=== PATIENT | male | born 1945 | race Caucasian/White ===

== ENCOUNTER 2020-03-26 19:06 | Emergency (ER) | payer OTHER, MEDICARE ==
[2020-03-26 19:58] LABS: Absolute Lymphocytes (CBC) 1.4 K/uL (0.7-4.9); Basophils % 0.4 % (0-1.3); Hematocrit 40.6 % (39.6-49.0); Lymphocytes % 24.2 % (15.3-44.8); RBC Red Blood Cell Count 4.45 M/uL (4.33-5.43)
[2020-03-26 20:14] LABS: ALT/SGPT 13 U/L (12-78); AST/SGOT 20 U/L (15-37); Alkaline Phosphatase 100 U/L (45-117); BUN Blood Urea Nitrogen 18 mg/dL (7-18); Bicarbonate 31 mmol/L (21-32); Bilirubin Direct 0.1 mg/dL (0-0.2); Bilirubin Total 0.4 mg/dL (0.2-1.0); Glucose Level 111 mg/dL (74-106); Magnesium 2.4 mg/dL (1.8-2.4); NT PRO-BNP 117 pg/mL (<450); Potassium 3.8 mmol/L (3.5-5.1); Protein, Total 8.5 g/dL (6.4-8.2); Sodium Level 140 mmol/L (136-145); Troponin (Emerg Dept Use Only) < 0.02 ng/mL (0.0-0.045)
[2020-03-26] MEDS ORDERED: HYDRALAZINE HCL 20 MG/ML VIAL ONE (20:45)
--- NOTE | 2020-03-26 21:02 | RAD REPORT ---
EXAM DESCRIPTION: RAD - Chest Single View - 03/26/2020 8:23 pm CLINICAL HISTORY: SOB Chest pain. COMPARISON: No comparisons FINDINGS: Portable technique limits examination quality. The lungs are emphysematous but grossly clear. The heart is normal in size. No displaced fractures. IMPRESSION: No acute intrathoracic process suspected.
--- NOTE | 2020-03-26 21:04 | RAD REPORT ---
EXAM DESCRIPTION: RAD - Foot Left 3 View - 03/26/2020 8:23 pm CLINICAL HISTORY: SMASH INJURY COMPARISON: No comparisons FINDINGS: Soft tissue injury seen involving the great toe. No underlying fracture is seen.
--- NOTE | 2020-03-26 21:04 | RAD REPORT ---
EXAM DESCRIPTION: RAD - Foot Right 3 View - 03/26/2020 8:23 pm CLINICAL HISTORY: SMASH INJURY COMPARISON: No comparisons FINDINGS: Soft tissue swelling is seen affecting the second toe. Oblique fracture involves phalanx o f the second toe is suspected.
--- NOTE | 2020-03-26 22:35 | EDPHYS ---
Physician Documentation [facility] Name: Gaurav Hector Age: 74 yrs Sex: Male : 1945 Arrival Date: 03/26/2020 Time: 19:07 Bed 8 Private MD: Sophy Lopez H ED Physician Allan Cuevas HPI: 03/26 19:36 This 74 yrs old Male presents to ER via Wheelchair with complaints of High pm1 Blood Pressure, Feet Swelling. 19:36 The patient has elevated blood pressure and discovered this at home, with a home pm1 device. Onset: The symptoms/episode began/occurred today. Associated signs and symptoms: Pertinent positives: shortness of breath, Pertinent negatives: chest pain, dizziness, headache, nausea, vomiting. Severity of symptoms: in the emergency department the blood pressure is unchanged. The patient has not experienced similar symptoms in the past, denies history of hypertension. The patient has been recently seen by a physician: the patient's primary care provider, wellness lab work. Patient dropped some weights on both of his feet 1 week ago and had some swelling. He is concerned that he might have a blood clot from the swelling to his feet. No swelling present to bilateral calves, shins, thighs or hamstrings. Historical: - Allergies: 19:31 Sulfa (Sulfonamide Antibiotics); mg2 - Home Meds: 19:31 levothyroxine oral [Active]; Carbidopa-Levodopa Oral [Active]; Sinemet Oral [Active]; mg2 - PMHx: 19:31 Parkinsons; Hypothyroidism; mg2 - PSHx: 19:31 None; mg2 - Immunization history:: Flu vaccine status is unknown. - Social history:: Smoking status: Patient denies any tobacco usage or history of. Patient uses alcohol, occasionally. Patient/guardian denies using street drugs, IV drugs. ROS: 19:36 Constitutional: Negative for fever, chills, and weight loss, Neck: Negative for injury, pm1 pain, and swelling, Cardiovascular: Negative for chest pain, palpitations, and edema. 19:36 Abdomen/GI: Negative for abdominal pain, nausea, vomiting, diarrhea, and constipation, Back: Negative for injury and pain, MS/Extremity: Negative for injury and deformity, Skin: Negative for injury, rash, and discoloration. 19:36 Neuro: Negative for headache, weakness, numbness, tingling, and seizure. 19:36 Respiratory: Positive for shortness of breath, Negative for cough, wheezing. Exam: 19:36 Constitutional: This is a well developed, well nourished patient who is awake, alert, pm1 and in no acute distress. Head/Face: Normocephalic, atraumatic. Neck: Trachea midline, no thyromegaly or masses palpated, and no cervical lymphadenopathy. Supple, full range of motion without nuchal rigidity, or vertebral point tenderness. No Meningismus. 19:36 Abdomen/GI: Soft, non-tender. No guarding or rebound. No evidence of tenderness throughout. Back: No spinal tenderness. No costovertebral tenderness. Full range of motion. Skin: Warm, dry with normal turgor. Normal color with no rashes, no lesions, and no evidence of cellulitis. 19:36 Cardiovascular: Exam negative for acute changes, Rate: normal, Rhythm: regular, Pulses: no pulse deficits are appreciated, Edema: is not appreciated. 19:36 Respiratory: Exam negative for acute changes, respiratory distress. 19:36 Musculoskeletal/extremity: Extremities: grossly normal except: noted in the dorsum of right foot and right second toe: swelling, tenderness. 19:36 Neuro: Exam negative for acute changes, Orientation: is normal, Motor: is normal. Vital Signs: 19:22 BP 203 / 106; Pulse 85; Resp 18; Temp 98; Pulse Ox 100% on R/A; Weight 54.43 kg; Height mg2 5 ft. 0 in. (152.40 cm); Pain 3/10; 20:19 BP 197 / 105; Pulse 94; Resp 18; Pulse Ox 100% on R/A; mg2 20:54 BP 150 / 90; Pulse 93; Resp 18; Pulse Ox 100% ; mg2 21:10 BP 153 / 89; Pulse 95; Resp 18; Pulse Ox 98% ; ea 21:59 BP 162 / 88; Pulse 95; Resp 20; Pulse Ox 100% on R/A; mg2 22:17 BP 139 / 80; Pulse 94; Resp 20; Pulse Ox 99% on R/A; mg2 19:22 Body Mass Index 23.44 (54.43 kg, 152.40 cm) mg2 MDM: 19:19 Patient medically screened. [facility] 20:06 Data reviewed: vital signs. Data interpreted: Pulse oximetry: on room air is 100 %. pm1 Interpretation: normal. 22:32 Counseling: I had a detailed discussion with the patient and/or guardian regarding: the pm1 historical points, exam findings, and any diagnostic results supporting the discharge/admit diagnosis, lab results, radiology results, the need for outpatient follow up, a family practitioner, to return to the emergency department if symptoms worsen or persist or if there are any questions or concerns that arise at home. 22:36 ED course: Patient does not want a prescription for blood pressure medications. Wants pm[facility]. then offered a low starting dose of lisinopril and patient and refused. 03/26 19:26 Order name: Basic Metabolic Panel; Complete Time: 20:14 pm03/26 19:26 Order name: CBC with Diff; Complete Time: 20:14 pm03/26 19:26 Order name: LFT's; Complete Time: 20:14 pm03/26 19:26 Order name: Magnesium; Complete Time: 20:14 pm03/26 19:26 Order name: NT PRO-BNP; Complete Time: 20:14 pm03/26 19:26 Order name: PT-INR; Complete Time: 20:14 pm03/26 19:26 Order name: Troponin (emerg Dept Use Only); Complete Time: 20:14 pm03/26 19:26 Order name: XRAY Chest (1 view); Complete Time: 21:09 pm03/26 19:27 Order name: Foot Right 3 View XRAY; Complete Time: 21: pm03/26 19:27 Order name: Foot Left 3 View XRAY; Complete Time: 21: pm03/26 20:31 Order name: CT Chest For PE Angio 03/26 19:26 Order name: EKG; Complete Time: 19:27 pm03/26 19:26 Order name: Cardiac monitoring; Complete Time: 19:30 pm03/26 19:26 Order name: EKG - Nurse/Tech; Complete Time: 19:30 pm03/26 19:26 Order name: IV Saline Lock; Complete Time: 19:30 pm03/26 19:26 Order name: Labs collected and sent; Complete Time: 19:30 pm1 03/26 19:26 Order name: O2 Per Protocol; Complete Time: 19:30 pm1 03/26 19:27 Order name: O2 Sat Monitoring; Complete Time: 19:31 pm1 03/26 22:15 Order name: Post-op Orthopedic Shoe; Complete Time: 22:32 pm1 Administered Medications: 20:36 Drug: hydrALAZINE 10 mg Route: IV; Rate: calculated rate; Site: right forearm; mg2 22:17 Follow up: Response: No adverse reaction; Blood pressure is lowered; IV Status: mg2 Completed infusion 22:35 Drug: Rocephin 1 grams Route: IV; Rate: calculated rate; Site: right antecubital; ea 22:50 Follow up: Response: No adverse reaction; IV Status: Completed infusion mg2 22:50 Drug: AZITHromycin 500 mg Route: PO; mg2 22:50 Follow up: Response: No adverse reaction; Medication administered at discharge. mg2 Disposition: 03/26/20 22:34 Discharged to Home. Impression: Pneumonia, unspecified organism, Essential (primary) hypertension, Nondisplaced fracture of proximal phalanx of left lesser toe(s) - second toe. - Condition is Stable. - Discharge Instructions: Hypertension, Community-Acquired Pneumonia, Adult, Toe Fracture, How to Take Your Blood Pressure, Snis-it-Rypt, DASH Eating Plan, Managing Your Hypertension. - Prescriptions for Zithromax Z- Flash 250 mg Oral Tablet - take 1 tablet by ORAL route as directed for 5 days Day 1 - take two (2) tablets one time. Day 2, 3, 4 , 5 take one (1) tablet once daily.; 6 tablet. - Medication Reconciliation Form, Thank You Letter, Antibiotic Education, Prescription Opioid Use form. - Follow up: Emergency Department; When: As needed; Reason: Worsening of condition. Follow up: Private Physician; When: 2 - 3 days; Reason: Recheck today's complaints, Continuance of care, Re-evaluation by your physician. - Problem is new. - Symptoms have improved. Addendum: 03/29/2020 10:18 Co-signature as Attending Physician, Allan Cuevas MD I agree with the assessment and c [place] plan of care. Signatures: Dispatcher [employer] EDAllan Flores MD MD cha Marinas, Patrick, ROUSTABOUT SUPERVISOR ROUSTABOUT SUPERVISOR pm1 Yeni Poe, RN RN summer Clem Davis, LENA RN mg2 Corrections: (The following items were deleted from the chart) 03/26 22:51 22:34 03/26/2020 22:34 Discharged to Home. Impression: Pneumonia, unspecified mg2 organismEssential (primary) hypertension; Nondisplaced fracture of proximal phalanx of left lesser toe(s) - second toe. Condition is Stable. Forms are Medication Reconciliation Form, Thank You Letter, Antibiotic Education, Prescription Opioid Use. Follow up: Emergency Department; When: As needed; Reason: Worsening of condition. Follow up: Private Physician; When: 2 - 3 days; Reason: Recheck today's complaints, Continuance of care, Re-evaluation by your physician. Problem is new. Symptoms have improved. pm1
--- NOTE | 2020-03-26 22:35 | ER ---
Nurse's Notes [facility] Name: Gaurav Hector Age: 74 yrs Sex: Male : 1945 Arrival Date: 03/26/2020 Time: 19:07 Bed 8 Private MD: Sophy Lopez H Diagnosis: Essential (primary) hypertension;Pneumonia, unspecified organism;Nondisplaced fracture of proximal phalanx of left lesser toe(s)-second toe Presentation: 03/26 19:22 Chief complaint: Spouse and/or significant other states: a week ago he tripped in the [facility] [place] and picked up a work out equipment and accidentally dropped on his feet. today his blood pressure was high 190/100. not diagnosed HTN. he also complained of shortness of breath but denies Chest pain. Coronavirus screen: Client denies travel out of the [place] in the last 14 days. At this time, the client does not indicate any symptoms associated with coronavirus-19. The client denies any previous COVID testing. Ebola Screen: No symptoms or risks identified at this time. Initial Sepsis Screen: Does the patient meet any 2 criteria? No. Patient's initial sepsis screen is negative. Does the patient have a suspected source of infection? No. Patient's initial sepsis screen is negative. Risk Assessment: Do you want to hurt yourself or someone else? Patient reports no desire to harm self or others. Onset of symptoms was March 2020. 19:22 Method Of Arrival: Wheelchair [facility] 19:22 Acuity: GO 2 [facility] Triage Assessment: 19:31 General: Appears in no apparent distress. comfortable, Behavior is calm, cooperative. mg2 Pain: Complains of pain in right foot and left foot. EENT: No signs and/or symptoms were reported regarding the EENT system. Neuro: Level of Consciousness is awake, alert, obeys commands, Oriented to person, place, time, situation. Cardiovascular: Capillary refill < 3 seconds Patient's skin is warm and dry. Respiratory: Reports shortness of breath Airway is patent Respiratory effort is even, unlabored, Respiratory pattern is regular, symmetrical. GI: No signs and/or symptoms were reported involving the gastrointestinal system. : No signs and/or symptoms were reported regarding the genitourinary system. Derm: Bruising that is dark purple, on left foot. Musculoskeletal: Circulation, motion, and sensation intact. Capillary refill < 3 seconds, Swelling present in right foot and left foot. Historical: - Allergies: 19:31 Sulfa (Sulfonamide Antibiotics); mg2 - Home Meds: 19:31 levothyroxine oral [Active]; Carbidopa-Levodopa Oral [Active]; Sinemet Oral [Active]; mg2 - PMHx: 19:31 Parkinsons; Hypothyroidism; mg2 - PSHx: 19:31 None; mg2 - Immunization history:: Flu vaccine status is unknown. - Social history:: Smoking status: Patient denies any tobacco usage or history of. Patient uses alcohol, occasionally. Patient/guardian denies using street drugs, IV drugs. Screenin:32 Abuse screen: Denies threats or abuse. Denies injuries from another. Nutritional mg2 screening: No deficits noted. Tuberculosis screening: No symptoms or risk factors identified. Fall Risk Secondary diagnosis (15 points) parkinsons. IV access (20 points). Assessment: 19:32 General: see triage note. mg2 20:54 Reassessment: Patient appears in no apparent distress at this time. Patient and/or mg2 family updated on plan of care and expected duration. Pain level reassessed. Patient is alert, oriented x 3, equal unlabored respirations, skin warm/dry/pink. 21:31 Reassessment: patient sent to CT scan ia stretcher. mg2 22:49 Reassessment: Patient appears in no apparent distress at this time. Patient is alert, mg2 oriented x 3, equal unlabored respirations, skin warm/dry/pink. Vital Signs: 19:22 BP 203 / 106; Pulse 85; Resp 18; Temp 98; Pulse Ox 100% on R/A; Weight 54.43 kg; Height mg2 5 ft. 0 in. (152.40 cm); Pain 3/10; 20:19 BP 197 / 105; Pulse 94; Resp 18; Pulse Ox 100% on R/A; mg2 20:54 BP 150 / 90; Pulse 93; Resp 18; Pulse Ox 100% ; mg2 21:10 BP 153 / 89; Pulse 95; Resp 18; Pulse Ox 98% ; ea 21:59 BP 162 / 88; Pulse 95; Resp 20; Pulse Ox 100% on R/A; mg2 22:17 BP 139 / 80; Pulse 94; Resp 20; Pulse Ox 99% on R/A; mg2 19:22 Body Mass Index 23.44 (54.43 kg, 152.40 cm) mg2 ED Course: 19:07 Patient arrived in ED. am2 19:07 Sophy Lopez DO is Private Physician. am2 19:08 Clem Davis, LENA is Primary Nurse. mg2 19:14 Kit Harrison NP is PHCP. pm1 19:19 Allan Cuevas MD is Attending Physician. [facility] 19:27 Triage completed. mg2 19:27 Arm band placed on. mg2 19:33 Patient has correct armband on for positive identification. mg2 19:33 No provider procedures requiring assistance completed. mg2 19:40 Inserted saline lock: 20 gauge in right forearm, using aseptic technique. Blood ds4 collected. 20:23 XRAY Chest (1 view) In Process Unspecified. EDMS 20:23 Foot Right 3 View XRAY In Process Unspecified. EDMS 20:23 Foot Left 3 View XRAY In Process Unspecified. EDMS 21:43 CT Chest For PE Angio In Process Unspecified. EDMS 22:32 Ortho shoe applied to right foot. mg2 22:49 IV discontinued, intact, bleeding controlled, No redness/swelling at site. Pressure mg2 dressing applied. Administered Medications: 20:36 Drug: hydrALAZINE 10 mg Route: IV; Rate: calculated rate; Site: right forearm; mg2 22:17 Follow up: Response: No adverse reaction; Blood pressure is lowered; IV Status: mg2 Completed infusion 22:35 Drug: Rocephin 1 grams Route: IV; Rate: calculated rate; Site: right antecubital; ea 22:50 Follow up: Response: No adverse reaction; IV Status: Completed infusion mg2 22:50 Drug: AZITHromycin 500 mg Route: PO; mg2 22:50 Follow up: Response: No adverse reaction; Medication administered at discharge. mg2 Outcome: 22:34 Discharge ordered by . pm1 22:51 Discharged to home via wheelchair, with family. mg2 22:51 Condition: stable 22:51 Discharge instructions given to patient, family, Instructed on discharge instructions, follow up and referral plans. medication usage, Demonstrated understanding of instructions, follow-up care, medications, Prescriptions given X 1. 22:51 Patient left the ED. mg2 Signatures: Dispatcher [employer] EDMA Allan Cuevas MD MD cha Swanson Amarjit ds4 Kit Harrison, OFFICE NURSE PRACTITIONER OFFICE NURSE PRACTITIONER pm1 Vidhi Burrell am2 Yeni Poe, RN RN ea Clem Davis RN RN mg2
[2020-03-26] MEDS ORDERED: CEFTRIAXONE/SWI 1gm 1 GM/10 ML SYR ONE (22:43)
[2020-03-26] MEDS ORDERED: AZITHROMYCIN 250 MG TAB ONE (22:49)
[2020-03-28 07:26] VITALS: BP 203/106; TEMP 98; O2SAT 100
--- NOTE | 2020-03-28 09:49 | RAD REPORT ---
EXAM DESCRIPTION: CT - Chest For Pe Angio - 03/27/2020 2:08 am CLINICAL HISTORY: 74 years Male SOB TECHNIQUE: Contiguous axial images obtained through the chest were obtained from the thoracic inlet to the level of the upper abdomen during the pulmonary arterial phase of intravenous contrast adminis tration. Coronal and sagittal reformatted and multiplanar MIP images provided. This CT exam was performed according to our departmental dose-optimization program, which includes on e or more of the following dose reduction techniques: automated exposure control, adjustment of the m A and/or kV according to patient size, and/or use of iterative reconstruction technique. COMPARISON: No prior exams provided for comparison. FINDINGS: There is no pulmonary embolus. Mild atherosclerosis without thoracic aortic aneurysm or dissection. The heart is normal in size with out pericardial effusion. There are subtle patchy groundglass airspace infiltrates in the right upper and left lower lobes. The re is mild bronchiectasis and scarring in the right middle lobe. Mild paraseptal emphysema in the api moi The lungs are otherwise clear. No pleural effusion or pneumothorax Parapelvic cyst vs. hydronephrosis in the upper pole of the left kidney, incompletely imaged. No acute osseous abnormality. IMPRESSION: No pulmonary embolus. Subtle patchy groundglass airspace infiltrates in the right upper and left lower lobes. Imaging featu res can be seen with Covid 19 pneumonia, though are nonspecific and can occur with a variety of infec tious and noninfectious processes. PneInd Parapelvic cyst vs. hydronephrosis in the upper pole of the left kidney. Follow ryann mcpherson. Electronically signed by: Salome Duran MD 03/26/2020 10:01 PM CDT Due to temporary technical issues with the PACS/Fluency reporting system, reports are being signed by the in house radiologist without review as a courtesy to ensure prompt reporting. The interpreting r adiologist is fully responsible for the content of the report.
--- NOTE | 2020-03-29 05:22 | EKG ---
Test Date: 2020-03-26 Test Time: 19:27:46 Surveillance Supervisor: SENDY MEASUREMENT RESULTS: Intervals: Rate: 84 OK: 144 QRSD: 96 QT: 354 QTc: 418 [place]: P: 93 OK: 144 QRS: 6 T: 52 INTERPRETIVE STATEMENTS: Normal sinus rhythm Normal ECG No previous ECG available for comparison Electronically Signed On 03-29-20 05:20:43 CDT by Rajat Warner
== END 2020-03-26 22:51 | disposition home or self-care (01) ==
LOC: ER 19:06
DX: J18.9 Pneumonia, unspecified organism (principal); I10 Essential (primary) hypertension; S92.515A Nondisplaced fracture of proximal phalanx of left lesser toe(s), initial encounter for closed fracture; W22.8XXA Striking against or struck by other objects, initial encounter; Y93.9 Activity, unspecified; Y92.009 Unspecified place in unspecified non-institutional (private) residence as the place of occurrence of the external cause; G20 Parkinson's disease; E03.9 Hypothyroidism, unspecified; Z88.2 Allergy status to sulfonamides
CPT/HCPCS: 96365; 93005; 85025; 80048; 36415; 83735; 85610; 80076; 84484; 83880; 71275; 71045; 73630 ×2; 96375; 99284; 96366; Q9967; J0360; J0696

== ENCOUNTER 2020-07-16 | Emergency (ER) | payer OTHER, MEDICARE ==
--- NOTE | 2020-07-16 14:51 | ER ---
Nurse's Notes [facility] Name: Gaurav Hector Age: 75 yrs Sex: Male : 1945 Arrival Date: 07/16/2020 Time: 14:01 Bed Waiting Private MD: Sophy Lopez H Diagnosis: Presentation: 07/16 14:30 Chief complaint: Pt's states "he's just been very weak since today around noon". aa5 Pt states "my mouth is very dry". Pt denies diarrhea, denies vomiting. Pt reports nausea and abdominal pain. Pt is A\\T\\O X 4. 14:30 Onset of symptoms was June 2020. aa5 14:30 Acuity: GO 2 aa5 14:30 Method Of Arrival: Wheelchair aa5 14:30 Coronavirus screen: nausea. Ebola Screen: Patient negative for fever greater than or aa5 equal to 101.5 degrees Fahrenheit, and additional compatible Ebola Virus Disease symptoms. Risk Assessment: Do you want to hurt yourself or someone else? Patient reports no desire to harm self or others. 14:30 Initial Sepsis Screen: Does the patient meet any 2 criteria? No. Patient's initial aa5 sepsis screen is negative. Does the patient have a suspected source of infection? No. Patient's initial sepsis screen is negative. Historical: - Allergies: 14:30 Sulfa (Sulfonamide Antibiotics); aa5 - Home Meds: 14:39 Carbidopa-Levodopa Oral [Active]; levothyroxine oral [Active]; aa5 - PMHx: 14:30 Hypothyroidism; Parkinsons; aa5 - PSHx: 14:30 None; aa5 - Immunization history:: Adult Immunizations unknown. - Social history:: Smoking status: Patient denies any tobacco usage or history of. Vital Signs: 14:30 BP 208 / 110; Pulse 80; Resp 20 S; Temp 98.4(TE); Pulse Ox 98% on R/A; aa5 ED Course: 14:01 Patient arrived in ED. ag5 14:01 Sophy Lopez DO is Private Physician. ag5 14:34 Arm band placed on. aa5 14:37 Triage completed. aa5 14:51 Allan Cuevas MD is Attending Physician. aa5 Administered Medications: No medications were administered Outcome: 14:51 Patient left the ED. aa5 Signatures: Nataly Danielle RN RN aa5 Josse Baker 5 Corrections: (The following items were deleted from the chart) 14:38 14:30 Chief complaint: Pt's states "he's just been very weak since today around aa5 noon". Pt states "my mouth is very dry". Pt denies diarrhea, denies vomiting. Pt reports nausea and abdominal pain. aa5
== END 2020-07-16 14:51 | disposition left against medical advice (07) ==
CPT/HCPCS: 99281

== ENCOUNTER 2021-04-04 11:52 | Emergency (ER) | payer OTHER, MEDICARE ==
[2021-04-04 13:02] LABS: Urine Blood Negative (Negative); Urine Glucose Trace (Negative); Urine Protein Negative (Negative); Urine pH 7.5 (5.0-7.0)
[2021-04-04 13:14] LABS: Absolute Lymphocytes (CBC) 0.8 K/uL (0.7-4.9); Basophils % 0.5 % (0-1.3); Hematocrit 38.7 % (39.6-49.0); MPV 8.5 fL (7.6-11.3); RBC Red Blood Cell Count 4.27 M/uL (4.33-5.43)
--- NOTE | 2021-04-04 13:30 | RAD REPORT ---
EXAM DESCRIPTION: CTStone Protocol - 04/04/2021 1:03 pm CLINICAL HISTORY: . PAIN COMPARISON: No comparisons TECHNIQUE: Biphasic CT imaging of the abdomen and pelvis was performed with 100 ml non-ionic IV cont rast. All CT scans are performed using dose optimization technique as appropriate and may include automated exposure control or mA/KV adjustment according to patient size. FINDINGS: Lower chest: Nonspecific ground-glass opacities are present in the left lower lobe. There is a masslike nodule in the right middle lobe measuring 2.2 cm. Coronary artery calcifications and/or stents. Trace pericardial effusion. Liver: No acute abnormality or suspicious lesions. Biliary: No biliary ductal dilatation. Stomach: No significant focal abnormality. Duodenum: No significant focal abnormality. Pancreas: No significant abnormality. Spleen: No significant abnormality. Adrenal: No suspicious lesions. Kidney/ureter: Moderate left-side hydronephrosis. Punctate stone in the right kidney. Retroperitoneum: No retroperitoneal adenopathy. Vascular: No aneurysm. Atherosclerosis. Bowel: No significant focal abnormality. Peritoneum: No ascites or free air. Bladder: Distended bladder. Reproductive: No adnexal masses. Bones: No acute fracture. Other: n/a IMPRESSION: Severely distended bladder with left-sided hydronephrosis. Findings are concerning for a cute urinary retention.
[2021-04-04 13:32] LABS: Albumin 4.3 g/dL (3.4-5.0); Bilirubin Direct 0.2 mg/dL (0-0.2); Bilirubin Total 0.7 mg/dL (0.2-1.0); Potassium 3.8 mmol/L (3.5-5.1); Protein, Total 8.4 g/dL (6.4-8.2)
[2021-04-04] MEDS ORDERED: TAMSULOSIN 0.4 MG SR CAP ONE (15:02)
[2021-04-04] MEDS ORDERED: CEFTRIAXONE/SWI 1gm 1 GM/10 ML SYR ONE (15:03)
--- NOTE | 2021-04-04 16:36 | EDPHYS ---
Physician Documentation [facility] Name: Gaurav Hector Age: 76 yrs Sex: Male : 1945 Arrival Date: 04/04/2021 Time: 11:53 Bed 27 Private MD: ANDRÉS Physician Allan Cuevas HPI: 04/04 16:31 This 76 yrs old Male presents to ER via Ambulatory with complaints of Pain windy With Urination. 16:31 The patient presents with urinary symptoms, retention. Onset: The symptoms/episode windy began/occurred 5 day(s) ago. Modifying factors: The symptoms are alleviated by remaining still, the symptoms are aggravated by nothing. Associated signs and symptoms: The patient has no apparent associated signs or symptoms. Severity of symptoms: At their worst the symptoms were moderate, in the emergency department the symptoms are unchanged. The patient has not experienced similar symptoms in the past. Historical: - Allergies: 12:35 Sulfa (Sulfonamide Antibiotics); kg - Home Meds: 12:35 levothyroxine oral [Active]; Carbidopa-Levodopa Oral [Active]; Sinemet Oral [Active]; kg rasagiline oral [Active]; amantadine HCl Oral [Active]; testosterone cypionate intramuscular [Active]; - PMHx: 12:35 Hypothyroidism; Parkinsons; kg - PSHx: 12:35 Tonsillectomy; Adenoid excision; kg - Immunization history:: Adult Immunizations not up to date, Client reports receiving the 2nd dose of the Covid vaccine, Date received: September 2020 [facility] Client reports receiving the 1st dose of the Covid vaccine, August 2020 [facility]. - Social history:: Smoking status: Patient/guardian denies using tobacco, but has a distant history of tobacco abuse, Patient uses alcohol, on a daily basis. ROS: 16:32 Constitutional: Negative for fever, chills, and weight loss, Eyes: Negative for injury, windy pain, redness, and discharge, ENT: Negative for injury, pain, and discharge, Neck: Negative for injury, pain, and swelling, Cardiovascular: Negative for chest pain, palpitations, and edema, Respiratory: Negative for shortness of breath, cough, wheezing, and pleuritic chest pain, Back: Negative for injury and pain, : Negative for injury, bleeding, discharge, and swelling, MS/Extremity: Negative for injury and deformity, Skin: Negative for injury, rash, and discoloration, Neuro: Negative for headache, weakness, numbness, tingling, and seizure, Psych: Negative for depression, anxiety, suicide ideation, homicidal ideation, and hallucinations, Allergy/Immunology: Negative for hives, rash, and allergies, Endocrine: Negative for neck swelling, polydipsia, polyuria, polyphagia, and marked weight changes, Hematologic/Lymphatic: Negative for swollen nodes, abnormal bleeding, and unusual bruising. 16:32 Abdomen/GI: Positive for abdominal pain, of the umbilical area, suprapubic area, right lower quadrant and left lower quadrant. 16:32 : Positive for small amounts. Exam: 16:32 Constitutional: This is a well developed, well nourished patient who is awake, alert, windy and in no acute distress. Head/Face: Normocephalic, atraumatic. Eyes: Pupils equal round and reactive to light, extra-ocular motions intact. Lids and lashes normal. Conjunctiva and sclera are non-icteric and not injected. Cornea within normal limits. Periorbital areas with no swelling, redness, or edema. ENT: Nares patent. No nasal discharge, no septal abnormalities noted. Tympanic membranes are normal and external auditory canals are clear. Oropharynx with no redness, swelling, or masses, exudates, or evidence of obstruction, uvula midline. Mucous membranes moist. Neck: Trachea midline, no thyromegaly or masses palpated, and no cervical lymphadenopathy. Supple, full range of motion without nuchal rigidity, or vertebral point tenderness. No Meningismus. Chest/axilla: Normal chest wall appearance and motion. Nontender with no deformity. No lesions are appreciated. Cardiovascular: Regular rate and rhythm with a normal S1 and S2. No gallops, murmurs, or rubs. Normal PMI, no JVD. No pulse deficits. Respiratory: Lungs have equal breath sounds bilaterally, clear to auscultation and percussion. No rales, rhonchi or wheezes noted. No increased work of breathing, no retractions or nasal flaring. Back: No spinal tenderness. No costovertebral tenderness. Full range of motion. Male : Normal genitalia with no discharge or lesions. Skin: Warm, dry with normal turgor. Normal color with no rashes, no lesions, and no evidence of cellulitis. MS/ Extremity: Pulses equal, no cyanosis. Neurovascular intact. Full, normal range of motion. Neuro: Awake and alert, GCS 15, oriented to person, place, time, and situation. Cranial nerves II-XII grossly intact. Motor strength 5/5 in all extremities. Sensory grossly intact. Cerebellar exam normal. Normal gait. Psych: Awake, alert, with orientation to person, place and time. Behavior, mood, and affect are within normal limits. 16:32 Abdomen/GI: Inspection: distension, Bowel sounds: normal, Palpation: moderate abdominal tenderness, in the umbilical area, right lower quadrant and left lower quadrant, Liver: no appreciated palpable abnormalities, Hernia: not appreciated. Vital Signs: 12:29 BP 156 / 93; Pulse 74; Resp 20; Temp 98.0; Pulse Ox 100% on R/A; Weight 54.43 kg (R); kg Height 5 ft. 9 in. (175.26 cm); Pain 4/10; 14:42 BP 174 / 89; Pulse 66; Resp 18; Pulse Ox 100% on R/A; ld1 15:59 BP 162 / 98; Pulse 81; Resp 18; Pulse Ox 100% on R/A; Pain 0/10; ld1 12:29 Body Mass Index 17.72 (54.43 kg, 175.26 cm) kg MDM: 13:42 Patient medically screened. windy 16:33 Differential diagnosis: nonspecific abdominal pain, UTI, urinary retention. Data windy reviewed: vital signs, nurses notes, lab test result(s), radiologic studies, CT scan. Data interpreted: child monitor: rate is 81 beats/min, rhythm is regular, Pulse oximetry: on room air is 100 %. Counseling: I had a detailed discussion with the patient and/or guardian regarding: the historical points, exam findings, and any diagnostic results supporting the discharge/admit diagnosis, lab results, radiology results, the need for outpatient follow up, for definitive care, a family practitioner, a urologist. 04/04 12:40 Order name: Basic Metabolic Panel; Complete Time: 13:43 kg 04/04 12:40 Order name: CBC with Diff; Complete Time: 13:43 kg 04/04 12:40 Order name: Hepatic Function; Complete Time: :43 kg 04/04 12:40 Order name: Lipase; Complete Time: 13:43 kg 04/04 12:40 Order name: CT Stone Protocol; Complete Time: 13:43 kg 04/04 13:01 Order name: Urine Dipstick-Ancillary; Complete Time: 13:43 EDMS 04/04 12:40 Order name: IV Saline Lock; Complete Time: 12:40 kg 04/04 12:40 Order name: Labs collected and sent; Complete Time: 12:40 kg 04/04 13:44 Order name: Carr Leg Bag; Complete Time: 14:37 windy Administered Medications: 14:41 Drug: Rocephin (cefTRIAXone) 1 grams Route: IV; Rate: per protocol; Site: right hand; ld1 14:41 Follow up: Response: No adverse reaction ld1 14:41 Drug: Flomax (tamsulosin) 0.4 mg Route: PO; ld1 14:41 Follow up: Response: No adverse reaction ld1 17:04 Not Given (Other Intervention Used): Cipro (ciprofloxacin) 500 mg PO once ld1 Disposition Summary: 04/04/21 16:35 Discharge Ordered Location: Home windy Problem: new windy Symptoms: have improved windy Condition: Stable windy Diagnosis - UTI/ Urinary tract infection, site not specified windy - Retention of urine, unspecified - PVR GREATER THAN 1 LITER windy Followup: windy - With: Private Physician - When: 2 - 3 days - Reason: Recheck today's complaints, Continuance of care, Re-evaluation by your physician Followup: windy - With: Atif Hyman MD - When: 2 - 3 days - Reason: Recheck today's complaints, Re-evaluation by your physician Discharge Instructions: - Discharge Summary Sheet windy - Dysuria windy - Acute Urinary Retention, Male windy - Urinary Tract Infection, Adult windy - Urinary Tract Infection, Adult, [id number] windy - Acute Urinary Retention, Male, Smsk-[id number] [facility] Forms: - Medication Reconciliation Form windy - Thank You Letter windy - Antibiotic Education [facility] - Prescription Opioid Use [facility] Prescriptions: - tamsulosin 0.4 mg Oral capsule - take 1 capsule by ORAL route once daily 1/2 hour following the same meal each windy day; 30 capsule; Refills: 0, Product Selection Permitted - Cipro 250 mg Oral Tablet - take 1 tablet by ORAL route every 12 hours; 20 tablet; Refills: 0, Product windy Selection Permitted Signatures: Dispatcher [employer] Allan Caal MD MD cha Dibbern, Lauren RN RN ld1 Mayra Siu RN RN kg
--- NOTE | 2021-04-04 16:36 | ER ---
Nurse's Notes [facility] Name: Gaurav Hector Age: 76 yrs Sex: Male : 1945 Arrival Date: 04/04/2021 Time: 11:53 Bed 27 Private MD: Diagnosis: UTI/ Urinary tract infection, site not specified;Retention of urine, unspecified-PVR GREATER THAN 1 LITER Presentation: 04/04 12:29 Chief complaint: Patient states: Was sent over by Dr. Urban for possible urinary kg obstruction. Pt had been being treated for UTI by Dr. Urban was prescribed Nitrofurantoin which he finished. Was sent over to have Xray yesterday and his nurse called and said that he need to come to ER. Coronavirus screen: Vaccine status: Patient reports receiving the 2nd dose of the covid vaccine. Step-In Patient reports receiving the 1st dose of the Covid vaccine. Step-In Client denies travel out of the [place] in the last 14 days. At this time, the client does not indicate any symptoms associated with coronavirus-19. Ebola Screen: Patient negative for fever greater than or equal to 101.5 degrees Fahrenheit, and additional compatible Ebola Virus Disease symptoms Patient denies exposure to infectious person. Patient denies travel to an Ebola-affected area in the 21 days before illness onset. No symptoms or risks identified at this time. Initial Sepsis Screen: Does the patient meet any 2 criteria? No. Patient's initial sepsis screen is negative. Does the patient have a suspected source of infection? No. Patient's initial sepsis screen is negative. Risk Assessment: Do you want to hurt yourself or someone else? Patient reports no desire to harm self or others. Onset of symptoms was April 03, 2021. 12:29 Method Of Arrival: Ambulatory kg 12:29 Acuity: GO 3 kg Triage Assessment: 12:35 General: Appears in no apparent distress. Behavior is calm, cooperative, appropriate kg for age, quiet. Pain: Complains of pain in right lower quadrant and left lower quadrant. Historical: - Allergies: 12:35 Sulfa (Sulfonamide Antibiotics); kg - Home Meds: 12:35 levothyroxine oral [Active]; Carbidopa-Levodopa Oral [Active]; Sinemet Oral [Active]; kg rasagiline oral [Active]; amantadine HCl Oral [Active]; testosterone cypionate intramuscular [Active]; - PMHx: 12:35 Hypothyroidism; Parkinsons; kg - PSHx: 12:35 Tonsillectomy; Adenoid excision; kg - Immunization history:: Adult Immunizations not up to date, Client reports receiving the 2nd dose of the Covid vaccine, Date received: September 2020 [facility] Client reports receiving the 1st dose of the Covid vaccine, August 2020 [facility]. - Social history:: Smoking status: Patient/guardian denies using tobacco, but has a distant history of tobacco abuse, Patient uses alcohol, on a daily basis. Screenin:42 Abuse screen: Denies threats or abuse. Denies injuries from another. Nutritional ld1 screening: No deficits noted. Tuberculosis screening: No symptoms or risk factors identified. Fall Risk None identified. Assessment: 14:42 General: Appears in no apparent distress. uncomfortable, Behavior is calm, cooperative, ld1 appropriate for age. Pain: Denies pain. Neuro: Level of Consciousness is awake, alert, obeys commands, Oriented to person, place, time, situation. Cardiovascular: Capillary refill < 3 seconds Patient's skin is warm and dry. Respiratory: Airway is patent Respiratory effort is even, unlabored, Respiratory pattern is regular, symmetrical. GI: Abdomen is round distended, Reports lower abdominal pain. : Urine is cloudy, Reports burning with urination, inability to void. EENT: No signs and/or symptoms were reported regarding the EENT system. Derm: No signs and/or symptoms reported regarding the dermatologic system. Musculoskeletal: No signs and/or symptoms reported regarding the musculoskeletal system. 15:59 Reassessment: Patient appears in no apparent distress at this time. No changes from ld1 previously documented assessment. Patient and/or family updated on plan of care and expected duration. Pain level reassessed. Patient is alert, oriented x 3, equal unlabored respirations, skin warm/dry/pink. Vital Signs: 12:29 BP 156 / 93; Pulse 74; Resp 20; Temp 98.0; Pulse Ox 100% on R/A; Weight 54.43 kg (R); kg Height 5 ft. 9 in. (175.26 cm); Pain 4/10; 14:42 BP 174 / 89; Pulse 66; Resp 18; Pulse Ox 100% on R/A; ld1 15:59 BP 162 / 98; Pulse 81; Resp 18; Pulse Ox 100% on R/A; Pain 0/10; ld1 12:29 Body Mass Index 17.72 (54.43 kg, 175.26 cm) kg ED Course: 11:53 Patient arrived in ED. am2 12:35 Triage completed. kg 12:40 Initial lab(s) drawn, by me, sent to lab. Inserted saline lock: 20 gauge in right aa5 forearm, using aseptic technique. Blood collected. 13:03 CT Stone Protocol In Process Unspecified. EDMS 13:42 Allan Cuevas MD is Attending Physician. [facility] 14:42 No provider procedures requiring assistance completed. ld1 14:42 Patient has correct armband on for positive identification. Placed in gown. Bed in low ld1 position. Call light in reach. Side rails up X2. panel monitor on. Pulse ox on. NIBP on. Door closed. Noise minimized. Warm blanket given. 16:34 Atif Hyman MD is Referral Physician. windy Administered Medications: 14:41 Drug: Rocephin (cefTRIAXone) 1 grams Route: IV; Rate: per protocol; Site: right hand; ld1 14:41 Follow up: Response: No adverse reaction ld1 14:41 Drug: Flomax (tamsulosin) 0.4 mg Route: PO; ld1 14:41 Follow up: Response: No adverse reaction ld1 17:04 Not Given (Other Intervention Used): Cipro (ciprofloxacin) 500 mg PO once ld1 Outcome: 16:35 Discharge ordered by . [facility] 17:04 Patient left the ED. ld1 Signatures: Dispatcher [employer] EDTX Allan Cuevas MD MD cha Calderon, Audri, RN RN aa5 Vidhi Burrell am2 Josephine Stern, RN RN ld1 Mayra Siu, LENA RN kg Corrections: (The following items were deleted from the chart) 12:49 12:30 Inserted saline lock: 20 gauge in right forearm, using aseptic technique. Blood aa5 collected. aa5 12:49 12:30 Initial lab(s) drawn, by me, sent to lab. aa5 aa5
[2021-04-04 17:52] VITALS: TEMP 98; O2SAT 100
[2021-04-04 17:55] VITALS: BP 162/98
== END 2021-04-04 17:04 | disposition home or self-care (01) ==
LOC: ER 11:52
DX: N39.0 Urinary tract infection, site not specified (principal); E03.9 Hypothyroidism, unspecified; G20 Parkinson's disease; Z88.2 Allergy status to sulfonamides
CPT/HCPCS: 85025; 80048; 36415; 80076; 81003; 83690; 76377; 74176; 96374; 99284; J0696

== ENCOUNTER 2021-04-07 21:49 | Emergency (ER) | payer OTHER, MEDICARE ==
--- NOTE | 2021-04-08 00:35 | ER ---
Nurse's Notes [facility] Name: Gaurav Hector Age: 76 yrs Sex: Male : 1945 Arrival Date: 04/07/2021 Time: 21:51 Bed 24 Private MD: Diagnosis: Encounter for curry replacement Presentation: 04/07 21:58 Chief complaint: Patient states: was here 2 days ago and they put a catheter in, now it em is not draining, reports suprapubic pain. Coronavirus screen: Vaccine status: Patient reports receiving the 2nd dose of the covid vaccine. Ebola Screen: Patient negative for fever greater than or equal to 101.5 degrees Fahrenheit, and additional compatible Ebola Virus Disease symptoms Patient denies exposure to infectious person. Patient denies travel to an Ebola-affected area in the 21 days before illness onset. No symptoms or risks identified at this time. Initial Sepsis Screen: Does the patient meet any 2 criteria? No. Patient's initial sepsis screen is negative. Does the patient have a suspected source of infection? No. Patient's initial sepsis screen is negative. Risk Assessment: Do you want to hurt yourself or someone else? Patient reports no desire to harm self or others. Onset of symptoms was April 07, 2021. 21:58 Method Of Arrival: Wheelchair em 21:58 Acuity: GO 3 em Triage Assessment: 22:10 General: Appears uncomfortable. Pain: Complains of pain in abdomen Pain currently is 10 kh1 out of 10 on a pain scale. Quality of pain is described as pressure, Pain began 2 hours ago. Is continuous, Alleviated by nothing. 22:10 General: Appears Behavior is calm, cooperative. kh1 Historical: - Allergies: 21:59 Sulfa (Sulfonamide Antibiotics); em - PMHx: 21:59 Hypothyroidism; Parkinsons; em - PSHx: 21:59 Tonsillectomy; Adenoid excision; em - Immunization history:: Adult Immunizations up to date. - Social history:: Smoking status: Patient denies any tobacco usage or history of. Screenin:10 Abuse screen: Denies threats or abuse. Nutritional screening: No deficits noted. kh1 Tuberculosis screening: No symptoms or risk factors identified. Fall Risk Ambulatory Aid- None/Bed Rest/Nurse Assist (0 pts). Assessment: 22:10 GI: Bowel sounds present X 4 quads. kh1 22:30 Reassessment: No changes from previously documented assessment. Indwelling curry kh1 catheter removed as ordered with 18 Fr curry catheter reinserted with no difficulty using sterile techniqe draining slightly cloudy yellow urine to dependent bag, rk. well; reports feeling better with flow of urine; remains \\T\\ bedside.. 23:15 Reassessment: To CT via stretcher.. kh1 23:30 Reassessment: Patient appears in no apparent distress at this time. Returned from CT kh1 via stretcher; reports feeling better; reports suprapubic pain discomfort has decreased from "10" to "3" on pain scale; 200ml yellow urine noted of dependent bag.. 04/08 00:55 Reassessment: Patient appears in no apparent distress at this time. Patient denies pain cc4 at this time. Patient states feeling better. Patient states symptoms have improved. 350ml light yellow urine emptied of curry catheter; curry catheter drain bag exchanged with leg bag using sterile technique, rk. well; discharge instructions given with v/u; denies any c/o pain.. Vital Signs: 04/07 21:58 BP 148 / 86; Pulse 88; Resp 18; Temp 98.6; Pulse Ox 100% on R/A; Weight 54.43 kg; em Height 5 ft. 9 in. (175.26 cm); Pain 9/10; 22:10 BP 153 / 95; Pulse 79; Resp 20; Temp 98.0; Pulse Ox 100% on R/A; kh1 23:30 BP 144 / 82; Pulse 74; Resp 20; Temp 97.7(O); kh1 04/08 00:55 BP 125 / 72; Pulse 73; Resp 20; Temp 98(O); cc4 04/07 21:58 Body Mass Index 17.72 (54.43 kg, 175.26 cm) em ED Course: 04/07 21:51 Patient arrived in ED. cf2 21:59 Triage completed. em 21:59 Arm band placed on. em 22:02 Patience Ruelas FNP-C [facility] kb 22:02 Riccardo Shaw MD is Attending Physician. kb 22:10 Patient has correct armband on for positive identification. Bed in low position. Call [facility] light in reach. Side rails up X2. Adult w/ patient. Head of bed elevated. 22:10 Indwelling catheter intact \\T\\ maintained to dependent leg bag with 200ml dark ilene [facility] urine noted of bag; reports same urine output x 2 hours with increasing suprapubic discomfort/pain "10" on pain scale at present time; distention with firmness palpated suprapubic area; present \\T\\ bedside. 22:17 Sheridan Donis is Primary Nurse. [facility] 23:24 CT Stone Protocol In Process Unspecified. EDPR 04/08 00:34 Atif Hyman MD is Referral Physician. kb Administered Medications: No medications were administered Outcome: 04/07 22:10 Condition: stable [facility] 04/08 00:34 Discharge ordered by . seferino 02:02 Patient left the ED. cc4 Signatures: Dispatcher [employer] EDPR Patience Ruelas, PHTHALIC ACID PURIFIER-C PHTHALIC ACID PURIFIER-Earl Hanson RN RN Irina Veliz 2 Sheridan Donis [facility] Shreya Burt cc4
--- NOTE | 2021-04-08 00:35 | EDPHYS ---
Physician Documentation [facility] Name: Gaurav Hector Age: 76 yrs Sex: Male : 1945 Arrival Date: 04/07/2021 Time: 21:51 Bed 24 Private MD: ED Physician Riccardo Shaw HPI: 04/07 22:30 This 76 yrs old Male presents to ER via Wheelchair with complaints of kb Abdominal Swelling, Problem With Urinary Catheter. 22:30 The patient presents with a Curry catheter problem, is not draining. Onset: The kb symptoms/episode began/occurred today. Modifying factors: The symptoms are alleviated by nothing, the symptoms are aggravated by nothing. Associated signs and symptoms: The patient has no apparent associated signs or symptoms. Severity of symptoms: At their worst the symptoms were mild, in the emergency department the symptoms are unchanged. The patient has not experienced similar symptoms in the past. The patient has not recently seen a physician. Pt reports his curry hasn't been draining since 1600 today. . Historical: - Allergies: 21:59 Sulfa (Sulfonamide Antibiotics); em - PMHx: 21:59 Hypothyroidism; Parkinsons; em - PSHx: 21:59 Tonsillectomy; Adenoid excision; em - Immunization history:: Adult Immunizations up to date. - Social history:: Smoking status: Patient denies any tobacco usage or history of. ROS: 22:29 Constitutional: Negative for fever, chills, and weight loss. kb 22:29 Abdomen/GI: Positive for of the suprapubic area, fullness. 22:29 All other systems are negative. Exam: 22:29 Constitutional: This is a well developed, well nourished patient who is awake, alert, kb and in no acute distress. Head/Face: Normocephalic, atraumatic. ENT: Moist Mucous membranes Respiratory: Respirations even and unlabored. No increased work of breathing, no retractions or nasal flaring. Abdomen/GI: Soft, non-tender. No distention Skin: Warm, dry with normal turgor. Normal color. MS/ Extremity: Pulses equal, no cyanosis. Neurovascular intact. Full, normal range of motion. Neuro: Awake and alert, GCS 15, oriented to person, place, time, and situation. Moves all extremities. Normal gait. Psych: Awake, alert, with orientation to person, place and time. Behavior, mood, and affect are within normal limits. Vital Signs: 21:58 BP 148 / 86; Pulse 88; Resp 18; Temp 98.6; Pulse Ox 100% on R/A; Weight 54.43 kg; em Height 5 ft. 9 in. (175.26 cm); Pain 9/10; 22:10 BP 153 / 95; Pulse 79; Resp 20; Temp 98.0; Pulse Ox 100% on R/A; kh1 23:30 BP 144 / 82; Pulse 74; Resp 20; Temp 97.7(O); kh1 04/08 00:55 BP 125 / 72; Pulse 73; Resp 20; Temp 98(O); cc4 04/07 21:58 Body Mass Index 17.72 (54.43 kg, 175.26 cm) em MDM: 04/07 22:02 Patient medically screened. 22:24 Data reviewed: vital signs, nurses notes. Data interpreted: Pulse oximetry: on room air kb is 100 %. Interpretation: normal. Counseling: I had a detailed discussion with the patient and/or guardian regarding: the historical points, exam findings, and any diagnostic results supporting the discharge/admit diagnosis, the need for outpatient follow up, a urologist, to return to the emergency department if symptoms worsen or persist or if there are any questions or concerns that arise at home. 04/07 22:57 Order name: CT Stone Protocol 04/07 22:10 Order name: Curry: replace curry; Complete Time: 22:34 kb Administered Medications: No medications were administered Disposition: 04/08 05:53 Co-signature as Attending Physician, Riccardo Shaw MD. [email or web address] Disposition Summary: 04/08/21 00:34 Discharge Ordered Location: Home Condition: Stable Diagnosis - Encounter for curry replacement Followup: kb - With: Emergency Department - When: As needed - Reason: Worsening of condition Followup: kb - With: Private Physician - When: 2 - 3 days - Reason: Recheck today's complaints, Continuance of care, Re-evaluation by your physician Followup: kb - With: Atif Hyman MD - When: 2 - 3 days - Reason: Recheck today's complaints Discharge Instructions: - Discharge Summary Sheet kb - Indwelling Urinary Catheter Care, Adult, [id number] kb Forms: - Medication Reconciliation Form kb - Thank You Letter kb - Antibiotic Education kb - Prescription Opioid Use kb Signatures: Dispatcher [employer] Patience Florence FNP-C FNP-Ckb Munoz, Edgar, RN RN Riccardo Garcia MD MD [address] [place] [facility]
[2021-04-08 02:07] VITALS: O2SAT 100
[2021-04-08 02:11] VITALS: BP 125/72; TEMP 98
--- NOTE | 2021-04-08 13:29 | RAD REPORT ---
EXAM DESCRIPTION: CT - Stone Protocol - 04/08/2021 6:39 am COMPARISON: CT abdomen and pelvis April 04, 2021 CLINICAL HISTORY: [facility] MAIN DISTENTION TECHNIQUE: CT of the abdomen and pelvis was acquired without IV contrast material. Coronal and sag ittal reconstructions were obtained. Automated exposure control was utilized on this examination as a dose lowering technique. FINDINGS: Lung bases: Bibasilar groundglass opacities are present. *Evaluation of solid organs is limited due to lack of IV contrast. Liver: Normal. Gallbladder and biliary: Decompressed gallbladder. Unremarkable biliary tree. Pancreas: Normal. Spleen: Normal. Adrenal glands: Normal adrenal glands. Kidneys: Punctate nonobstructing right renal calculus. The kidneys are otherwise unremarkable. Stomach and Small Bowel: The stomach and small bowel are normal. Urinary bladder: Carr catheter in place. Bladder wall thickening, not well visualized. Prostate/Male Urogenital: Coarse calcifications are noted. Colon and Appendix: The colon is unremarkable. No evidence of appendicitis. Retroperitoneum and lymph nodes: No significant adenopathy. Limited visualization due to lack of IV c ontrast. Vascular: Moderate multivessel atherosclerosis. Peritoneal cavity: No ascites or free air. Musculoskeletal and soft tissues: Soft tissues are unremarkable. No aggressive bone lesions. No com pression fracture. IMPRESSION 1. Bladder wall thickening with Carr catheter in place. Bladder wall thickening may be due to cystitis or decompression. This is not well-visualized due to lack of IV contrast. 2. Punctate nonobstructing right renal calculus. No evidence of obstruction. 3. Bibasilar groundglass opacities may represent pneumonia, stable from April 04.. Electronically signed by: Mc Sanon MD 04/08/2021 12:20 AM CDT Due to temporary technical issues with the PACS/Fluency reporting system, reports are being signed by the in house radiologists without review as a courtesy to insure prompt reporting. The interpreting radiologist is fully responsible for the content of the report.
== END 2021-04-08 02:02 | disposition home or self-care (01) ==
LOC: ER 21:49
DX: T83.098A Other mechanical complication of other urinary catheter, initial encounter (principal); G20 Parkinson's disease
CPT/HCPCS: 74176; 76377; 99283

== ENCOUNTER 2021-04-16 07:33 | Inpatient (IN) | payer OTHER, MEDICARE ==
[2021-04-16 08:07] LABS: Protime INR 1.02
[2021-04-16 08:12] LABS: Absolute Lymphocytes (CBC) 0.6 K/uL (0.7-4.9); Basophils % 0.4 % (0-1.3); Hematocrit 39.5 % (39.6-49.0); Lymphocytes % 9.9 % (15.3-44.8); MPV 8.6 fL (7.6-11.3); RBC Red Blood Cell Count 4.34 M/uL (4.33-5.43)
--- NOTE | 2021-04-16 08:12 | RAD REPORT ---
EXAM DESCRIPTION: CT - CTHCSPWOC - 04/16/2021 7:57 am CLINICAL HISTORY: PAIN COMPARISON: MRI BRAIN WITHOUT CONTRAST dated 10/06/2013 TECHNIQUE: Axial 5 mm thick images of the head were obtained. Axial 2 mm thick images of the cervic al spine were obtained with sagittal and coronal reconstruction images generated and reviewed. All CT scans are performed using dose optimization technique as appropriate and may include automated exposure control or mA/KV adjustment according to patient size. FINDINGS: No intracranial hemorrhage, mass, edema or acute intracranial finding. No acute cortical b ased infarction seen. No cortical edema or sulcal effacement. Mild to moderate atrophy changes are pr esent with ventricles in proportion to volume loss. Pattern is similar to mildly progressive from 201 4. Cerebral white matter chronic ischemic pattern not significantly different from comparison. Arteri al and physiologic calcifications are present. Mastoid air cells and paranasal sinuses are clear. No globe or orbit abnormality seen. No acute bone finding. Cervical body height and alignment are normal. C5-6 moderate severity degenerative disc and endplate changes are present. Minimal bony foraminal encroachment present at C5-6. Patient has disc narrowing and spurring changes near the exit foramina at C3-4. Minimal bony foraminal encroachment on the right . . No fracture or acute bony abnormality. Central canal detail is inherently limited. No paraspinal mass or hematoma. IMPRESSION: No hemorrhage, edema or other acute intracranial finding identifiable. Mild to moderate atrophy present with ventricles in proportion. This is stable to mildly progressive from 2014. Chronic ischemic pattern is not clearly different. Cervical spine degenerative changes are present as detailed. No acute findings identifiable.
[2021-04-16 08:19] LABS: Urine Blood Trace-intact (Negative); Urine Glucose Negative (Negative); Urine Protein Negative (Negative)
[2021-04-16] MEDS ORDERED: NA CHLORIDE 0.9% 1,000 ML ONE (08:19)
[2021-04-16 08:20] LABS: ALT/SGPT 14 U/L (12-78); AST/SGOT 16 U/L (15-37); Albumin 3.7 g/dL (3.4-5.0); Alkaline Phosphatase 84 U/L (45-117); BUN Blood Urea Nitrogen 25 mg/dL (7-18); Bicarbonate 28 mmol/L (21-32); Bilirubin Direct 0.1 mg/dL (0-0.2); Bilirubin Total 0.4 mg/dL (0.2-1.0); CKMB Creatine Kinase MB 3.5 ng/mL (1.0-3.6); Creatine Phosphokinase 145 U/L (39-308); Glucose Level 95 mg/dL (74-106); Lipase 91 U/L (73-393); Magnesium 2.4 mg/dL (1.8-2.4); Potassium 3.7 mmol/L (3.5-5.1); Protein, Total 7.5 g/dL (6.4-8.2); Sodium Level 143 mmol/L (136-145); Troponin (Emerg Dept Use Only) < 0.02 ng/mL (0.0-0.045)
--- NOTE | 2021-04-16 08:54 | RAD REPORT ---
EXAM DESCRIPTION: RAD - Chest Single View - 04/16/2021 8:25 am CLINICAL HISTORY: CHEST PAINpost fall COMPARISON: Portable March 2020 TECHNIQUE: AP portable chest image was obtained 04/16/2021 8:25 am . FINDINGS: No pulmonary contusion or acute lung parenchymal process. Interstitial pattern is similar to the comparison. Heart and vasculature are normal. No measurable pleural effusion and no pneumothor ax. No acute aortic findings suspected. No acute bone finding identified. Concerns for rib fracture can be further addressed with dedicated i maging as warranted. Shoulder joints are unremarkable. IMPRESSION: No acute cardiopulmonary process. No significant change from comparison.
--- NOTE | 2021-04-16 09:18 | EDPHYS ---
Physician Documentation [facility] Name: Gaurav Hector Age: 76 yrs Sex: Male : 1945 Arrival Date: 04/16/2021 Time: 07:34 Bed 6 Private MD: ED Physician Jefferson Leon HPI: 04/16 09:12 This 76 yrs old Male presents to ER via EMS with complaints of Fall Injury. ma2 09:12 Onset: The symptoms/episode began/occurred suddenly, 1 week(s) ago. Severity of ma2 symptoms: At their worst the symptoms were mild, in the emergency department the symptoms are unchanged. The patient has not experienced similar symptoms in the past. Patient has Parkinson disease, on carbidopa, has been having palpitation for 1 week, today has been feeling lightheaded, and had a syncope while in the bathroom fell hit the back of the head, when EMS arrived he was tachycardic to 170 bpm, systolic blood pressure was 70s. EMS gave him diltiazem 25 IV and a bolus of NS. And he converted to sinus with rate of 70 bpm. At this time patient has pain at the back of the head and lightheadedness. However he feels better. He has been having UTI and benign prostate hypertrophy he had a Carr cath that was placed few weeks ago. Follow-up with Dr. Hyman urologist. He is on ciprofloxacin. He does not have UTI symptoms at this time.. Historical: - Allergies: 08:08 Sulfa (Sulfonamide Antibiotics); es2 - PMHx: 08:08 Hypothyroidism; Parkinsons; es2 - PSHx: 08:08 Adenoid excision; Tonsillectomy; es2 - Immunization history: Last tetanus immunization: > 10 years ago. - Social history:: Patient/guardian denies using alcohol, street drugs, The patient lives with family, Smoking status: . - Family history:: not pertinent. ROS: 09:12 Constitutional: Negative for fever, chills, and weight loss. ma2 09:12 All other systems are negative. Exam: 09:12 Constitutional: This is a well developed, well nourished patient who is awake, alert, ma2 and in no acute distress. Head/Face: Normocephalic, atraumatic. Eyes: Pupils equal round and reactive to light, extra-ocular motions intact. Lids and lashes normal. Conjunctiva and sclera are non-icteric and not injected. Cornea within normal limits. Periorbital areas with no swelling, redness, or edema. ENT: Nares patent. No nasal discharge, no septal abnormalities noted. Tympanic membranes are normal and external auditory canals are clear. Oropharynx with no redness, swelling, or masses, exudates, or evidence of obstruction, uvula midline. Mucous membranes moist. Neck: Trachea midline, no thyromegaly or masses palpated, and no cervical lymphadenopathy. Supple, full range of motion without nuchal rigidity, or vertebral point tenderness. No Meningismus. Chest/axilla: Normal chest wall appearance and motion. Nontender with no deformity. No lesions are appreciated. Cardiovascular: Regular rate and rhythm with a normal S1 and S2. No gallops, murmurs, or rubs. Normal PMI, no JVD. No pulse deficits. Respiratory: Lungs have equal breath sounds bilaterally, clear to auscultation and percussion. No rales, rhonchi or wheezes noted. No increased work of breathing, no retractions or nasal flaring. Abdomen/GI: Soft, non-tender, with normal bowel sounds. No distension or tympany. No guarding or rebound. No evidence of tenderness throughout. Skin: Warm, dry with normal turgor. Normal color with no rashes, no lesions, and no evidence of cellulitis. MS/ Extremity: Pulses equal, no cyanosis. Neurovascular intact. Full, normal range of motion. Neuro: Awake and alert, GCS 15, oriented to person, place, time, and situation. Cranial nerves II-XII grossly intact. Motor strength 5/5 in all extremities. Sensory grossly intact. Cerebellar exam normal. Normal gait. Vital Signs: 07:50 BP 116 / 73; Resp 24; Temp 97; Pulse Ox 92% on R/A; es2 08:22 BP 120 / 88; Pulse 83; Resp 26; Pulse Ox 99% ; es2 08:53 BP 129 / 83; Pulse 78; Resp 21; Pulse Ox 100% on R/A; es2 10:04 BP 142 / 87; Pulse 63; Resp 18; Pulse Ox 100% on R/A; es2 11:15 BP 140 / 97; Pulse 67; Resp 26; Pulse Ox 100% on R/A; es2 Ambrocio Coma Score: 07:50 Eye Response: spontaneous(4). Verbal Response: oriented(5). Motor Response: obeys es2 commands(6). Total: 15. Trauma Score (Adult): 07:50 Eye Response: spontaneous(1); Verbal Response: oriented(1); Motor Response: obeys es2 commands(2); Systolic BP: > 89 mm Hg(4); Respiratory Rate: 10 to 29 per min(4); Ambrocio Score: 15; Trauma Score: 12 MDM: 07:38 Patient medically screened. ma2 09:12 Differential diagnosis: contusion, fracture, sprain, strain. Data reviewed: vital ma2 signs, nurses notes. Data interpreted: quality assurance monitor body: rate is 70 beats/min, rhythm is normal sinus rhythm, Pulse oximetry: on. Counseling: I had a detailed discussion with the patient and/or guardian regarding: the historical points, exam findings, and any diagnostic results supporting the discharge/admit diagnosis, the presence of at least one elevated blood pressure reading (>120/80) during this emergency department visit. Counseling: I had a detailed discussion with the patient and/or guardian regarding: lab results, radiology results, the need for further work-up and treatment in the hospital. Response to treatment: the patient's symptoms have markedly improved after treatment. 04/16 07:39 Order name: Basic Metabolic Panel; Complete Time: 08:54 04/16 07:39 Order name: CBC with Diff; Complete Time: 08:54 04/16 07:39 Order name: CPK; Complete Time: 08:54 04/16 07:39 Order name: Ckmb; Complete Time: 08:54 04/16 07:39 Order name: Hepatic Function; Complete Time: 08:54 04/16 07:39 Order name: Lipase; Complete Time: 08:54 04/16 07:39 Order name: Magnesium; Complete Time: 08:54 04/16 07:39 Order name: Protime (+inr); Complete Time: 08:54 04/16 07:39 Order name: Ptt, Activated; Complete Time: 08:54 04/16 07:39 Order name: Troponin (emerg Dept Use Only); Complete Time: 08:54 ma2 04/16 07:41 Order name: NT PRO-BNP; Complete Time: 08:54 ma2 04/16 08:19 Order name: Urine Dipstick-Ancillary; Complete Time: 08:54 EDMS 04/16 10:32 Order name: SARS-COV-2 RT PCR EDMS 04/16 07:39 Order name: EKG; Complete Time: 07:39 ma2 04/16 07:39 Order name: Cardiac monitoring; Complete Time: 07:56 ma2 04/16 07:39 Order name: EKG - Nurse/Tech; Complete Time: 07:53 ma2 04/16 07:39 Order name: IV Saline Lock; Complete Time: 07:56 ma2 04/16 07:39 Order name: Labs collected and sent; Complete Time: 07:53 ma2 04/16 07:39 Order name: NPO; Complete Time: 07:56 ma2 04/16 07:39 Order name: O2 Per Protocol; Complete Time: 07:56 ma2 04/16 07:39 Order name: O2 Sat Monitoring; Complete Time: 07:56 ma2 04/16 07:39 Order name: Urine Dipstick-Ancillary (obtain specimen); Complete Time: 08:19 ma2 04/16 07:41 Order name: CT Head C Spine; Complete Time: 08:54 ma2 04/16 07:41 Order name: XRAY Chest (1 view); Complete Time: 08:54 ma2 04/16 15:31 Order name: Protime (+INR) EDKS 04/16 15:42 Order name: Thyroid Stimulating Hormone EDKS Administered Medications: 08:11 Drug: NS 0.9% 1000 ml Route: IV; Rate: 1 bolus; Site: right antecubital; es2 09:24 Follow up: Response: No adverse reaction; IV Status: Completed infusion es2 Disposition Summary: 04/16/21 09:17 Hospitalization Ordered Hospitalization Status: Inpatient Admission ma2 Provider: Juliano Dueñas Condition: Stable ma2 Problem: new ma2 Symptoms: are unchanged ma2 Bed/Room Type: Standard nc2 Location: Telemetry/MedSurg (Inpatient)(04/16/21 16:20) sv Room Assignment: [facility](04/16/21 16:20) sv Diagnosis - Paroxysmal atrial fibrillation ma2 - Syncope Near ma2 Forms: - Medication Reconciliation Form ma2 - SBAR form ma2 Signatures: Dispatcher [employer] EDMS Tierra Russell, RN RN sv Edin Gandhi RN RN [email or web address] Jefferson Leon MD MD ma2 Barb Vaz Elizabeth, RN RN es2 Corrections: (The following items were deleted from the chart) 09:34 09:11 CORONAVIRUS+MR.LAB.BRZ ordered. EDMS EDMS 14:15 09:17 Telemetry/MedSurg (Inpatient) ma2 sv 14:15 09:17 ma2 sv 14:30 14:15 [facility] ER HOLD sv eb 14:30 14:15 ERHOLD- sv eb 14:35 14:30 Telemetry/MedSurg (Inpatient) eb ja1 14:35 14:30 211 eb ja1 14:35 14:35 ja1 ja1 16:20 14:35 BR ER HOLD ja1 sv 16:20 14:35 ERHOLD- ja1 sv
--- NOTE | 2021-04-16 09:18 | ER ---
Nurse's Notes [facility] Name: Gaurav Hector Age: 76 yrs Sex: Male : 1945 Arrival Date: 04/16/2021 Time: 07:34 Bed 6 Private MD: Diagnosis: Paroxysmal atrial fibrillation;Syncope Near Presentation: 04/16 07:57 Chief complaint: EMS states: Pt got dizzy and fell. C/o pain to back of head. Weak \T\ es2 dizzy. Care prior to arrival: Medication(s) given: Normal saline infusion, 1000 mL, Cardizem 10. Mechanism of Injury: Fall. Trauma event details: Injury occurred: April 16, 2021. 07:57 Acuity: GO 2 es2 07:57 Method Of Arrival: EMS: [facility] es2 08:07 Coronavirus screen: Vaccine status: Patient reports receiving the 2nd dose of the covid es2 vaccine. Ebola Screen: Patient negative for fever greater than or equal to 101.5 degrees Fahrenheit, and additional compatible Ebola Virus Disease symptoms Patient denies exposure to infectious person. Patient denies travel to an Ebola-affected area in the 21 days before illness onset. No symptoms or risks identified at this time. Initial Sepsis Screen: Does the patient meet any 2 criteria? Does the patient have a suspected source of infection?. Risk Assessment: Do you want to hurt yourself or someone else? Patient reports no desire to harm self or others. Onset of symptoms was April 16, 2021. Trauma Activation: Physician: ED Physician; Name: Carolyn; Notified At: ; Arrived At: Physician: General Surgeon; Name: ; Notified At: ; Arrived At: Physician: Radiology; Name: ; Notified At: ; Arrived At: Physician: Respiratory; Name: ; Notified At: ; Arrived At: Physician: Lab; Name: ; Notified At: ; Arrived At: Historical: - Allergies: 08:08 Sulfa (Sulfonamide Antibiotics); es2 - PMHx: 08:08 Hypothyroidism; Parkinsons; es2 - PSHx: 08:08 Adenoid excision; Tonsillectomy; es2 - Immunization history: Last tetanus immunization: > 10 years ago. - Social history:: Patient/guardian denies using alcohol, street drugs, The patient lives with family, Smoking status: . - Family history:: not pertinent. Screenin:05 Abuse screen: Denies threats or abuse. Denies injuries from another. Tuberculosis es2 screening: No symptoms or risk factors identified. 08:08 Nutritional screening: No deficits noted. Fall Risk Fall in past 12 months (25 points). es2 IV access (20 points). Mental Status- Oriented to own ability (0 pts). Primary Survey: 08:01 NO uncontrolled hemorrhage observed. Breathing/Chest: Respiratory pattern: regular. es2 Circulation: Pulses: palpable right radial artery, right posterior tibial artery, left radial artery and left posterior tibial artery. Disability Alert. Exposure/Environment: All clothing and personal items were removed. Forensic evidence collection is not deemed to be indicated at this time. Items placed in patient belonging bag. Reassessment Breathing/Chest Respiratory effort Spontaneous Circulation Pulses Palpable Disability Alert. Assessment: 07:59 General: Appears distressed, ill, slender, Behavior is appropriate for age, quiet. es2 Pain: Complains of pain in scalp. Neuro: Level of Consciousness is awake, alert, obeys commands, Oriented to person, place, time, situation, Appropriate for age. EENT: No signs and/or symptoms were reported regarding the EENT system. Cardiovascular: Capillary refill < 3 seconds. Respiratory: Airway is patent Respiratory effort is even, labored, Respiratory pattern is regular, symmetrical. GI: No signs and/or symptoms were reported involving the gastrointestinal system. : Carr in place. 08:58 Reassessment: MD at bedside. es2 Vital Signs: 07:50 BP 116 / 73; Resp 24; Temp 97; Pulse Ox 92% on R/A; es2 08:22 BP 120 / 88; Pulse 83; Resp 26; Pulse Ox 99% ; es2 08:53 BP 129 / 83; Pulse 78; Resp 21; Pulse Ox 100% on R/A; es2 10:04 BP 142 / 87; Pulse 63; Resp 18; Pulse Ox 100% on R/A; es2 11:15 BP 140 / 97; Pulse 67; Resp 26; Pulse Ox 100% on R/A; es2 Ambrocio Coma Score: 07:50 Eye Response: spontaneous(4). Verbal Response: oriented(5). Motor Response: obeys es2 commands(6). Total: 15. Trauma Score (Adult): 07:50 Eye Response: spontaneous(1); Verbal Response: oriented(1); Motor Response: obeys es2 commands(2); Systolic BP: > 89 mm Hg(4); Respiratory Rate: 10 to 29 per min(4); Touchet Score: 15; Trauma Score: 12 ED Course: 07:34 Patient arrived in ED. ds1 07:37 EKG done, by ED staff, reviewed by Jefferson Leon MD. dh3 07:38 Jefferson Leon MD is Attending Physician. ma2 07:44 Barb Ordonez, LENA is Primary Nurse. es2 07:46 EKG done, by ED staff, reviewed by Jefferson Leon MD. dh3 07:53 Basic Metabolic Panel Sent. es2 07:53 CBC with Diff Sent. es2 07:53 CPK Sent. es2 07:53 Ckmb Sent. es2 07:53 Hepatic Function Sent. es2 07:53 Lipase Sent. es2 07:53 Ptt, Activated Sent. es2 07:53 Troponin (emerg Dept Use Only) Sent. es2 07:53 Protime (+inr) Sent. es2 07:53 Magnesium Sent. es2 07:56 CT Head C Spine In Process Unspecified. EDMS 07:59 Triage completed. es2 08:05 Maintain EMS IV. Dressing intact. Site clean \T\ dry. Gauge \T\ site: 20 R AC. IV is intact.es 2 08:05 Patient has correct armband on for positive identification. Placed in gown. Bed in low es2 position. Call light in reach. Side rails up X2. 08:08 Arm band placed on. EKG completed in triage. Results shown to MD. es2 08:09 Patient maintains SpO2 saturation greater than 95% on room air. es2 08:10 Thermoregulation: warm blanket given to patient. es2 08:24 Warm blanket given. es2 08:25 XRAY Chest (1 view) In Process Unspecified. EDMS 09:17 Juliano Dueñas is Hospitalizing Provider. ma2 Administered Medications: 08:11 Drug: NS 0.9% 1000 ml Route: IV; Rate: 1 bolus; Site: right antecubital; es2 09:24 Follow up: Response: No adverse reaction; IV Status: Completed infusion es2 Intake: 07:50 IV: 1000ml; Total: 1000ml. es2 Output: 07:50 Urine: 400ml (Carr); Total: 400ml. es2 08:56 Urine: 400ml (Carr); Total: 800ml. es2 Outcome: 09:17 Decision to Hospitalize by Provider. ma2 09:42 Patient's length of stay in the Emergency Department was greater than 2 hours. Pt to be es2 admitted.Patient's length of stay extended due to 16:59 Patient left the ED. es2 Signatures: Dispatcher [employer] EDMS Kiara Hu 1 Mary Ramírez 3 Jefferson Leon MD MD ma2 Barb Ordonez RN RN es2 Corrections: (The following items were deleted from the chart) 09:34 09:14 CORONAVIRUS+ drawn and sent. es2 EDNH
[2021-04-16 13:00] VITALS: BMI 17.2
[2021-04-16] MEDS ORDERED: ACETAMINOPHEN 500 MG TAB PO PRN (14:15)
[2021-04-16] MEDS: CARBIDOPA/LEVODOPA 25/100 TAB PO SCH ×3 (14:15→21:45)
--- NOTE | 2021-04-16 15:10 | P.HP ---
Certification for Inpatient Patient admitted to: Inpatient With expected LOS: >2 Midnights Practitioner: I am a practitioner with admitting privileges, knowledge of patient current condition, hospital course, and medical plan of care. Services: Services provided to patient in accordance with Admission requirements found in Title 42 Section 412.3 of the Code of Federal Regulations Patient History Date of Service: 04/16/21 Reason for admission: Fall, atrial fibrillation History of Present Illness: 76-year-old gentleman with a history of Parkinson's disease. BPH, recently on an tibiotics for UTI fell at home while trying to use the bathroom during the night. called EMS. EMS found him in atrial fibrillation with heart rate up to 170 and systolic blood pressure of 70. He was given IV Cardizem. EKG done in the emergency department demonstrated atrial fibrillation with a ventricular rate of 135. Patient was given normal saline in the ED. He spontaneously converted to sinus rhythm. He reports episodic palpitations over the past 1 week. Patient seen with a heart rate in the 60s, normotensive. Labs in the ED unremarkable. Initial troponin negative. Chest x-ray showed no acute disease. Patient reports hitting the back of his head on the floor when he fell. Head CT and cervical CT showed no acute findings. Patient admitted for further management. Allergies No Known Allergies Allergy (Unverified 04/16/21 14:09) Home Medications: Amantadine HCl [Amantadine] 100 mg PO BID 04/16/21 Carbidopa/Levodopa [Carbidopa-Levodopa 25-100 Tab] 25 - 100 mg PO 04/16/21 Ciprofloxacin HCl 250 mg PO Q12HR 04/16/21 Levothyroxine Sodium [Levothyroxine] 175 mcg PO DAILY 04/16/21 Linaclotide [Linzess] 145 mcg PO DAILY 04/16/21 Rasagiline Mesylate 1 mg PO DAILY 04/16/21 Tamsulosin [Flomax*] 0.4 mg PO DAILY 04/16/21 - Past Medical/Surgical History Has patient received pneumonia vaccine in the past: Yes -: Parkinson's disease -: BPH -: Hypothyroidism -: None - Family History Mother -: Heart disease - Social History Smoking Status: Never smoker Alcohol use: Yes CD- Drugs: No Place of Residence: Home Review of Systems Other: Except as documented, all other systems reviewed and negative. Physical Examination - Vital Signs Blood Pressure: 138/85 Pulse: 65 Respirations: 19 Pulse Ox (%): 100 - Physical Exam General: Alert, In no apparent distress, Oriented x3, Cachectic HEENT: Normocephalic, Mucous membr. moist/pink Neck: Supple, JVD not distended Respiratory: Clear to auscultation bilaterally, Normal air movement Cardiovascular: No edema, Regular rate/rhythm, Normal S1 S2, No murmurs Gastrointestinal: Normal bowel sounds, Soft and benign, Non-distended, No tenderness Musculoskeletal: No swelling, No tenderness Integumentary: No rashes, Erythema (Mild erythema bilateral legs) Neurological: Normal speech, Normal strength at 5/5 x4 extr, Other (Resting tremors) Lymphatics: No axilla or inguinal lymphadenopathy Urinary: Carr catheter - Studies Laboratory Data (last 24 hrs) 04/16/21 07:51: PT 11.7, INR 1.02, APTT 31.4 04/16/21 07:51: WBC 6.40, Hgb 12.8 L, Hct 39.5 L, Plt Count 250 04/16/21 07:51: Sodium 143, Potassium 3.7, BUN 25 H, Creatinine 0.97, Glucose 95, Magnesium 2.4, Total Bilirubin 0.4, AST 16, ALT 14, Alkaline Phosphatase 84, Lipase 91 Assessment and Plan - Problems (Diagnosis) (1) Paroxysmal atrial fibrillation Current Visit: Yes Status: Acute (2) BPH (benign prostatic hyperplasia) Current Visit: Yes Status: Acute (3) Severe protein-calorie malnutrition Current Visit: Yes Status: Acute - Plan Admit to the medical floor. Start low dose metoprolol 12.5 mg b.i.d. as his BP and heart rate up will tolerate. Anticoagulation with Eliquis. Obtain echocardiogram Trend troponin Check TSH. Continue home dose Synthroid for now. Cardiology Consult. Patient almost completed antibiotics for UTI Repeat UA. Maintain Carr catheter. Continue home dose Parkinson's medications. - Advance Directives Does patient have a Living Will: No Does patient have a Durable POA for Healthcare: No
[2021-04-16 15:30] LABS: Protime INR 1.07
[2021-04-16] MEDS: METOPROLOL TAR 25 MG TAB PO SCH (18:03)
[2021-04-16] MEDS: APIXABAN 5 MG TABLET PO SCH (21:45)
[2021-04-17 04:34] LABS: Absolute Lymphocytes (CBC) 0.8 K/uL (0.7-4.9); Basophils % 0.4 % (0-1.3); Hematocrit 34.3 % (39.6-49.0); Lymphocytes % 14.7 % (15.3-44.8); MPV 8.1 fL (7.6-11.3); RBC Red Blood Cell Count 3.79 M/uL (4.33-5.43)
[2021-04-17 05:12] LABS: BUN Blood Urea Nitrogen 23 mg/dL (7-18); Bicarbonate 31 mmol/L (21-32); Glucose Level 99 mg/dL (74-106); HDL Cholesterol 59 mg/dL (40-60); LDL Cholesterol, Calculated 66 (<130); Magnesium 2.3 mg/dL (1.8-2.4); Phosphorus 3.2 mg/dL (2.5-4.9); Sodium Level 144 mmol/L (136-145); Troponin I 0.47 ng/mL (0.0-0.045)
[2021-04-17] MEDS: METOPROLOL TAR 25 MG TAB PO SCH ×2 (06:09→18:00)
[2021-04-17] MEDS: CARBIDOPA/LEVODOPA 25/100 TAB PO SCH ×5 (11:00→20:34)
[2021-04-17] MEDS: APIXABAN 5 MG TABLET PO SCH ×2 (11:30→20:34)
--- NOTE | 2021-04-17 14:18 | P.PN ---
Subjective Date of Service: 04/17/21 Chief Complaint: Fall, atrial fibrillation Patient has no complain today. No event overnight. Physical Examination - Vital Signs Temperature: 98.3 F Blood Pressure: 118/72 Pulse: 73 Respirations: 16 Pulse Ox (%): 100 - Physical Exam General: Alert, In no apparent distress, Oriented x3 HEENT: Mucous membr. moist/pink Neck: JVD not distended Respiratory: Clear to auscultation bilaterally, Normal air movement Cardiovascular: No edema, Normal pulses, Regular rate/rhythm, Normal S1 S2 Gastrointestinal: Soft and benign, Non-distended, No tenderness Musculoskeletal: No swelling Integumentary: No rashes Neurological: Normal strength at 5/5 x4 extr Assessment And Plan - Current Problems (Diagnosis) (1) Paroxysmal atrial fibrillation Current Visit: Yes Status: Acute (2) BPH (benign prostatic hyperplasia) Current Visit: Yes Status: Acute (3) Severe protein-calorie malnutrition Current Visit: Yes Status: Acute - Plan Admit to the medical floor. Continue low dose metoprolol 12.5 mg b.i.d. as his BP and heart rate up will tolerate. Troponin slightly elevated but trended flat. Likely secondary to demand ischemia Patient anticoagulate with Eliquis. Echocardiogram result is pending. TSH within normal limit. Continue home dose Synthroid. Cardiology Consult. Patient almost completed antibiotics for UTI UA: No evidence of UTI. Maintain Carr catheter. Continue home dose Parkinson's medications.
--- NOTE | 2021-04-17 16:26 | ECHO ---
HEIGHT: 5 ft 10 in WEIGHT: 120 lb 0 oz DATE OF STUDY: 04/17/[address]: yvette wheatley 2-DIMENSIONAL: YES M.MODE: YES DOPPLER: YES COLOR FLOW: YES TDS: NO PORTABLE: NO DEFINITY: NO BUBBLE STUDY: NO DIAGNOSIS: NEW ONSET ATRIAL FIBRILLATION CARDIAC HISTORY: CATHERIZATION: SURGERY: PROSTHETIC VALVE: PACEMAKER: MEASUREMENTS (cm) DIASTOLIC (NORMALS) SYSTOLIC (NORMALS) IVSd 1.0 (0.6-1.2) LA Diam 3.2 (1.9-4.0) LVEF 62% LVIDd 4.6 (3.5-5.7) LVIDs 3.1 (2.0-3.5) %FS 33% LVPWd 1.0 (0.6-1.2) Ao Diam 3.6 (2.0-3.7) 2 DIMENSIONAL ASSESSMENT: RIGHT ATRIUM: NORMAL LEFT ATRIUM: NORMAL RIGHT VENTRICLE: NORMAL LEFT VENTRICLE: NORMAL TRICUSPID VALVE: MITRAL VALVE: PULMONIC VALVE: NORMAL AORTIC VALVE: PERICARDIAL EFFUSION: NONE AORTIC ROOT: NORMAL LEFT VENTRICULAR WALL MOTION: NORMAL DOPPLER/COLOR FLOW: SEE BELOW. COMMENTS: NORMAL LEFT VENTRICULAR EJECTION FRACTION 55-60%. MILD MITRAL, TRICUSPID AND AORTIC REGURGITATION. TECHNOLOGIST: Jere COCHRAN
[2021-04-17] MEDS: CIPROFLOXACIN HCL 250 MG TAB PO SCH (20:33)
[2021-04-17] MEDS: AMANTADINE 100 MG CAP PO SCH (21:00)
[2021-04-18 05:18] VITALS: O2SAT 96
[2021-04-18] MEDS: METOPROLOL TAR 25 MG TAB PO SCH (05:28)
[2021-04-18] MEDS ORDERED: LEVOTHYROXINE SOD 0.1 MG TAB PO SCH ×2 (06:00→06:30)
[2021-04-18] MEDS ORDERED: LEVOTHYROXINE SOD 0.075 MG TAB PO SCH (06:30)
[2021-04-18] MEDS: AMANTADINE 100 MG CAP PO SCH (08:39)
[2021-04-18] MEDS: APIXABAN 5 MG TABLET PO SCH (08:40)
[2021-04-18] MEDS: CARBIDOPA/LEVODOPA 25/100 TAB PO SCH (08:40)
[2021-04-18] MEDS: CIPROFLOXACIN HCL 250 MG TAB PO SCH (08:41)
[2021-04-18 08:48] VITALS: BP 134/83; TEMP 98.7
[2021-04-18] MEDS ORDERED: RASAGILINE MESYLATE 1 MG PO SCH ×2 (09:00→21:00)
[2021-04-18] MEDS ORDERED: TAMSULOSIN 0.4 MG SR CAP PO SCH (09:00)
--- NOTE | 2021-04-18 15:35 | P.DS ---
Admission Date: 04/16/21 Discharge Date: 04/18/21 Disposition: ROUTINE DISCHARGE Discharge Condition: GOOD Reason for Admission: Fall, atrial fibrillation Consultations: Cardiology -Dr. Warner Procedures: CXR (04/16): IMPRESSION: No acute cardiopulmonary process. No significant change from comparison. CT Head/ C-spine (04/16): IMPRESSION: No hemorrhage, edema or other acute intracranial finding identifiable. Mild to moderate atrophy present with ventricles in proportion. This is stable to mildly progressive from 2013. Chronic ischemic pattern is not clearly d ifferent. Cervical spine degenerative changes are present as detailed. No acute findings identifiable. Echo (04/17): normal LVEF: 55-60%. mild mitral,tricuspid, and aortic reg urgitation Problem list Paroxysmal atrial fibrillation Benign prostatic hyperplasia Severe protein calorie malnutrition, acute Brief History of Present Illness: 76-year-old gentleman with a history of Parkinson's disease. BPH, recently on antibiotics for UTI fell at home while trying to use the bathroom during the night. called EMS. EMS found him in atrial fibrillation with heart rate up to 170 and systolic blood pressure of 70. He was given IV Cardizem. EKG done in the emergency department demonstrated atrial fibrillation with a ventricular rate of 135. Patient was given normal saline in the ED. He spontaneously converted to sinus rhythm. He reports episodic palpitations over the past 1 week. Patient seen with a heart rate in the 60s, normotensive. Labs in the ED unremarkable. Initial troponin negative. Chest x-ray showed no acute disease. Patient reports hitting the back of his head on the floor when he fell. Head CT and cervical CT showed no acute findings. Patient admitted for further management. Hospital Course: Patient was treated with metoprolol and converted back to sinus rhythm. Cardiology was consulted, recommended slight increase in the dosage of metoprolol as patient was having a few seconds of SVT noted on telemetry. Patient was monitored overnight with no further events. The following morning he was feeling significantly better, denied any palpitations, was asking to be discharged home. Patient was deemed stable for discharge home. Discharged with Eliquis and metoprolol. Vital Signs/Physical Exam: Temp Pulse Resp BP Pulse Ox 98.7 F 63 16 134/83 98 04/18/21 08:00 04/18/21 08:00 04/18/21 08:00 04/18/21 08:00 04/18/21 08:00 General: Alert, In no apparent distress HEENT: Sclerae nonicteric Neck: No LAD Respiratory: Clear to auscultation bilaterally, Normal air movement Cardiovascular: No edema, Regular rate/rhythm Gastrointestinal: Soft and benign, Non-distended, No tenderness Musculoskeletal: No tenderness Integumentary: No rashes Neurological: Normal speech, Normal affect Laboratory Data at Discharge: WBC 5.50 K/uL (4.3-10.9) D 04/17/21 04:18 Hgb 11.3 g/dL (13.6-17.9) L 04/17/21 04:18 Hct 34.3 % (39.6-49.0) L 04/17/21 04:18 Plt Count 201 K/uL (152-406) 04/17/21 04:18 PT 12.3 SECONDS (9.5-12.5) 04/16/21 15:01 INR 1.07 04/16/21 15:01 APTT 31.4 SECONDS (24.3-36.9) 04/16/21 07:51 Sodium 144 mmol/L (136-145) 04/17/21 04:18 Potassium 4.0 mmol/L (3.5-5.1) 04/17/21 04:18 BUN 23 mg/dL (7-18) H 04/17/21 04:18 Creatinine 0.81 mg/dL (0.55-1.3) 04/17/21 04:18 Glucose 99 mg/dL (74-106) 04/17/21 04:18 Phosphorus 3.2 mg/dL (2.5-4.9) 04/17/21 04:18 Magnesium 2.3 mg/dL (1.8-2.4) 04/17/21 04:18 Total Bilirubin 0.4 mg/dL (0.2-1.0) 04/16/21 07:51 AST 16 U/L (15-37) 04/16/21 07:51 ALT 14 U/L (12-78) 04/16/21 07:51 Alkaline Phosphatase 84 U/L (45-117) 04/16/21 07:51 Troponin I 0.37 ng/mL (0.0-0.045) H 04/17/21 13:28 Triglycerides 38 mg/dL (<150) 04/17/21 04:18 Cholesterol 133 mg/dL (<200) 04/17/21 04:18 HDL Cholesterol 59 mg/dL (40-60) 04/17/21 04:18 Cholesterol/HDL Ratio 2.25 04/17/21 04:18 Lipase 91 U/L (73-393) 04/16/21 07:51 Home Medications: Amantadine HCl [Amantadine] 100 mg PO BID 04/16/21 Carbidopa/Levodopa [Carbidopa-Levodopa 25-100 Tab] 25 - 100 mg PO 04/16/21 Ciprofloxacin HCl 250 mg PO Q12HR 04/16/21 Levothyroxine Sodium [Levothyroxine] 175 mcg PO DAILY 04/16/21 Linaclotide [Linzess] 145 mcg PO DAILY 04/16/21 Rasagiline Mesylate 1 mg PO DAILY 04/16/21 Tamsulosin [Flomax*] 0.4 mg PO DAILY 04/16/21 Apixaban [Eliquis] 5 mg PO BID 30 Days #60 tablet 04/18/21 Metoprolol Tartrate [Lopressor*] 25 mg PO BID 30 Days #60 tab 04/18/21 New Medications: Apixaban [Eliquis] 5 mg PO BID 30 Days #60 tablet Metoprolol Tartrate [Lopressor*] 25 mg PO BID 30 Days #60 tab Physician Discharge Instructions: You were found to have rapid heart rate - known as atrial fibrillation. This improved /resolved with medication (metoprolol). Cardiology, Dr. Warner was consulted and recommended no further evaluation in the hospital. You were deemed stable for discharge home with prescriptions for metoprolol and eliquis (blood thinner). You are prescribed 1 month supply. Please follow up with your PCP in the next few days. You will need refills for these prescriptions as well. Metoprolol can lower your blood pressure and make people lightheaded when getting up / moving too fast. Please get up slowly for the next week or so until you adjust to the medications. Your prescriptions were sent with you on paper to fill at the pharmacy of your choice. Diet: AHA Activity: Fall precautions (use walker) Followup: Unknown,U [Primary Care Provider] - Time spent managing pt's care (in minutes): 45
--- NOTE | 2021-04-19 12:07 | CON ---
Date of Consultation: 04/17/2021 Reason For Consultation: Admitted with new onset atrial fibrillation, syncope, and elevated troponin on 04/16/2021. I saw the patient on 04/17/2021. History Of Present Illness: Mr. Lopez is a 76-year-old with history of hypothyroidism and parkinso nism. He came in with syncope, elevated troponin, new onset atrial fibrillation. He is already in s inus rhythm after beta-blockers and Eliquis. He also takes Sinemet. He had elevated troponin. Olayinka ed any chest pain, nausea, vomiting, diaphoresis, PND, orthopnea, pedal edema. He has palpitations a nd syncope. Past Medical History: As stated above. Allergies: INCLUDE SULFA. Review of Systems: Negative. Social History: Negative. Family History: Noncontributory. Medications: Listed earlier. Physical Examination: Vital Signs: Stable, sinus rhythm. HEENT: Negative. Neck: Supple with no bruit. Chest: Clear to auscultation and percussion. Cardiac: Revealed a regular rhythm and rate. No murmurs, gallops, or rubs. Abdomen: Benign. Extremities: Revealed no clubbing, cyanosis, or edema. Diagnostic Data: Included a troponin of 0.47. Initial EKG showed atrial fibrillation, the second on e is normal rhythm. Chest x-ray is negative. Echocardiogram which was done revealed normal left atr ial size, no thrombus, normal LV size and function, no wall motion abnormalities, and no effusion. Impression And Plan: Atrial fibrillation causing syncope and elevated troponin. He is 76, has hypot hyroidism and parkinsonism. We will consider a Lexiscan sometime down the road, but for now, I think he can go home on metoprolol and Eliquis. Continue his Sinemet. Continue his thyroid medicine. He can increase his beta-blockers at home on an as-needed basis if he goes into atrial fibrillation. I f this reoccurs, we will consider Betapace down the road. He can go home and I will see him in the o ffice in 2 weeks. TAURUS/ALVAREZL Voice ID: [id number] Report ID: [id number]
--- NOTE | 2021-04-20 13:14 | PN ---
Date of Progress Note: 04/18/2021 Mr. Lopez had come in with syncope, elevated troponin, thought secondary to new onset of atrial fib rillation. He is now on metoprolol and Eliquis and is in normal rhythm. He can go home whenever it is okay with Dr. Beltre. Echocardiogram which was done showed no wall motion abnormalities. No throm bus. Normal left ventricular size and function and normal left atrial size. We will see him in the office as an outpatient. Again, discharge him on his home medicine plus beta-blockers and Eliquis. TAURUS/JUWAN Voice ID: [id number] Report ID: [id number]
== END 2021-04-18 10:00 | disposition home or self-care (01) | DRG 308 ==
LOC: ER 07:33 → ERHOLD 11:26 → 2ND 16:50
PROVIDERS: ADMIT Internal Medicine; ATTEND Internal Medicine
DX: I48.0 Paroxysmal atrial fibrillation (principal); E43 Unspecified severe protein-calorie malnutrition; Z68.1 Body mass index [BMI] 19.9 or less, adult; N40.0 Benign prostatic hyperplasia without lower urinary tract symptoms; G20 Parkinson's disease; I10 Essential (primary) hypertension; E03.9 Hypothyroidism, unspecified; Z20.822 Contact with and (suspected) exposure to COVID-19
CPT/HCPCS: 36415; 70450; 71045; 72125; 80048; 80061; 80076; 81003; 82550; 82553; 83690; 83735; 83880; 84100; 84443; 84484; 85025; 85610; 85730; 93005; 93306; 94760; 96360; 97116; 97161; 99284; J7030; U0003

== ENCOUNTER 2021-05-09 10:02 | Emergency (ER) | payer OTHER, MEDICARE ==
--- NOTE | 2021-05-09 11:13 | ER ---
Nurse's Notes [facility] Name: Gaurav Hector Age: 76 yrs Sex: Male : 1945 Arrival Date: 05/09/2021 Time: 10:04 Bed 7 Private MD: Diagnosis: Urinary Retention;UTI/ Urinary tract infection, site not specified Presentation: 05/09 10:14 Chief complaint: Patient states: Pt was seen at Urologist, Dr Hyman office, yesterday vg1 and had catheter removed. Pt refused to have another placed. Pt has had no urine output today and states last urine output was last night. Denies NV, states lower ABD pain, burn upon urination. Coronavirus screen: Vaccine status: Patient reports receiving the 2nd dose of the covid vaccine. Ebola Screen: Patient negative for fever greater than or equal to 101.5 degrees Fahrenheit, and additional compatible Ebola Virus Disease symptoms. Initial Sepsis Screen: Does the patient meet any 2 criteria? No. Patient's initial sepsis screen is negative. Does the patient have a suspected source of infection? No. Patient's initial sepsis screen is negative. Risk Assessment: Do you want to hurt yourself or someone else? Patient reports no desire to harm self or others. Onset of symptoms was May 09, 2021. 10:14 Method Of Arrival: Ambulatory vg1 10:14 Acuity: GO 3 vg1 Triage Assessment: 10:17 General: Appears in no apparent distress. uncomfortable, Behavior is calm, cooperative. vg1 Pain: Complains of pain in suprapubic area. Historical: - Allergies: 10:17 Sulfa (Sulfonamide Antibiotics); vg1 - Home Meds: 10:17 Carbidopa-Levodopa Oral [Active]; Amantadine Oral [Active]; Eliquis oral [Active]; vg1 - PMHx: 10:17 Hypothyroidism; Parkinsons; vg1 - PSHx: 10:17 Adenoid excision; Tonsillectomy; vg1 - Immunization history:: Adult Immunizations up to date, Client reports receiving the 2nd dose of the Covid vaccine. - Social history:: Smoking status: Patient denies any tobacco usage or history of. Screenin:24 Abuse screen: Denies threats or abuse. Nutritional screening: No deficits noted. ap3 Tuberculosis screening: No symptoms or risk factors identified. Fall Risk None identified. Assessment: 10:32 General: Appears uncomfortable, Behavior is cooperative. Pain: Complains of pain in ap3 suprapubic area. Neuro: Level of Consciousness is awake, alert, obeys commands. Cardiovascular: Patient's skin is warm and dry. Respiratory: Airway is patent. : Reports inability to void, since catheter was removed yesterday. 10:32 Reassessment: Nurse bladder scanned patient. Scan showed 999+ ml. ap3 Vital Signs: 10:14 BP 157 / 95; Pulse 87; Resp 18; Temp 98.3; Pulse Ox 100% ; Weight 54.43 kg; Height 5 vg1 ft. 10 in. (177.80 cm); Pain 9/10; 10:14 Body Mass Index 17.22 (54.43 kg, 177.80 cm) vg1 ED Course: 10:04 Patient arrived in ED. mr 10:17 Triage completed. vg1 10:17 Arm band placed on. vg1 10:23 Vidhi Fu, LENA is Primary Nurse. ap3 10:34 Patient has correct armband on for positive identification. Bed in low position. Call ap3 light in reach. Side rails up X2. Adult w/ patient. Pulse ox on. NIBP on. Door closed. Noise minimized. 10:36 Rob Gonzalez PA is PHCP. [facility] 10:36 Jefferson Leon MD is Attending Physician. [facility] 10:46 Carr cath inserted, using sterile technique, 16 Fr., by mt, balloon inflated, to ap3 gravity drainage, clamped. returned ilene urine. Patient tolerated well. clamped after 1000ml drained. 11:11 Atif Hyman MD is Referral Physician. [facility] 11:21 Urine Culture Sent. kj1 11:44 No provider procedures requiring assistance completed. Patient did not have IV access ap3 during this emergency room visit. Administered Medications: No medications were administered Outcome: 11:12 Discharge ordered by . [facility] 11:45 Discharged to home via wheelchair, with family. ap3 11:45 Condition: good 11:45 Discharge instructions given to patient, family, Instructed on discharge instructions, follow up and referral plans. medication usage, Demonstrated understanding of instructions, follow-up care, medications, Prescriptions given X 1. 11:45 Patient left the ED. ap3 Addendum: 05/14/2021 07:11 Addendum: Culture Results: Positive urine culture. No further action required. Bacteria e b sensitive to prescribed antibiotic. Signatures: Rob Gonzalez PA PA jmm Rivera, Mary mr Tank, Vidhi, RN RN ap3 Barb Vaz, Makayla kj1 Triny Vaca RN RN vg1
--- NOTE | 2021-05-09 11:13 | EDPHYS ---
Physician Documentation [facility] Name: Gaurav Hector Age: 76 yrs Sex: Male : 1945 Arrival Date: 05/09/2021 Time: 10:04 Bed 7 Private MD: ANDRÉS Physician Jefferson Leon HPI: 05/09 10:39 This 76 yrs old Male presents to ER via Ambulatory with complaints of Urinary jmm Problem. 10:39 The patient presents with urinary symptoms, retention. Onset: The symptoms/episode jmm began/occurred today. Modifying factors: The symptoms are alleviated by nothing, the symptoms are aggravated by nothing. Associated signs and symptoms: Pertinent positives: dysuria, Pertinent negatives: fever. This is a 76-year-old male with history of hypothyroidism, Parkinson's the presents emerged department with urinary retention beginning earlier today. Carr was removed yesterday in clinic and patient declined to have another Carr inserted. Patient also complains of burning sensation when urinating. Denies fever, vomiting.. Historical: - Allergies: 10:17 Sulfa (Sulfonamide Antibiotics); vg1 - Home Meds: 10:17 Carbidopa-Levodopa Oral [Active]; Amantadine Oral [Active]; Eliquis oral [Active]; vg1 - PMHx: 10:17 Hypothyroidism; Parkinsons; vg1 - PSHx: 10:17 Adenoid excision; Tonsillectomy; vg1 - Immunization history:: Adult Immunizations up to date, Client reports receiving the 2nd dose of the Covid vaccine. - Social history:: Smoking status: Patient denies any tobacco usage or history of. ROS: 10:39 Constitutional: Negative for fever, chills, and weight loss, Cardiovascular: Negative jmm for chest pain, palpitations, and edema, Respiratory: Negative for shortness of breath, cough, wheezing, and pleuritic chest pain. 10:39 : Positive for urinary symptoms. 10:39 All other systems are negative. Exam: 10:39 Constitutional: This is a well developed, well nourished patient who is awake, alert, jmm and in no acute distress. Head/Face: atraumatic. Eyes: EOMI, no conjunctival erythema appreciated ENT: Moist Mucus Membranes Neck: Trachea midline, Supple Chest/axilla: Normal chest wall appearance and motion. Cardiovascular: Regular rate and rhythm. No edema appreciated Respiratory: Normal respirations, no respiratory distress appreciated Abdomen/GI: Non distended, soft Back: Normal ROM Skin: General appearance color normal MS/ Extremity: Moves all extremities, no obvious deformities appreciated, no edema noted to the lower extremities 10:39 Neuro: Orientation: is normal, Motor: is normal. 10:39 Psych: Behavior/mood is pleasant, cooperative. Vital Signs: 10:14 BP 157 / 95; Pulse 87; Resp 18; Temp 98.3; Pulse Ox 100% ; Weight 54.43 kg; Height 5 vg1 ft. 10 in. (177.80 cm); Pain 9/10; 10:14 Body Mass Index 17.22 (54.43 kg, 177.80 cm) vg1 MDM: 10:39 Patient medically screened. [facility] 11:11 Data reviewed: vital signs, nurses notes. Counseling: I had a detailed discussion with [facility] the patient and/or guardian regarding: the historical points, exam findings, and any diagnostic results supporting the discharge/admit diagnosis, the need for outpatient follow up, to return to the emergency department if symptoms worsen or persist or if there are any questions or concerns that arise at home. ED course: UA consistent with infection. Will treat with oral antibiotics. Patient otherwise given strict return precautions. Patient understood and agrees with plan of care. 05/09 11:04 Order name: Urine Culture [facility] 05/09 10:39 Order name: Carr; Complete Time: 10:46 [facility] 05/09 11:04 Order name: Urine Dipstick-Ancillary (obtain specimen); Complete Time: 11:05 [facility] Administered Medications: No medications were administered Disposition: 18:31 Co-signature as Attending Physician, Jefferson Leon MD. ma2 18:31 PA/[employer]'s history reviewed, patient interviewed, and examined. I agree with assessment ma2 and care plan and confirm the diagnosis (es) above. Disposition Summary: 05/09/21 11:12 Discharge Ordered Location: Home [facility] Condition: Stable [facility] Diagnosis - Urinary Retention [facility] - UTI/ Urinary tract infection, site not specified [facility] Followup: [facility] - With: Atif Hyman MD - When: 2 - 3 days - Reason: Recheck today's complaints, Continuance of care, Re-evaluation by your physician Discharge Instructions: - Discharge Summary Sheet jmm - Acute Urinary Retention, Male jmm - Urinary Tract Infection, Adult [facility] Forms: - Medication Reconciliation Form jm - Thank You Letter batool - Antibiotic Education [facility] - Prescription Opioid Use [facility] Prescriptions: - Macrobid 100 mg Oral Capsule - take 1 capsule by ORAL route every 12 hours for 7 days; 14 capsule; Refills: 0, jmm Product Selection Permitted Signatures: Dispatcher [employer] Rob Dobson PA PA jmm Alzahri, Mohammad, MD MD ma2 Triny Vaca RN RN vg1
[2021-05-09 11:59] VITALS: BP 157/95; TEMP 98.3; O2SAT 100
[2021-05-12 09:48] LABS: Urine Blood Trace-intact (Negative); Urine Glucose Trace (Negative); Urine Protein 1+ (Negative); Urine Specific Gravity 1.015 (1.005-1.030); Urine pH 8.5 (5.0-7.0)
== END 2021-05-09 11:45 | disposition home or self-care (01) ==
LOC: ER 10:02
DX: N39.0 Urinary tract infection, site not specified (principal); E03.9 Hypothyroidism, unspecified; G20 Parkinson's disease; Z88.2 Allergy status to sulfonamides
CPT/HCPCS: 51702; 81003; 87077; 87086; 87088; 87186; 99284

== ENCOUNTER 2021-05-23 09:41 | Emergency (ER) | payer OTHER, MEDICARE ==
[2021-05-23 10:33] LABS: Urine Blood Trace-lysed (Negative); Urine Glucose Negative (Negative); Urine Protein 2+ (Negative); Urine pH 8.5 (5.0-7.0)
[2021-05-23 10:34] LABS: Absolute Lymphocytes (CBC) 0.6 K/uL (0.7-4.9); Basophils % 0.3 % (0-1.3); Lymphocytes % 7.3 % (15.3-44.8); MPV 8.1 fL (7.6-11.3); RBC Red Blood Cell Count 4.22 M/uL (4.33-5.43)
--- NOTE | 2021-05-23 10:51 | RAD REPORT ---
EXAM DESCRIPTION: [facility] Protocol - 05/23/2021 10:40 am CLINICAL HISTORY: bladder distention COMPARISON: [facility] Protocol dated 04/07/2021; [facility] Protocol dated 04/04/2021 TECHNIQUE: CT of the abdomen and pelvis was performed. All CT scans are performed using dose optimization technique as appropriate and may include automated exposure control or mA/KV adjustment according to patient size. FINDINGS: Lower chest: Scarring in the right middle lobe and left lower lobe. Multi-vessel coronary artery disease. Liver: No acute abnormality or suspicious lesions. Biliary: No biliary ductal dilatation. Stomach: No significant focal abnormality. Duodenum: No significant focal abnormality. Pancreas: No significant abnormality. Spleen: No significant abnormality. Adrenal: No suspicious lesions. Kidney/ureter: No hydronephrosis. Punctate right renal stone. No ureteral calculi. Retroperitoneum: No retroperitoneal adenopathy. Vascular: No aneurysm. Bowel: No significant focal abnormality. Peritoneum: No ascites or free air. Bladder: Dilated bladder with Carr catheter in place. Hyperdense layering debris is noted. Circumfer ential bladder wall thickening suggesting chronic bladder outlet obstruction. Reproductive: No adnexal masses. Bones: No acute fracture. Other: n/a IMPRESSION: Distended bladder despite the presence of a Carr catheter. Correlate for acute urinary retention. Hyperdense debris within the lumen of the bladder may represent some layering bladder calc igor. Circumferential bladder wall thickening consistent with the presence of a chronic bladder outlet obstruction.
[2021-05-23 10:52] LABS: AST/SGOT 12 U/L (15-37); Albumin 3.3 g/dL (3.4-5.0); Alkaline Phosphatase 99 U/L (45-117); BUN Blood Urea Nitrogen 20 mg/dL (7-18); Bicarbonate 28 mmol/L (21-32); Bilirubin Total 0.5 mg/dL (0.2-1.0); Glucose Level 105 mg/dL (74-106); Protein, Total 7.3 g/dL (6.4-8.2); Sodium Level 139 mmol/L (136-145)
[2021-05-23 10:53] LABS: ALT/SGPT < 6 U/L (12-78)
--- NOTE | 2021-05-23 12:08 | ER ---
Nurse's Notes [facility] Name: Gaurav Hector Age: 76 yrs Sex: Male : 1945 Arrival Date: 05/23/2021 Time: 09:45 Bed 5 Private MD: Diagnosis: Acute Urinary Retention;UTI Presentation: 05/23 10:04 Chief complaint: Spouse and/or significant other states: pt has a curry in place, home health nurse saw a stone in the curry on , today he is having a lot of pain in left groin and his bladder appears distended , was told by Dr. Hyman office to come to ER. Coronavirus screen: At this time, the client does not indicate any symptoms associated with coronavirus-19. Ebola Screen: Patient negative for fever greater than or equal to 101.5 degrees Fahrenheit, and additional compatible Ebola Virus Disease symptoms Patient denies exposure to infectious person. Patient denies travel to an Ebola-affected area in the 21 days before illness onset. No symptoms or risks identified at this time. Risk Assessment: Do you want to hurt yourself or someone else? Patient reports no desire to harm self or others. Onset of symptoms was May 23, 2021. 10:04 Method Of Arrival: Wheelchair iw 10:04 Acuity: GO 3 iw 10:09 Initial Sepsis Screen: Does the patient meet any 2 criteria? No. Patient's initial iw sepsis screen is negative. Does the patient have a suspected source of infection? No. Patient's initial sepsis screen is negative. Historical: - Allergies: 10:09 Sulfa (Sulfonamide Antibiotics); iw - Home Meds: 10:09 Amantadine Oral [Active]; Carbidopa-Levodopa Oral [Active]; Eliquis Oral [Active]; iw - PMHx: 10:09 Hypothyroidism; Parkinsons; iw - PSHx: 10:09 Adenoid excision; Tonsillectomy; iw - Immunization history:: Adult Immunizations unknown. - Social history:: Smoking status: . Screenin:11 Abuse screen: Denies threats or abuse. Nutritional screening: No deficits noted. jd3 Tuberculosis screening: No symptoms or risk factors identified. Fall Risk Ambulatory Aid- Crutches/Cane/Walker (15 pts). Gait- Weak (10 pts.). Mental Status- Oriented to own ability (0 pts). Total Wilkes Fall Scale indicates Low Risk Score (25-44 pts). Fall prevention measures have been instituted. Side Rails Up X 2 Placed close to Nursing Station Frequent Obs/Assesments occuring Family Present and informed to notify staff if they need to leave bedside. Assessment: 10:20 General: Appears uncomfortable, Behavior is calm, cooperative, appropriate for age. jd3 Pain: Complains of pain in suprapubic area Quality of pain is described as crampy, pressure, tender. Neuro: Level of Consciousness is awake, alert, obeys commands, Oriented to person, place, time, situation. Cardiovascular: Denies chest pain, Capillary refill < 3 seconds Patient's skin is warm and dry. Respiratory: Airway is patent Respiratory effort is even, unlabored, Respiratory pattern is regular, symmetrical, Denies cough, shortness of breath. GI: No signs and/or symptoms were reported involving the gastrointestinal system. Patient currently denies diarrhea, nausea, vomiting. : Curry in place to gravity drainage no output noted. Curry catheter replaced and to gravity drainage. small amount of output, draining slowly. bladder distension noted Reports inability to void. EENT: No signs and/or symptoms were reported regarding the EENT system. Derm: Skin is intact, Skin is dry, Skin is normal, Skin temperature is warm. Musculoskeletal: Circulation, motion, and sensation intact. Range of motion: intact in all extremities. 11:10 Reassessment: Patient appears in no apparent distress at this time. Patient and/or jd3 family updated on plan of care and expected duration. Pain level reassessed. Patient is alert, oriented x 3, equal unlabored respirations, skin warm/dry/pink. Patient states feeling better. : Curry in place to gravity drainage cath draining well. pt reports stating to feel better. 11:44 Reassessment: Patient appears in no apparent distress at this time. Patient and/or jd3 family updated on plan of care and expected duration. Pain level reassessed. Patient is alert, oriented x 3, equal unlabored respirations, skin warm/dry/pink. Patient states feeling better. 12:35 Reassessment: Patient appears in no apparent distress at this time. Patient and/or jd3 family updated on plan of care and expected duration. Pain level reassessed. Patient is alert, oriented x 3, equal unlabored respirations, skin warm/dry/pink. pt and family reported understanding of discharge instructions. Vital Signs: 10:04 BP 113 / 82; Pulse 86; Resp 16; Temp 97.9; Pulse Ox 98% on R/A; iw 11:11 BP 113 / 73; Pulse 87; Resp 17 S; Pulse Ox 100% on R/A; jd3 11:43 BP 98 / 67; Pulse 87; Resp 16 S; Pulse Ox 100% on R/A; jd3 ED Course: 09:45 Patient arrived in ED. mr 09:55 Rob Gonzalez PA is PHCP. jmm 09:55 Allan Cuevas MD is Attending Physician. m 09:58 Yash Evangelista, RN is Primary Nurse. jd3 10:09 Triage completed. iw 10:09 Arm band placed on. iw 10:12 Bladder scan completed. 999. mt 10:20 Curry cath inserted, using sterile technique, 16 Fr., by emergency management consultant, balloon inflated, to jd3 gravity drainage, urine specimen collected. 10:25 Initial lab(s) drawn, by md, sent to lab. Inserted saline lock: 20 gauge in left kj1 antecubital area, using aseptic technique. Blood collected. 10:40 CT Stone Protocol In Process Unspecified. EDMS 11:12 Patient has correct armband on for positive identification. Bed in low position. Call jd3 light in reach. Side rails up X 1. Adult w/ patient. Pulse ox on. NIBP on. 12:05 Atif Hyman MD is Referral Physician. [facility] 12:36 No provider procedures requiring assistance completed. IV discontinued, intact, jd3 bleeding controlled, No redness/swelling at site. Pressure dressing applied. Administered Medications: No medications were administered Output: 11:43 Urine: 1300ml (Curry); Total: 1300ml. jd3 Outcome: 12:06 Discharge ordered by . [facility] 12:50 Discharged to home via wheelchair, with family. jd3 12:50 Condition: stable 12:50 Discharge instructions given to patient, family, Instructed on discharge instructions, follow up and referral plans. medication usage, Demonstrated understanding of instructions, follow-up care, medications, Prescriptions given X 1. 12:50 Patient left the ED. jd3 Signatures: Dispatcher [employer] EDMS Mickail, Rob, PA PA jmm Dennison, Sasha Noreen Koehler, RN RN ender [place], Yash Guevara mt, RN RN jMakayla Dykes kj1
--- NOTE | 2021-05-23 12:08 | EDPHYS ---
Physician Documentation [facility] Name: Gaurav Hector Age: 76 yrs Sex: Male : 1945 Arrival Date: 05/23/2021 Time: 09:45 Bed 5 Private MD: ANDRÉS Physician Allan Cuevas HPI: 05/23 10:03 This 76 yrs old Male presents to ER via Wheelchair with complaints of Groin jmm Pain. 10:03 The patient presents with urinary symptoms, retention. Onset: The symptoms/episode jmm began/occurred today. Modifying factors: The symptoms are alleviated by nothing, the symptoms are aggravated by nothing. Associated signs and symptoms: Pertinent negatives: fever. This is a 76-year-old male with history of Parkinson's disease the presents emerged department with urinary retention and abdominal distention. Denies fever or vomiting. Advised by his urologist to go to the ER for further evaluation. Historical: - Allergies: 10:09 Sulfa (Sulfonamide Antibiotics); iw - Home Meds: 10:09 Amantadine Oral [Active]; Carbidopa-Levodopa Oral [Active]; Eliquis Oral [Active]; iw - PMHx: 10:09 Hypothyroidism; Parkinsons; iw - PSHx: 10:09 Adenoid excision; Tonsillectomy; iw - Immunization history:: Adult Immunizations unknown. - Social history:: Smoking status: . ROS: 10:03 Constitutional: Negative for fever, chills, and weight loss, Cardiovascular: Negative jmm for chest pain, palpitations, and edema, Respiratory: Negative for shortness of breath, cough, wheezing, and pleuritic chest pain. 10:03 MS/Extremity: Negative for injury and deformity, Skin: Negative for injury, rash, and discoloration, Neuro: Negative for headache, weakness, numbness, tingling, and seizure, Psych: Negative for depression, anxiety, suicide ideation, homicidal ideation, and hallucinations. 10:03 : Positive for urinary symptoms. 10:03 All other systems are negative. Exam: 10:03 Constitutional: This is a well developed, well nourished patient who is awake, alert, jmm and in no acute distress. Head/Face: atraumatic. Eyes: EOMI, no conjunctival erythema appreciated ENT: Moist Mucus Membranes Neck: Trachea midline, Supple Chest/axilla: Normal chest wall appearance and motion. Cardiovascular: Regular rate and rhythm. No edema appreciated Respiratory: Normal respirations, no respiratory distress appreciated 10:03 Skin: General appearance color normal 10:03 Abdomen/GI: Inspection: distension, that is moderate, in the suprapubic area. 10:03 Musculoskeletal/extremity: ROM: intact in all extremities. 10:03 Skin: Appearance: Color: normal in color. 10:03 Neuro: Orientation: is normal, Mentation: is normal. 10:03 Psych: Behavior/mood is pleasant, cooperative. Vital Signs: 10:04 BP 113 / 82; Pulse 86; Resp 16; Temp 97.9; Pulse Ox 98% on R/A; iw 11:11 BP 113 / 73; Pulse 87; Resp 17 S; Pulse Ox 100% on R/A; jd3 11:43 BP 98 / 67; Pulse 87; Resp 16 S; Pulse Ox 100% on R/A; jd3 MDM: 10:03 Patient medically screened. [facility] 12:04 Data reviewed: vital signs, nurses notes. Counseling: I had a detailed discussion with batool the patient and/or guardian regarding: the historical points, exam findings, and any diagnostic results supporting the discharge/admit diagnosis, lab results, radiology results, the need for outpatient follow up, to return to the emergency department if symptoms worsen or persist or if there are any questions or concerns that arise at home. 05/23 10:18 Order name: CBC with Diff; Complete Time: 10:55 [facility] 05/23 10:18 Order name: CMP; Complete Time: 10:55 [facility] 05/23 10:03 Order name: Carr-Three way; Complete Time: 10:21 [facility] 05/23 10:03 Order name: Bladder Scanner; Complete Time: 10:13 [facility] 05/23 10:19 Order name: CT Stone Protocol; Complete Time: 10:55 [facility] 05/23 10:32 Order name: Urine Dipstick-Ancillary; Complete Time: 10:55 [facility] 05/23 10:18 Order name: Saline Lock; Complete Time: 11:06 [facility] Administered Medications: No medications were administered Disposition: 23:11 Co-signature as Attending Physician, Allan Cuevas MD I agree with the assessment and windy plan of care. Disposition Summary: 05/23/21 12:06 Discharge Ordered Location: Home [facility] Condition: Stable jm Diagnosis - Acute Urinary Retention jmm - UTI [facility] Followup: [facility] - With: Atif Hyman MD - When: 2 - 3 days - Reason: Recheck today's complaints, Continuance of care, Re-evaluation by your physician Discharge Instructions: - Discharge Summary Sheet jmm - Acute Urinary Retention, Male jmm Forms: - Medication Reconciliation Form [facility] - Thank You Letter [facility] - Antibiotic Education [facility] - Prescription Opioid Use [facility] Prescriptions: - Cephalexin 500 mg Oral Capsule - take 1 capsule by ORAL route every 8 hours for 10 days; 30 capsule; Refills: 0, jmm Product Selection Permitted Signatures: Dispatcher [employer] Allan Caal MD MD cha Mickail, Joel, PA PA jmm Williams, Irene, RN RN Yash Kellogg RN RN jd3
[2021-05-23 12:58] VITALS: TEMP 97.9
[2021-05-23 12:59] VITALS: O2SAT 100
[2021-05-23 13:01] VITALS: BP 98/67
== END 2021-05-23 12:50 | disposition home or self-care (01) ==
LOC: ER 09:41
DX: N39.0 Urinary tract infection, site not specified (principal); E03.9 Hypothyroidism, unspecified; G20 Parkinson's disease; Z88.2 Allergy status to sulfonamides
CPT/HCPCS: 36415; 51702; 74176; 76377; 80053; 81003; 85025; 99284

== ENCOUNTER 2021-06-06 15:26 | Emergency (ER) | payer OTHER, MEDICARE ==
[2021-06-06 18:01] LABS: Absolute Lymphocytes (CBC) 0.9 K/uL (0.7-4.9); Basophils % 0.5 % (0-1.3); Hematocrit 41.4 % (39.6-49.0); Lymphocytes % 11.8 % (15.3-44.8); RBC Red Blood Cell Count 4.58 M/uL (4.33-5.43)
[2021-06-06 19:23] LABS: Urine Appearance TURBID (Clear); Urine Color RED (Yellow)
[2021-06-06 19:27] LABS: Urine Bilirubin NEGATIVE (Negative); Urine Blood 3+ (Negative); Urine Glucose NEGATIVE (Negative); Urine Protein 2+ (Negative); Urine Urobilinogen 0.2 mg/dL (0.2-1.0)
[2021-06-06 19:28] LABS: Urine Bacteria <20 /HPF (NONE SEEN); Urine Mucus 1+ /HPF (NONE SEEN); Urine RBC TNTC /HPF (NONE SEEN)
--- NOTE | 2021-06-06 22:05 | ER ---
Nurse's Notes [facility] Name: Gaurav Hector Age: 76 yrs Sex: Male : 1945 Arrival Date: 06/06/2021 Time: 15:28 Bed 18 Private MD: Anthony Urban Diagnosis: Hematuria, unspecified;UTI/ Urinary tract infection, site not specified Presentation: 06/06 15:29 Ebola Screen: Patient denies travel to an Ebola-affected area in the 21 days before ll1 illness onset. Risk Assessment: Do you want to hurt yourself or someone else? Patient reports no desire to harm self or others. 15:29 Acuity: GO 3 ll1 19:33 Coronavirus screen: Vaccine status:. sl2 20:00 Chief complaint: Patient states: Bloody urine of indwelling catheter. cc4 20:00 Onset of symptoms was May 31, 2021. cc4 20:00 Onset of symptoms is unknown. cc4 20:00 Onset of symptoms was June 06, 2021 at 08:00. cc4 20:00 Onset of symptoms was 2020. cc4 20:00 Initial Sepsis Screen: Does the patient meet any 2 criteria? No. Patient's initial cc4 sepsis screen is negative. 20:00 Method Of Arrival: Wheelchair cc4 20:00 Care prior to arrival: Indwelling curry catheter. cc4 20:00 Onset of symptoms was May 23, 2021. cc4 20:00 Onset of symptoms was 2020. cc4 22:45 Initial Sepsis Screen: Does the patient have a suspected source of infection? No. cc4 Patient's initial sepsis screen is negative. Historical: - Allergies: 15:28 Sulfa (Sulfonamide Antibiotics); ll1 - PMHx: 15:28 Hypothyroidism; Parkinsons; ll1 - PSHx: 15:28 Adenoid excision; Tonsillectomy; ll1 - Immunization history:: Adult Immunizations up to date. - Social history:: Smoking status: Patient denies any tobacco usage or history of. Screenin:30 Abuse screen: Denies threats or abuse. sl2 18:30 Nutritional screening: No deficits noted. Tuberculosis screening: No symptoms or risk sl2 factors identified. Fall Risk No fall in past 12 months (0 pts). No secondary diagnosis (0 pts). IV access (20 points). Ambulatory Aid- Crutches/Cane/Walker (15 pts). Gait- Impaired (20 pts.). Mental Status- Oriented to own ability (0 pts). Total Wilkes Fall Scale indicates Low Risk Score (25-44 pts). Fall prevention measures have been instituted. Side Rails Up X 2 Frequent Obs/Assesments occuring Family Present and informed to notify staff if they need to leave bedside. Assessment: 18:30 General: Appears in no apparent distress. well groomed, well developed, Behavior is sl2 calm, cooperative. 18:30 Pain: Denies pain. sl2 20:00 Reassessment: Patient appears in no apparent distress at this time. Resting in bed \T\ cc4 watching TV; voices no complaints; \T\ bedside; curry cath. intact \T\ draining blood tinged urine with several sm. clots noted of leg bag; Instructed on plan to remove curry cath. \T\ replace with 3-way indwelling cath. with normal saline irrigation in attempt to stop bleeding with v/u. 20:35 Reassessment: Patient appears in no apparent distress at this time. No changes from cc4 previously documented assessment. eating sandwich/chips with no n/v with 100 % intake noted; curry cath. removed with 200 ml bloody urine noted of leg bag \T\ discarded, rk. well; # 22 FR three curry catheter inserted with no difficulty \T\ NS 0.9% irrigation hung \T\ flowing \T\ mod rate with no difficulty, rk. well. 21:55 Reassessment: Patient appears in no apparent distress at this time. 3 way irrigation cc4 complete x 3000 ml NS 0.9% to clear of urine bag; ARELY Pratt notified that irrigation is clear with okay to discharge home; 3 way foly cath. removed with # 18 FR curry cath. inserted with no difficulty with bleeding noted of urine again, ARELY Pratt notified with order rec'd to do manual irrigation of curry cath. 22:00 Reassessment: 500 ml NS 0.9% manual irrigation completed of bladder via curry catheter cc4 with clearing of urine, rk. well; ARELY Pratt notified with okay to discharge; saline lock removed right arm; NAD. Vital Signs: 15:36 BP 161 / 101; Pulse 83; Resp 17; Temp 98.7(TE); Pulse Ox 99% on R/A; Weight 58.97 kg; Height 5 ft. 10 in. (177.80 cm); Pain 0/10; 18:30 BP 162 / 78; Pulse 85; Resp 18; Pulse Ox 99% ; sl2 20:00 BP 143 / 92; Pulse 68; Resp 20; Temp 97.0; Pulse Ox 100% on R/A; cc4 22:45 BP 151 / 85; Pulse 72; Resp 20; Temp 97.6; Pulse Ox 100% on R/A; cc4 15:36 Body Mass Index 18.65 (58.97 kg, 177.80 cm) ED Course: 15:28 Patient arrived in ED. as 15:28 Anthony Urban MD is Private Physician. as 15:29 Triage completed. 1 15:29 Arm band placed on. [facility] 17:19 [facility] 17:19 David Beltre MD is Attending Physician. [facility] 18:30 Patient has correct armband on for positive identification. Bed in low position. Call sl2 light in reach. Side rails up X 1. Side rails up X2. Adult w/ patient. 18:30 Inserted. Inserted saline lock: in right Blood collected. 2 18:36 Urinalysis W/Microscopic Sent. 5 18:36 Urine Culture Sent. [facility] 19:29 Maite Del Rosario, RN is Primary Nurse. 2 19:37 Inserted. 2 22:03 Atif Hyman MD is Referral Physician. [facility] 22:45 IV discontinued, bleeding controlled, No redness/swelling at site. Pressure dressing cc4 applied. Administered Medications: No medications were administered Outcome: 22:04 Discharge ordered by . [facility] 22:45 Discharged to home via wheelchair. cc4 22:45 Condition: improved 22:45 Discharge instructions given to patient, Instructed on discharge instructions, follow up and referral plans. medication usage, Demonstrated understanding of instructions, follow-up care, medications, Prescriptions given X 1. 23:21 Patient left the ED. cc4 Addendum: 06/17/2021 08:29 Addendum: Culture Results: Positive urine culture. No further action required. Bacteria i w sensitive to prescribed antibiotic. Signatures: Rob Gonzalez PA PA jmm Martinez, Amelia as Noreen Ramsey RN RN Daisha Mendez RN RN Karie Krueger [facility] Alicia Le RN RN ll1 Shreya Burt, LEAN RN cc4 Maite Del Rosario RN RN sl2 Corrections: (The following items were deleted from the chart) 06/06 19:36 16:30 Patient has correct armband on for positive identification. Bed in low position. sl2 Call light in reach. Side rails up X 1. Side rails up X2. Adult w/ patient. 2 19:36 16:30 General: Appears in no apparent distress. well groomed, well developed, Behavior 2 is calm, cooperative, 2 :36 16:30 Pain: Denies pain. [place] [id number] 19:37 16:30 No provider procedures requiring assistance completed. [place] [id number] 19:38 16:30 Inserted saline lock: 22 gauge [place] [id number] :38 16:30 No provider procedures requiring assistance completed. [place] [id number] 19:39 16:30 Abuse screen: Denies threats or abuse. 2 [facility] 19:39 16:30 Nutritional screening: No deficits noted. 2 2 19:39 16:30 Tuberculosis screening: No symptoms or risk factors identified. [place] [id number] 19:39 16:30 Fall Risk None identified. No fall in past 12 months (0 pts). No secondary sl2 diagnosis (0 pts). IV access (20 points). Ambulatory Aid- Crutches/Cane/Walker (15 pts). Gait- Weak (10 pts.). Mental Status- Oriented to own ability (0 pts). Total Wilkes Fall Scale indicates Low Risk Score (25-44 pts). Side Rails Up X 2 1:1 attendant Assigned to Pt. Frequent Obs/Assesments occuring Family Present and informed to notify staff if they need to leave bedside sl2
--- NOTE | 2021-06-06 22:05 | EDPHYS ---
Physician Documentation [facility] Name: Gaurav Hector Age: 76 yrs Sex: Male : 1945 Arrival Date: 06/06/2021 Time: 15:28 Bed 18 Private MD: Anthony Urban ED Physician David Beltre HPI: 06/06 18:12 This 76 yrs old Male presents to ER via Unassigned with complaints of Urinary jmm Problem - blood. 18:12 The patient presents with urinary symptoms, dysuria. The patient presents with urinary jmm symptoms, hematuria. Onset: The symptoms/episode began/occurred acutely, today. Modifying factors: The symptoms are alleviated by nothing, the symptoms are aggravated by nothing. Associated signs and symptoms: Pertinent positives: hematuria. The patient has not experienced similar symptoms in the past. Historical: - Allergies: 15:28 Sulfa (Sulfonamide Antibiotics); ll1 - PMHx: 15:28 Hypothyroidism; Parkinsons; ll1 - PSHx: 15:28 Adenoid excision; Tonsillectomy; ll1 - Immunization history:: Adult Immunizations up to date. - Social history:: Smoking status: Patient denies any tobacco usage or history of. ROS: 18:12 Constitutional: Negative for fever, chills, and weight loss, Eyes: Negative for injury, jmm pain, redness, and discharge, ENT: Negative for injury, pain, and discharge, Neck: Negative for injury, pain, and swelling, Cardiovascular: Negative for chest pain, palpitations, and edema, Respiratory: Negative for shortness of breath, cough, wheezing, and pleuritic chest pain, Abdomen/GI: Negative for abdominal pain, nausea, vomiting, diarrhea, and constipation, Back: Negative for injury and pain, Skin: Negative for injury, rash, and discoloration. 18:12 : Positive for urinary symptoms. 18:12 All other systems are negative. Exam: 18:12 Constitutional: This is a well developed, well nourished patient who is awake, alert, jmm and in no acute distress. Head/Face: atraumatic. Eyes: EOMI, no conjunctival erythema appreciated ENT: Moist Mucus Membranes Neck: Trachea midline, Supple Chest/axilla: Normal chest wall appearance and motion. Cardiovascular: Regular rate and rhythm. No edema appreciated Respiratory: Normal respirations, no respiratory distress appreciated Abdomen/GI: Non distended, soft Back: Normal ROM Skin: General appearance color normal MS/ Extremity: Moves all extremities, no obvious deformities appreciated, no edema noted to the lower extremities Neuro: Awake and alert, normal gait Psych: Behavior is normal, Mood is normal, Patient is cooperative and pleasant Vital Signs: 15:36 BP 161 / 101; Pulse 83; Resp 17; Temp 98.7(TE); Pulse Ox 99% on R/A; Weight 58.97 kg; ss Height 5 ft. 10 in. (177.80 cm); Pain 0/10; 18:30 BP 162 / 78; Pulse 85; Resp 18; Pulse Ox 99% ; sl2 20:00 BP 143 / 92; Pulse 68; Resp 20; Temp 97.0; Pulse Ox 100% on R/A; cc4 22:45 BP 151 / 85; Pulse 72; Resp 20; Temp 97.6; Pulse Ox 100% on R/A; cc4 15:36 Body Mass Index 18.65 (58.97 kg, 177.80 cm) ss MDM: 17:20 Patient medically screened. [facility] 22:02 Data reviewed: vital signs, nurses notes. Counseling: I had a detailed discussion with [facility] the patient and/or guardian regarding: the historical points, exam findings, and any diagnostic results supporting the discharge/admit diagnosis, lab results, the need for outpatient follow up, to return to the emergency department if symptoms worsen or persist or if there are any questions or concerns that arise at home. 06/06 16:36 Order name: Urine Culture rn 06/06 17:22 Order name: BMP; Complete Time: 18:16 [facility] 06/06 17:22 Order name: CBC with Diff; Complete Time: 18:06 [facility] 06/06 18:28 Order name: Urinalysis W/Microscopic; Complete Time: 19:58 [facility] 06/06 16:36 Order name: Urine Dipstick-Ancillary (obtain specimen); Complete Time: 18:36 rn 06/06 17:22 Order name: Saline Lock; Complete Time: 19:30 [facility] 06/06 17:22 Order name: Misc. Order: bladder irriation; Complete Time: 20:49 [facility] 06/06 19:19 Order name: Misc. Order: bladder irrigation, with 3 way curry please; Complete Time: [facility] 20:49 Administered Medications: No medications were administered Disposition: 06/07 07:06 Co-signature as Attending Physician, David Beltre MD I agree with the assessment and rn plan of care. Attestation: The patient's history, exam findings, diagnostics, and a summary of any interventions or procedures was reviewed in detail with Rob MCGEE. Disposition Summary: 06/06/21 22:04 Discharge Ordered Location: Home [facility] Condition: Stable [facility] Diagnosis - Hematuria, unspecified jm - UTI/ Urinary tract infection, site not specified [facility] Followup: [facility] - With: Atif Hyman MD - When: 2 - 3 days - Reason: Recheck today's complaints, Continuance of care, Re-evaluation by your physician Discharge Instructions: - Discharge Summary Sheet jm - Hematuria, Adult jm - Urinary Tract Infection, Adult [facility] Forms: - Medication Reconciliation Form [facility] - Thank You Letter [facility] - Antibiotic Education [facility] - Prescription Opioid Use [facility] Prescriptions: - Cephalexin 500 mg Oral Capsule - take 1 capsule by ORAL route every 8 hours for 10 days; 30 capsule; Refills: 0, [facility] Product Selection Permitted Signatures: Dispatcher [employer] EDRob Morales PA PA [facility] David Beltre MD MD rn Lewis, Lynsay, RN RN ll1 Shreya Burt RN RN cc4 Maite Del Rosario RN RN sl2 Corrections: (The following items were deleted from the chart) 06/06 18:23 18:14 URINALYSIS+U.LAB.BRZ ordered. EDPR EDMS 18:28 16:36 UA MICROSCOPIC+U.LAB.BRZ ordered. EDPR EDMS
[2021-06-07 01:48] VITALS: O2SAT 100
[2021-06-07 01:49] VITALS: BP 151/85; TEMP 97.6
== END 2021-06-06 23:21 | disposition home or self-care (01) ==
LOC: ER 15:26
DX: N39.0 Urinary tract infection, site not specified (principal); G20 Parkinson's disease; Z88.2 Allergy status to sulfonamides
CPT/HCPCS: 36415; 80048; 81001; 85025; 87077; 87086; 87088; 87186; 99283

== ENCOUNTER 2021-06-21 21:44 | Emergency (ER) | payer OTHER, MEDICARE ==
[2021-06-21 22:50] LABS: Urine Blood 2+ (Negative); Urine Glucose Negative (Negative); Urine Protein 3+ (Negative); Urine Specific Gravity 1.015 (1.005-1.030); Urine pH >=9.0 (5.0-7.0)
--- NOTE | 2021-06-21 23:32 | EDPHYS ---
Physician Documentation [facility] Name: Gaurav Hector Age: 76 yrs Sex: Male : 1945 Arrival Date: 06/21/2021 Time: 21:48 Bed 18 Private MD: ED Physician Kvng Malik HPI: 06/21 22:32 This 76 yrs old Male presents to ER via Wheelchair with complaints of Problem With jr8 Urinary Catheter. 22:32 Associated signs and symptoms: The patient has no apparent associated signs or jr8 symptoms. Modifying factors: The patient symptoms are alleviated by nothing, the patient symptoms are aggravated by nothing. It is unknown whether or not the patient has had similar symptoms in the past. The patient has not recently seen a physician. This is a 76-year-old male with a history of indwelling Carr catheter due to urinary retention that presented to the emergency room tonight for decrease in urination. Last Carr placement was June 06. Historical: - Allergies: 22:07 Sulfa (Sulfonamide Antibiotics); vg1 - PMHx: 22:07 Hypothyroidism; Parkinsons; vg1 - PSHx: 22:07 Adenoid excision; Tonsillectomy; vg1 - Immunization history:: Client reports receiving the 2nd dose of the Covid vaccine. - Social history:: Smoking status: Patient denies any tobacco usage or history of. ROS: 22:32 Eyes: Negative for injury, pain, redness, and discharge, ENT: Negative for injury, jr8 pain, and discharge, Neck: Negative for injury, pain, and swelling, Cardiovascular: Negative for chest pain, palpitations, and edema, Respiratory: Negative for shortness of breath, cough, wheezing, and pleuritic chest pain, Abdomen/GI: Negative for abdominal pain, nausea, vomiting, diarrhea, and constipation, Back: Negative for injury and pain, MS/Extremity: Negative for injury and deformity, Skin: Negative for injury, rash, and discoloration, Neuro: Negative for headache, weakness, numbness, tingling, and seizure. 22:32 : Positive for small amounts, penile pain. Exam: 22:32 Constitutional: This is a well developed, well nourished patient who is awake, alert, jr8 and in no acute distress. Cardiovascular: Regular rate and rhythm with a normal S1 and S2. No gallops, murmurs, or rubs. Normal PMI, no JVD. No pulse deficits. Respiratory: Lungs have equal breath sounds bilaterally, clear to auscultation and percussion. No rales, rhonchi or wheezes noted. No increased work of breathing, no retractions or nasal flaring. Back: No spinal tenderness. No costovertebral tenderness. Full range of motion. Skin: Warm, dry with normal turgor. Normal color with no rashes, no lesions, and no evidence of cellulitis. MS/ Extremity: Pulses equal, no cyanosis. Neurovascular intact. Full, normal range of motion. Neuro: Awake and alert, GCS 15, oriented to person, place, time, and situation. Cranial nerves II-XII grossly intact. Motor strength 5/5 in all extremities. Sensory grossly intact. 22:32 Abdomen/GI: Inspection: distension, that is moderate, in the suprapubic area, Bowel sounds: active, all quadrants, Palpation: soft, in all quadrants. Vital Signs: 22:03 BP 155 / 93; Pulse 87; Resp 24; Temp 98.2(O); Pulse Ox 100% ; Weight 67.59 kg; Height 5 vg1 ft. 10 in. (177.80 cm); Pain 10/10; 23:07 BP 113 / 71; Pulse 72; Resp 18 S; Pulse Ox 97% on R/A; as6 22:03 Body Mass Index 21.38 (67.59 kg, 177.80 cm) vg1 MDM: 22:07 Patient medically screened. [facility] 22:32 Data reviewed: vital signs, nurses notes, lab test result(s), and as a result, I will [facility] discharge patient. Data interpreted: Pulse oximetry: on room air is 100 %. Interpretation: normal. Counseling: I had a detailed discussion with the patient and/or guardian regarding: the historical points, exam findings, and any diagnostic results supporting the discharge/admit diagnosis, lab results, the need for outpatient follow up, a family practitioner, a urologist, to return to the emergency department if symptoms worsen or persist or if there are any questions or concerns that arise at home. 23:30 ED course: Patient's Carr was discontinued and we placed a new Carr and as he was in jr8 acute retention. We were able to take out approximately 1000 mL. Patient's symptoms have completely resolved at this point time. Remains hemodynamically stable and afebrile.. 06/21 22:08 Order name: Urine Culture jr8 06/21 22:08 Order name: Urine Microscopic Only; Complete Time: 23:53 jr8 06/21 22:08 Order name: Urine Dipstick-Ancillary (obtain specimen); Complete Time: 22:50 jr8 06/21 22:49 Order name: Urine Dipstick-Ancillary; Complete Time: 23:15 EDMS Administered Medications: No medications were administered Disposition: 06/22 00:20 Co-signature as Attending Physician, Kvng Malik MD. pkrosales Disposition Summary: 06/21/21 23:31 Discharge Ordered Location: Home jr8 Problem: new jr8 Symptoms: have improved jr8 Condition: Stable jr8 Diagnosis - Retention of urine, unspecified jr8 Followup: jr8 - With: Private Physician - When: 2 - 3 days - Reason: Recheck today's complaints, Continuance of care, Re-evaluation by your physician Discharge Instructions: - Discharge Summary Sheet jr8 - Acute Urinary Retention, Male jr8 Forms: - Medication Reconciliation Form jr8 - Thank You Letter jr8 - Antibiotic Education jr8 - Prescription Opioid Use jr8 Signatures: Dispatcher [employer] EDMS Kvng Malik MD MD pkl Abel Neville PA PA jr8 Triny Vaca, RN RN vg1
--- NOTE | 2021-06-21 23:32 | ER ---
Nurse's Notes [facility] Name: Gaurav Hector Age: 76 yrs Sex: Male : 1945 Arrival Date: 06/21/2021 Time: 21:48 Bed 18 Private MD: Diagnosis: Retention of urine, unspecified Presentation: 06/21 22:03 Chief complaint: Patient states: 'penis hoang' x1 week, states blood in urine. Denies vg1 NV. Denies redness or swelling at site. States urinary catheter was placed on 06/06/21 in ED. Coronavirus screen: Vaccine status: Patient reports receiving the 2nd dose of the covid vaccine. Client denies travel out of the [place] in the last 14 days. Ebola Screen: Patient negative for fever greater than or equal to 101.5 degrees Fahrenheit, and additional compatible Ebola Virus Disease symptoms. Initial Sepsis Screen: Does the patient meet any 2 criteria? RR > 20 per min. Risk Assessment: Do you want to hurt yourself or someone else? Patient reports no desire to harm self or others. Onset of symptoms was June 14, 2021. 22:03 Method Of Arrival: Wheelchair vg1 22:03 Acuity: GO 3 vg1 Triage Assessment: 22:07 General: Appears in no apparent distress. uncomfortable, Behavior is calm, cooperative. vg1 Pain: Complains of pain in penis Pain currently is 10 out of 10 on a pain scale. Historical: - Allergies: 22:07 Sulfa (Sulfonamide Antibiotics); vg1 - PMHx: 22:07 Hypothyroidism; Parkinsons; vg1 - PSHx: 22:07 Adenoid excision; Tonsillectomy; vg1 - Immunization history:: Client reports receiving the 2nd dose of the Covid vaccine. - Social history:: Smoking status: Patient denies any tobacco usage or history of. Screenin/02 00:11 Abuse screen: Denies threats or abuse. Nutritional screening: No deficits noted. as6 Tuberculosis screening: No symptoms or risk factors identified. Fall Risk Gait- Weak (10 pts.). Total Wilkes Fall Scale indicates No Risk (0-24 pts). Assessment: 06/21 22:30 General: Appears in no apparent distress. uncomfortable, Behavior is calm, cooperative. as6 Pain: Complains of pain in suprapubic area. Neuro: Level of Consciousness is awake, alert, obeys commands, Oriented to person, place, time, situation. Cardiovascular: Capillary refill < 3 seconds Patient's skin is warm and dry. Respiratory: Airway is patent Trachea midline Respiratory effort is even, unlabored, Respiratory pattern is regular, symmetrical. GI: Abdomen is distended, Abdomen is tender to palpation in suprapubic area Reports lower abdominal pain. : Carr in place Bladder is distended. Derm: Skin is intact. Vital Signs: 22:03 BP 155 / 93; Pulse 87; Resp 24; Temp 98.2(O); Pulse Ox 100% ; Weight 67.59 kg; Height 5 vg1 ft. 10 in. (177.80 cm); Pain 10/10; 23:07 BP 113 / 71; Pulse 72; Resp 18 S; Pulse Ox 97% on R/A; as6 22:03 Body Mass Index 21.38 (67.59 kg, 177.80 cm) vg1 ED Course: 21:48 Patient arrived in ED. bp1 21:52 Trey Garcia, LENA is Primary Nurse. as6 22:00 Abel Neville PA is PHCP. jr8 22:00 Kvng Malik MD is Attending Physician. jr8 22:07 Triage completed. vg1 22:07 Arm band placed on. vg1 22:30 Carr cath removed intact, balloon deflated. as6 22:45 Carr cath inserted, using sterile technique, 16 Fr., by ut, balloon inflated, to as6 gravity drainage, urine specimen collected. 06/22 00:12 No provider procedures requiring assistance completed. Patient did not have IV access as6 during this emergency room visit. 00:13 Bed in low position. Call light in reach. Side rails up X2. Adult w/ patient. Pulse ox as6 on. NIBP on. Administered Medications: No medications were administered Outcome: 06/21 23:31 Discharge ordered by . jrGerardo 06/22 00:12 Discharged to home via wheelchair, with significant other. as6 Condition: stable Discharge instructions given to patient, significant other, Instructed on discharge instructions, follow up and referral plans. Demonstrated understanding of instructions, follow-up care. 00:14 Patient left the ED. as6 Addendum: 06/27/2021 09:40 Addendum: Culture Results: Positive urine culture. Bacteria is resistant to, has i w intermediate sensitivity, or is not tested against prescribed antibiotics. Report given to JOSEPH for further evaluation and then to clock and watch hands dipper for follow up with patient. Phone call Prescription called-in to pharmacy of choice. called in Cipro 500 mg PO BID X 5 days, #10, no refills , per Abel Neville. Signatures: Noreen Ramsey, RN Abel Woodruff PA PA jr8 Triny Vaca RN RN vg1 Barb Albarran Ashby, RN RN as6
[2021-06-21 23:36] LABS: Urine Bacteria LOADED /HPF (NONE SEEN); Urine Triple Phosphate Crystal MANY (NONE SEEN)
[2021-06-21 23:37] LABS: Urine RBC 20-50 /HPF (NONE SEEN)
[2021-06-22 00:19] VITALS: TEMP 98.2
[2021-06-22 00:20] VITALS: BP 113/71; O2SAT 97
== END 2021-06-22 00:14 | disposition home or self-care (01) ==
LOC: ER 21:44
DX: R33.9 Retention of urine, unspecified (principal); G20 Parkinson's disease; Z88.2 Allergy status to sulfonamides
CPT/HCPCS: 51702; 81003; 81015; 87077; 87086; 87088; 87186; 99284

== ENCOUNTER 2021-06-24 15:04 | Emergency (ER) | payer OTHER, MEDICARE ==
[2021-06-24] MEDS ORDERED: LIDOCAINE 1% MPF 5 ML VIAL ONE (17:11)
[2021-06-24] MEDS ORDERED: CEFTRIAXONE 1000 MG/VIAL ONE (17:11)
--- NOTE | 2021-06-24 17:25 | ER ---
Nurse's Notes [facility] Name: Gaurav Hector Age: 76 yrs Sex: Male : 1945 Arrival Date: 06/24/2021 Time: 15:05 Bed 13 Private MD: Anthony Urban Diagnosis: UTI/ Urinary tract infection, site not specified;Encounter for fitting and adjustment of urinary device Presentation: 06/24 15:25 Chief complaint: Parent and/or Guardian states: Noticed curry catheter was not draining ss just prior to arrival. Family member reports that this same thing occurred 2 days ago and had to have catheter changed. Coronavirus screen: Client denies travel out of the [place] in the last 14 days. Ebola Screen: Patient denies exposure to infectious person. Patient denies travel to an Ebola-affected area in the 21 days before illness onset. Initial Sepsis Screen: Does the patient meet any 2 criteria? No. Patient's initial sepsis screen is negative. Does the patient have a suspected source of infection? No. Patient's initial sepsis screen is negative. Risk Assessment: Do you want to hurt yourself or someone else? Patient reports no desire to harm self or others. Onset of symptoms was June 24, 2021. 15:25 Method Of Arrival: Wheelchair ss 15:25 Acuity: GO 3 ss Historical: - Allergies: 15:29 Sulfa (Sulfonamide Antibiotics); ss - PMHx: 15:29 Hypothyroidism; Parkinsons; ss - PSHx: 15:29 Adenoid excision; Tonsillectomy; ss - Immunization history:: Client reports receiving the 2nd dose of the Covid vaccine. - Social history:: Smoking status: Patient denies any tobacco usage or history of. Screenin:29 Abuse screen: Denies threats or abuse. Nutritional screening: No deficits noted. jh6 Tuberculosis screening: No symptoms or risk factors identified. Fall Risk None identified. Assessment: 15:39 General: Appears distressed, uncomfortable, Behavior is cooperative. jh6 15:39 Pain: Complains of pain in umbilical area and suprapubic area Pain currently is 10 out jh6 of 10 on a pain scale. Quality of pain is described as gnawing, reports pain as a pressure Pain began 1 day ago. Is continuous, Aggravated by increased activity. : Bladder is distended CVA tenderness noted Reports inability to void, since lastnight. Vital Signs: 14:50 BP 144 / 86; Pulse 77; Resp 18; Pulse Ox 100% ; Pain 0/10; jh6 15:25 BP 153 / 92; Pulse 84; Resp 17; Temp 98.4(TE); Pulse Ox 100% on R/A; Weight 58.97 kg; ss Height 5 ft. 10 in. (177.80 cm); 16:27 BP 139 / 82; Pulse 80; Resp 17; Pulse Ox 99% on R/A; jh6 15:25 Body Mass Index 18.65 (58.97 kg, 177.80 cm) ED Course: 15:05 Patient arrived in ED. as 15:05 Anthony Urban MD is Private Physician. as 15:29 Triage completed. ss 15:29 Arm band placed on right wrist. ss 15:34 Kit Harrison NP is PHCP. pm1 15:34 David Beltre MD is Attending Physician. pm1 15:48 Irene Smith RN is Primary Nurse. jh6 16:08 Curry cath removed intact, balloon deflated. jh6 16:10 Curry cath inserted, using sterile technique, 16 Fr., by ma, balloon inflated, to jh6 gravity drainage. 16:22 Patient has correct armband on for positive identification. Placed in gown. Bed in low mh5 position. Call light in reach. Side rails up X 1. Adult w/ patient. Warm blanket given. Pulse ox on. NIBP on. 16:22 Bladder scan completed. mh5 16:25 Resting quietly. jh6 17:24 Atif Hyman MD is Referral Physician. pm1 18:07 No provider procedures requiring assistance completed. Patient did not have IV access jh6 during this emergency room visit. Administered Medications: 17:15 Drug: Rocephin (cefTRIAXone) 1 grams Route: IM; Site: right gluteus; jh6 18:10 Follow up: Response: No adverse reaction jh6 Output: 16:27 Urine: 1400ml (Curry); Total: 1400ml. jh6 Outcome: 17:24 Discharge ordered by . pm1 18:08 Discharged to home ambulatory. jh6 18:08 Condition: good 18:08 Discharge instructions given to patient, family, Instructed on discharge instructions, follow up and referral plans. Demonstrated understanding of instructions, follow-up care, medications, Prescriptions given X 1. 18:10 Patient left the ED. jh6 Signatures: Doreen Krueger Shelby, LENA RN Kit Valdes NP DEVELOPMENT ANALYST pm1 Karie Krueger [facility] Irene Smith RN RN jh6
--- NOTE | 2021-06-24 17:26 | EDPHYS ---
Physician Documentation [facility] Name: Gaurav Hector Age: 76 yrs Sex: Male : 1945 Arrival Date: 06/24/2021 Time: 15:05 Bed 13 Private MD: Anthony Urban ED Physician David Beltre HPI: 06/24 15:44 This 76 yrs old Male presents to ER via Wheelchair with complaints of Problem With pm1 Urinary Catheter - clogged, Pelvic Pain. 15:44 The patient presents with Catheter not draining since this morning. Onset: The pm1 symptoms/episode began/occurred this morning. Modifying factors: The symptoms are alleviated by nothing, the symptoms are aggravated by nothing. Associated signs and symptoms: Pertinent positives: abdominal pain, Suprapubic area, Pertinent negatives: fever. Severity of symptoms: in the emergency department the symptoms are unchanged. The patient has experienced similar episodes in the past, several times. The patient has been recently seen at the [facility] Emergency Department, this week, for similar complaints Carr catheter changed and urine sample collected. Patient presents to the ER with Carr catheter in place. Patient has been using Carr catheter for a few months. Patient of Dr. Hyman. Possibly had a TURP in the office with him but is still dealing with urinary retention issues. Dr. Hyman recommended another TURP in the hospital but the patient refused. Patient was seen here 2 days ago with the same complaint of Carr catheter not working properly. Had his Carr catheter changed and was discharged home at that time. Historical: - Allergies: 15:29 Sulfa (Sulfonamide Antibiotics); ss - PMHx: 15:29 Hypothyroidism; Parkinsons; ss - PSHx: 15:29 Adenoid excision; Tonsillectomy; ss - Immunization history:: Client reports receiving the 2nd dose of the Covid vaccine. - Social history:: Smoking status: Patient denies any tobacco usage or history of. ROS: 15:44 Constitutional: Negative for fever, chills, and weight loss, Cardiovascular: Negative pm1 for chest pain, palpitations, and edema, Respiratory: Negative for shortness of breath, cough, wheezing, and pleuritic chest pain. 15:44 Back: Negative for injury and pain. 15:44 MS/Extremity: Negative for injury and deformity, Skin: Negative for injury, rash, and discoloration. 15:44 Abdomen/GI: Positive for abdominal pain, of the suprapubic area, Negative for nausea, vomiting, and diarrhea. 15:44 : Positive for Carr catheter not draining since this morning, Negative for flank pain. 15:44 All other systems are negative. Exam: 15:44 Constitutional: This is a well developed, well nourished patient who is awake, alert, pm1 and in no acute distress. Head/Face: Normocephalic, atraumatic. 15:44 Back: No spinal tenderness. No costovertebral tenderness. Full range of motion. Skin: Warm, dry with normal turgor. Normal color with no rashes, no lesions, and no evidence of cellulitis. MS/ Extremity: Pulses equal, no cyanosis. Neurovascular intact. Full, normal range of motion. 15:44 Cardiovascular: Exam negative for acute changes, Rate: normal, Rhythm: regular, Pulses: no pulse deficits are appreciated, Edema: is not appreciated. 15:44 Respiratory: Exam negative for acute changes, respiratory distress, shortness of breath, Breath sounds: are clear throughout. 15:44 Abdomen/GI: Inspection: abdomen appears normal, Palpation: soft, in all quadrants, mild abdominal tenderness, in the suprapubic area, Bladder distention present. 15:44 Neuro: Exam negative for acute changes, Orientation: is normal, Mentation: is normal, Motor: is normal, moves all fours, Sensation: is normal, no obvious gross deficits. Vital Signs: 14:50 BP 144 / 86; Pulse 77; Resp 18; Pulse Ox 100% ; Pain 0/10; jh6 15:25 BP 153 / 92; Pulse 84; Resp 17; Temp 98.4(TE); Pulse Ox 100% on R/A; Weight 58.97 kg; ss Height 5 ft. 10 in. (177.80 cm); 16:27 BP 139 / 82; Pulse 80; Resp 17; Pulse Ox 99% on R/A; jh6 15:25 Body Mass Index 18.65 (58.97 kg, 177.80 cm) MDM: 15:36 Patient medically screened. pm1 16:16 ED course: 714 mL bladder scan. pm1 17:22 Data reviewed: vital signs. Data interpreted: Pulse oximetry: on room air is 99 %. pm1 Interpretation: normal. Counseling: I had a detailed discussion with the patient and/or guardian regarding: the historical points, exam findings, and any diagnostic results supporting the discharge/admit diagnosis, the need for outpatient follow up, a urologist, to return to the emergency department if symptoms worsen or persist or if there are any questions or concerns that arise at home. 17:22 ED course: Patient with ER visit 2 days ago for similar complaints. Urine sample was pm1 collected at that time and cultured. Urine culture and reviewed and sensitive to Augmentin. Will give patient Rocephin IM in ER and discharged with Augmentin to follow-up with urology. Patient afebrile vital signs stable patient can follow-up with Dr. Hyman. 06/24 15:44 Order name: Carr; Complete Time: 16:22 pm1 06/24 15:44 Order name: Urine Dipstick-Ancillary (obtain specimen) pm1 06/24 15:44 Order name: Bladder Scanner; Complete Time: 16:22 pm1 Administered Medications: 17:15 Drug: Rocephin (cefTRIAXone) 1 grams Route: IM; Site: right gluteus; [facility] 18:10 Follow up: Response: No adverse reaction [facility] Disposition: 06/25 07:01 Co-signature as Attending Physician, David Beltre MD I agree with the assessment and rn plan of care. Attestation: The patient's history, exam findings, diagnostics, and a summary of any interventions or procedures was reviewed in detail with Kit Harrison NP. Disposition Summary: 06/24/21 17:24 Discharge Ordered Location: Home pm1 Problem: new pm1 Symptoms: have improved pm1 Condition: Stable pm1 Diagnosis - UTI/ Urinary tract infection, site not specified pm1 - Encounter for fitting and adjustment of urinary device pm1 Followup: pm1 - With: Emergency Department - When: As needed - Reason: Worsening of condition Followup: pm1 - With: Atif Hyman MD - When: 2 - 3 days - Reason: Recheck today's complaints, Continuance of care, Re-evaluation by your physician Discharge Instructions: - Discharge Summary Sheet pm1 - Indwelling Urinary Catheter Care, Adult pm1 - Urinary Tract Infection, Adult pm1 Forms: - Medication Reconciliation Form pm1 - Thank You Letter pm1 - Antibiotic Education pm1 - Prescription Opioid Use pm1 Prescriptions: - Augmentin 875-125 mg Oral Tablet - take 1 tablet by ORAL route every 12 hours for 10 days; 20 tablet; Refills: 0, pm1 Product Selection Permitted Signatures: David Beltre MD MD rn Smirch, Shelby RN RN ss Kit Harrison, FILM LOADER FILM LOADER pm1 Irene Smith RN RN jh6
[2021-06-24 18:15] VITALS: TEMP 98.4
[2021-06-24 18:17] VITALS: BP 139/82; O2SAT 99
== END 2021-06-24 18:10 | disposition home or self-care (01) ==
LOC: ER 15:04
DX: Z46.6 Encounter for fitting and adjustment of urinary device (principal); N39.0 Urinary tract infection, site not specified
CPT/HCPCS: 51702; 96372; 99284

== ENCOUNTER 2021-08-17 09:50 | Inpatient (IN) | payer OTHER, MEDICARE ==
--- OUTSIDE RECORDS SUMMARY | 2021-08-17 09:53 | XMS REPORT | Continuity of Care Document ---
:1945 Author Organization [facility] t Address [address] [place] [address] Dr. Hoffman [address] [place] [id number] Care Team Providers Name Role Phone Unavailable Unavailable Unavailable Problems This patient has no known problems. Allergies, Adverse Reactions, Alerts This patient has no known allergies or adverse reactions. Medications This patient has no known medications. Procedures This patient has no known procedures. Encounters Start End Encounter Admission Attending Care Care Encounter Source Date/Time Date/Time Type Type Clinicians Facility Department ID 2021-08-16 Outpatient [facility] [id number] [facility] 13:49:12 [id number] [facility] Results This patient has no known results.
[2021-08-17] MEDS ORDERED: MORPHINE 2 MG/ML SYR ONE (10:25)
[2021-08-17 10:55] LABS: Hematocrit 40.1 % (39.6-49.0); Lymphocytes % 19.1 % (15.3-44.8); MPV 7.5 fL (7.6-11.3)
[2021-08-17 10:56] LABS: Protime INR 1.07
[2021-08-17 11:12] LABS: Albumin 3.5 g/dL (3.4-5.0); Bilirubin Direct 0.1 mg/dL (0-0.2); Bilirubin Total 0.3 mg/dL (0.2-1.0); Magnesium 2.7 mg/dL (1.8-2.4); Potassium 3.9 mmol/L (3.5-5.1); Protein, Total 7.8 g/dL (6.4-8.2)
[2021-08-17 11:22] LABS: Troponin High Sensitivity 60.9 pg/mL (<58.9)
--- NOTE | 2021-08-17 11:31 | RAD REPORT ---
EXAM DESCRIPTION: RAD - Chest Single View - 08/17/2021 10:57 am CLINICAL HISTORY: ABDOMINAL DISTENTION COMPARISON: Portable March 2021 TECHNIQUE: AP portable chest image was obtained 08/17/2021 10:57 am . FINDINGS: Prominent fibrotic lung pattern is present matching comparison. No focal mass or consolida tion. No acute failure or volume overload suspected. Heart and vasculature are normal. No measurable pleural effusion and no pneumothorax. No acute bony abnormality seen. No acute aortic findings suspected. IMPRESSION: No acute cardiopulmonary process. Above detailed findings are stable from comparison.
[2021-08-17] MEDS ORDERED: NA CHLORIDE 0.9% 500 ML ONE (11:55)
--- NOTE | 2021-08-17 12:33 | RAD REPORT ---
EXAM DESCRIPTION: CT - Head Brain Wo Cont - 08/17/2021 12:15 pm CLINICAL HISTORY: HEADACHE COMPARISON: Head C Spine Mpr Wo Con dated 04/16/2021 TECHNIQUE: Axial 5 mm thick images of the head were obtained without IV contrast. All CT scans are performed using dose optimization technique as appropriate and may include automated exposure control or mA/KV adjustment according to patient size. FINDINGS: No intracranial hemorrhage, mass, edema or shift of mid-line structures. No acute cortical based infarction. No cortical edema or sulcal effacement. 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 This matches comparison. No abnormal extra-ax ial fluid collections. Ventricles are normal. Chronic ischemic changes are seen in the cerebral white matter. Arterial and physiologic calcifications are present. Mastoid air cells and visualized portions of the paranasal sinuses are clear. No acute bony findings. IMPRESSION: Negative non-contrast CT head examination for acute finding. Above detailed findings are similar to the March 2021 study.
--- NOTE | 2021-08-17 12:40 | RAD REPORT ---
EXAM DESCRIPTION: CT - Abdomen Pelvis W Contrast - 08/17/2021 12:16 pm CLINICAL HISTORY: Abdominal distention;Abd pain COMPARISON: Stone Protocol dated 05/23/2021 TECHNIQUE: Biphasic, helical CT imaging of the abdomen and pelvis was performed following 100 ml non -ionic IV contrast. No oral contrast was administered. All CT scans are performed using dose optimization technique as appropriate and may include automated exposure control or mA/KV adjustment according to patient size. FINDINGS: There is motion limitation as well is artifact created by the patient's arms pain along hi s site. Scarring is present in the lung bases. Heart size is prominent but no pericardial effusion is present . The liver, spleen, and pancreas show no suspicious findings. Gallbladder and biliary tree are also wi thout suspicious finding. Prompt, symmetric renal function is present without measurable delay. No acute renal parenchymal proc ess identifiable. There is dilatation of the bilateral renal collecting systems. There is marked dila tation of the urinary bladder with the dome of the bladder extending above the iliac crest level. No bladder wall thickening or mass identifiable. No bladder stone is seen. Prostate gland is not appear abnormally enlarged. No pyelonephritis or acute parenchymal process. No adrenal abnormalities. No gastric dilatation gastric wall thickening. There are multiple prominent fluid-filled small bowel loops. Patient has a large amount of stool present distending the entire course of the colon. No jaime e air, free fluid or inflammatory stranding. No hernia, mass or bulky lymphadenopathy. No suspicious bony findings. IMPRESSION: Marked dilatation of the urinary bladder with the dome the bladder extending superiorly above the level of the iliac crests. No bladder wall thickening or mass. Prostate gland is not enlarg ed. There could be a prostatic urethral stricture. Mild bilateral hydronephrosis results secondary to the dilated urinary bladder. Large amount of stool is present distending the entirety of the colon. Multiple distended fluid-filled small bowel loops are present. This could be a nonspecific enteritis. This may be a secondary results of the colon constipation pattern.
[2021-08-17 14:19] LABS: Urine Blood 3+ (Negative); Urine Glucose Negative (Negative); Urine Protein 1+ (Negative); Urine Specific Gravity >=1.030 (1.005-1.030)
[2021-08-17 14:44] LABS: Urine Bacteria <20 /HPF (NONE SEEN); Urine RBC 20-50 /HPF (NONE SEEN)
--- NOTE | 2021-08-17 14:47 | ER ---
Nurse's Notes [facility] Name: Gaurav Hector Age: 76 yrs Sex: Male : 1945 Arrival Date: 08/17/2021 Time: 09:56 Bed 23 Private MD: Diagnosis: Retention of urine, unspecified Presentation: 08/17 09:56 Chief complaint: Patient states: bilateral legs weakness, constipation and dehydration. [place] Coronavirus screen: Vaccine status: Patient reports receiving the 2nd dose of the covid vaccine. Ebola Screen: Patient denies travel to an Ebola-affected area in the 21 days before illness onset. Initial Sepsis Screen: Does the patient meet any 2 criteria? No. Patient's initial sepsis screen is negative. Does the patient have a suspected source of infection? No. Patient's initial sepsis screen is negative. Risk Assessment: Do you want to hurt yourself or someone else? Patient reports no desire to harm self or others. Onset of symptoms was August 17, 2021. 09:56 Method Of Arrival: EMS: [facility] 09:56 Acuity: GO 3 [place] Triage Assessment: 09:58 General: Appears in no apparent distress. Behavior is calm, cooperative. Pain: [place] Complains of pain in abdomen. Historical: - Allergies: 09:58 Sulfa (Sulfonamide Antibiotics); [place] - PMHx: 09:58 Hypothyroidism; Parkinsons; [place] - PSHx: 09:58 Adenoid excision; Tonsillectomy; [place] - Immunization history:: Adult Immunizations up to date. - Social history:: Smoking status: Patient denies any tobacco usage or history of. Screenin:00 Abuse screen: Denies threats or abuse. Denies injuries from another. Nutritional [place] screening: No deficits noted. Tuberculosis screening: No symptoms or risk factors identified. Fall Risk Secondary diagnosis (15 points) impaired mobility. Assessment: 10:00 Reassessment:. General: Appears in no apparent distress. Behavior is calm, cooperative. [place] Neuro: GI: Abdomen is round distended. Musculoskeletal: Reports weakness in right leg and left leg. 10:15 General: Appears in no apparent distress. slender, Behavior is calm, cooperative. Pain: ww Complains of pain in abdomen. Neuro: Level of Consciousness is awake, alert, obeys commands, Oriented to person, place, time, situation. Cardiovascular: Denies chest pain, Patient's skin is warm and dry. Rhythm is sinus tachycardia. Respiratory: No deficits noted. Airway is patent Respiratory effort is even, unlabored, Respiratory pattern is regular, symmetrical. GI: Abdomen is round distended, Reports constipation. : No deficits noted. No signs and/or symptoms were reported regarding the genitourinary system. EENT: drooling. Derm: Skin is intact, is fragile, is thin. 11:30 Reassessment: Patient appears in no apparent distress at this time. No changes from ww previously documented assessment. Patient and/or family updated on plan of care and expected duration. Pain level reassessed. Patient is alert, oriented x 3, equal unlabored respirations, skin warm/dry/pink. 12:30 Reassessment: Patient appears in no apparent distress at this time. No changes from ww previously documented assessment. transported to CT scan. 13:26 Reassessment: Patient appears in no apparent distress at this time. No changes from ww previously documented assessment. Patient and/or family updated on plan of care and expected duration. Pain level reassessed. Patient is alert, oriented x 3, equal unlabored respirations, skin warm/dry/pink. 14:23 Reassessment: Patient appears in no apparent distress at this time. No changes from ww previously documented assessment. Patient and/or family updated on plan of care and expected duration. Pain level reassessed. Patient is alert, oriented x 3, equal unlabored respirations, skin warm/dry/pink. 15:26 Reassessment: Patient appears in no apparent distress at this time. No changes from ww previously documented assessment. sleeping in bed. 16:45 Reassessment: Patient appears in no apparent distress at this time. No changes from ww previously documented assessment. Patient and/or family updated on plan of care and expected duration. Pain level reassessed. Patient is alert, oriented x 3, equal unlabored respirations, skin warm/dry/pink. 17:28 Reassessment: Patient appears in no apparent distress at this time. No changes from ww previously documented assessment. Patient and/or family updated on plan of care and expected duration. Pain level reassessed. Patient is alert, oriented x 3, equal unlabored respirations, skin warm/dry/pink. 18:22 Reassessment: Patient appears in no apparent distress at this time. No changes from ww previously documented assessment. Patient and/or family updated on plan of care and expected duration. Pain level reassessed. Patient is alert, oriented x 3, equal unlabored respirations, skin warm/dry/pink. 19:19 General: I recv'd the in room 14. I agree with the previous assessment. We were able to shiela get a bsc for the pt and he was instructed to call for assist, to use it. . Vital Signs: 09:56 BP 130 / 95; Pulse 108; Resp 16; Temp 98.8(T); Pulse Ox 98% on R/A; Weight 57.15 kg; [place] Height 5 ft. 10 in. (177.80 cm); 10:00 BP 137 / 101; Pulse 112; Resp 19; Pulse Ox 98% on R/A; ww 10:30 BP 128 / 93; Pulse 101; Resp 19; Pulse Ox 98% on R/A; ww 11:30 BP 129 / 93; Pulse 107; Resp 21; Pulse Ox 98% on R/A; ww 12:01 BP 123 / 91; Pulse 100; Resp 15; Pulse Ox 99% on R/A; ww 14:17 BP 137 / 93; Pulse 118; Resp 16; Pulse Ox 100% on R/A; [place] 15:27 BP 133 / 92; Pulse 79; Resp 11; Pulse Ox 98% on R/A; ww 17:00 BP 166 / 102; Pulse 89; Resp 16; ww 18:24 BP 107 / 68; Pulse 94; Resp 13; Pulse Ox 97% on R/A; ww 09:56 Body Mass Index 18.08 (57.15 kg, 177.80 cm) ED Course: 09:56 Patient arrived in ED. [place] 09:58 Triage completed. [place] 09:58 Arm band placed on. [place] 10:00 Patient has correct armband on for positive identification. Bed in low position. [place] 10:00 No provider procedures requiring assistance completed. [place] 10:02 Allan Seaman PA is PHCP. cp 10:02 Roc Menjivar MD is Attending Physician. cp 10:12 Elke Robbins, LENA is Primary Nurse. ww 10:30 monitoring tech on. Pulse ox on. NIBP on. Warm blanket given. ww 10:57 XRAY Chest (1 view) In Process Unspecified. EDMS 12:15 CT Head Brain wo Cont In Process Unspecified. EDMS 12:16 CT Abd/Pelvis - IV Contrast Only In Process Unspecified. EDMS 14:22 Carr cath inserted, using sterile technique, 16 Fr., by ED staff, balloon inflated, to ww gravity drainage, urine specimen collected. other 1600ml output. 14:30 Warm blanket given. linen changed and patient cleaned. ww 14:46 Juliano Dueñas is Hospitalizing Provider. cp 17:48 COVID-19 SARS RT PCR (Document "Date of Onset" if Symptomatic) Sent. ww Administered Medications: 12:15 Not Given (Patient Refused): morphine 2 mg IVP once; (PAIN>8) RASS on ADMN: Combtv4, ww Very Agttd3, Agttd2, Rstlss1, AlertClm0, Drwsy-1, LtSdtn-2, ModSdtn-3, DpSdtn-4, UnArsble-5 x2 12:15 Drug: NS 0.9% 250 ml Route: IV; Rate: bolus; Site: left antecubital; ww 16:29 Follow up: IV Status: Completed infusion [place] 12:31 Drug: NS 0.9% 250 ml Route: IV; Rate: 75 ml/hr; Site: left antecubital; ww 16:29 Follow up: IV Status: Completed infusion [place] 15:06 Drug: Rocephin - (cefTRIAXone) 1 grams Route: IVPB; Infused Over: 30 mins; Site: left [place] antecubital; 16:29 Follow up: IV Status: Completed infusion [place] Output: 14:22 Urine: 1600ml (Carr); Total: 1600ml. ww Outcome: 14:46 Decision to Hospitalize by Provider. cp 21:24 Patient left the ED. sf1 Signatures: Dispatcher [employer] EDMS Allan Seaman PA PA cp O'Farrell, Brenda, RN RN bo Wood, Whitney, RN RN ww Au-Ophelia Ho RN RN ha Fillers, Samantha, RN RN sf1
--- NOTE | 2021-08-17 14:47 | EDPHYS ---
Physician Documentation [facility] Name: Gaurav Hector Age: 76 yrs Sex: Male : 1945 Arrival Date: 08/17/2021 Time: 09:56 Bed 23 Private MD: ED Physician Roc Menjivar HPI: 08/17 10:15 This 76 yrs old Male presents to ER via EMS with complaints of Weakness. cp 10:15 The patient presents with abdominal pain abdominal distention that is diffuse. cp constipation with last bowel movement 3 days ago. 10:15 The patient's problem is reported as weakness, in the right lower extremity, in the cp left lower extremity, headache. Onset: The symptoms/episode began/occurred this morning. Duration: The episode is continuous. Associated signs and symptoms: Pertinent negatives: chest pain, confusion, numbness, palpitations, vomiting. Severity of symptoms: in the emergency department the symptoms are unchanged despite home interventions. Historical: - Allergies: 09:58 Sulfa (Sulfonamide Antibiotics); [place] - PMHx: 09:58 Hypothyroidism; Parkinsons; [place] - PSHx: 09:58 Adenoid excision; Tonsillectomy; [place] - Immunization history:: Adult Immunizations up to date. - Social history:: Smoking status: Patient denies any tobacco usage or history of. ROS: 10:20 Constitutional: Positive for poor PO intake, Negative for body aches, chills, fever. cp 10:20 Eyes: Negative for injury, pain, redness, and discharge. cp 10:20 Cardiovascular: Negative for chest pain, edema, palpitations. 10:20 Respiratory: Negative for cough, shortness of breath, wheezing. 10:20 Abdomen/GI: Positive for abdominal pain, constipation, abdominal distension, Negative for vomiting, diarrhea, anorexia, black/tarry stool, rectal bleeding. 10:20 Back: Negative for pain at rest, pain with movement. 10:20 Neuro: Positive for headache, weakness of legs, Negative for altered mental status, dizziness, numbness, syncope. 10:20 All other systems are negative. Exam: 10:25 Constitutional: The patient appears in no acute distress, alert, awake, cp non-diaphoretic, non-toxic, well developed, well nourished. 10:25 Head/Face: Normocephalic, atraumatic. cp 10:25 Eyes: Pupils: equal, round, and reactive to light and accomodation, Extraocular movements: intact throughout, Sclera: no appreciated abnormality, Lids and lashes: appear normal, bilaterally. 10:25 ENT: External ear(s): are unremarkable, Nose: is normal, Mouth: Lips: dry, Oral mucosa: moist, Posterior pharynx: Airway: no evidence of obstruction, patent. 10:25 Neck: ROM/movement: is normal, is supple, without pain, no range of motions limitations, no nuchal rigidity. 10:25 Chest/axilla: Inspection: normal, Palpation: is normal, no crepitus, no tenderness. 10:25 Cardiovascular: Rate: tachycardic, Rhythm: regular, Edema: is not appreciated, JVD: is not appreciated. 10:25 Respiratory: the patient does not display signs of respiratory distress, Respirations: normal, no use of accessory muscles, no retractions, labored breathing, is not present, Breath sounds: are clear throughout, no decreased breath sounds, no stridor, no wheezing. 10:25 Abdomen/GI: Inspection: distension, that is moderate, in the right lower quadrant and left lower quadrant, Bowel sounds: active, all quadrants, Palpation: soft, in all quadrants, moderate abdominal tenderness, in the right lower quadrant and left lower quadrant, rebound tenderness, is not appreciated, involuntary guarding, is not appreciated. 10:25 Back: pain, is absent, ROM is normal. 10:25 Skin: cellulitis, is not appreciated, no rash present. 10:25 Neuro: Orientation: to person, place \\T\\ time. Mentation: able to follow commands, slow to respond, Motor: moves all fours, general weakness with no focal deficits, Sensation: no obvious gross deficits. 10:27 ECG was reviewed by the Attending Physician. cp Vital Signs: 09:56 BP 130 / 95; Pulse 108; Resp 16; Temp 98.8(T); Pulse Ox 98% on R/A; Weight 57.15 kg; [place] Height 5 ft. 10 in. (177.80 cm); 10:00 BP 137 / 101; Pulse 112; Resp 19; Pulse Ox 98% on R/A; ww 10:30 BP 128 / 93; Pulse 101; Resp 19; Pulse Ox 98% on R/A; ww 11:30 BP 129 / 93; Pulse 107; Resp 21; Pulse Ox 98% on R/A; ww 12:01 BP 123 / 91; Pulse 100; Resp 15; Pulse Ox 99% on R/A; ww 14:17 BP 137 / 93; Pulse 118; Resp 16; Pulse Ox 100% on R/A; [place] 15:27 BP 133 / 92; Pulse 79; Resp 11; Pulse Ox 98% on R/A; ww 17:00 BP 166 / 102; Pulse 89; Resp 16; ww 18:24 BP 107 / 68; Pulse 94; Resp 13; Pulse Ox 97% on R/A; ww 09:56 Body Mass Index 18.08 (57.15 kg, 177.80 cm) [place] MDM: 10:26 Patient medically screened. 14:45 Data reviewed: vital signs, nurses notes, lab test result(s), EKG, radiologic studies, cp CT scan, plain films. 14:45 Differential diagnosis: metabolic disorder, bowel obstruction, diverticulitis, cp gastritis, pancreatitis, Pyelonephritis, Ureterolithiasis, urinary tract infection. Test interpretation: by ED physician or midlevel provider: ECG, plain radiologic studies. Physician consultation: Juliano Stephaniearcelia was called at 14:45, was contacted at 14:45, regarding admission, to the telemetry unit. patient's condition. 08/17 10:09 Order name: Basic Metabolic Panel; Complete Time: 11:44 08/17 11:45 Interpretation: Normal except: GLUC 112; BUN 25; GFR 63. 08/17 10:09 Order name: CBC with Diff; Complete Time: 11:44 08/17 12:26 Interpretation: Normal except: HGB 13.1; MPV 7.5. 08/17 10:09 Order name: LFT's; Complete Time: 11:44 cp 08/17 10:09 Order name: Magnesium; Complete Time: 11:44 cp 08/17 10:09 Order name: NT PRO-BNP; Complete Time: 11:44 cp 08/17 10:09 Order name: PT-INR; Complete Time: 11:44 cp 08/17 10:09 Order name: Troponin HS; Complete Time: 11:44 cp 08/17 12:26 Interpretation: Abnormal: Troponin HS 60.90. 08/17 10:09 Order name: XRAY Chest (1 view); Complete Time: 11:44 08/17 10:09 Order name: Lipase; Complete Time: 11:44 08/17 12:44 Order name: Urine Microscopic Only 08/17 14:19 Order name: Urine Dipstick-Ancillary; Complete Time: 14:31 EDCA 08/17 14:45 Order name: Urine Culture [facility] 08/17 17:28 Order name: COVID-19 SARS RT PCR (Document "Date of Onset" if Symptomatic) 08/17 18:32 Order name: SARS-COV-2 RT PCR [facility] 08/17 10:09 Order name: EKG; Complete Time: 10:10 08/17 10:09 Order name: Cardiac monitoring; Complete Time: 10:30 08/17 10:09 Order name: EKG - Nurse/Tech; Complete Time: 10:30 08/17 10:09 Order name: IV Saline Lock; Complete Time: 10:54 08/17 10:09 Order name: Labs collected and sent; Complete Time: 10:54 08/17 10:09 Order name: O2 Per Protocol; Complete Time: 10:30 08/17 10:09 Order name: O2 Sat Monitoring; Complete Time: 10:30 08/17 10:09 Order name: CT Head Brain wo Cont; Complete Time: 12:43 08/17 10:09 Order name: CT Abd/Pelvis - IV Contrast Only; Complete Time: 12:43 08/17 12:44 Order name: Carr; Complete Time: 14:11 08/17 12:44 Order name: Urine Dipstick-Ancillary (obtain specimen); Complete Time: 14:12 08/17 16:34 Order name: Diet Regular; Complete Time: 16:34 [place] EC: Rate is 102 beats/min. Rhythm is regular. [place] interval is normal. QRS interval is cp normal. QT interval is normal. T waves are Inverted in lead aVR. Interpreted by me. Reviewed by me. Administered Medications: 12:15 Not Given (Patient Refused): morphine 2 mg IVP once; (PAIN>8) RASS on ADMN: Combtv4, ww Very Agttd3, Agttd2, Rstlss1, AlertClm0, Drwsy-1, LtSdtn-2, ModSdtn-3, DpSdtn-4, UnArsble-5 x2 12:15 Drug: NS 0.9% 250 ml Route: IV; Rate: bolus; Site: left antecubital; ww 16:29 Follow up: IV Status: Completed infusion [place] 12:31 Drug: NS 0.9% 250 ml Route: IV; Rate: 75 ml/hr; Site: left antecubital; ww 16:29 Follow up: IV Status: Completed infusion [place] 15:06 Drug: Rocephin - (cefTRIAXone) 1 grams Route: IVPB; Infused Over: 30 mins; Site: left [place] antecubital; 16:29 Follow up: IV Status: Completed infusion [place] Disposition: 15:00 Chart complete. cp 08/18 07:29 Co-signature as Attending Physician, Roc Menjivar MD I agree with the assessment and kdr plan of care. Disposition Summary: 08/17/21 14:46 Hospitalization Ordered Hospitalization Status: Inpatient Admission cp Provider: Juliano Dueñas cp Condition: Stable cp Problem: new cp Symptoms: have improved cp Bed/Room Type: Standard cp Location: Telemetry/MedSurg (Inpatient)(08/17/21 20:10) Room Assignment: 201(08/17/21 20:10) Diagnosis - Retention of urine, unspecified cp Forms: - Medication Reconciliation Form cp - SBAR form cp Signatures: Dispatcher [employer] EDRajwinder Corona RN RN mw Rittger, Kevin, MD MD kdr Smirch, Shelby, RN RN ss Page, Corey, PA PA cp Elke Robbins RN RN Ophelia Gordillo RN RN Corrections: (The following items were deleted from the chart) 08/17 19:26 14:46 Telemetry/MedSurg (Inpatient) cp ss 19:26 14:46 cp ss 20:10 19:26 [facility] ER HOLD ss 20:10 19:26 ERHOLD- ss 08/18 19:10 08/17 12:15 This 76 yrs old Male presents to ER via EMS with complaints of Weakness. cp cp 08/18 19:11 10:15 This 76 yrs old Male presents to ER via EMS with complaints of Weakness. cp cp
[2021-08-17] MEDS ORDERED: NA CHLORIDE 0.9% 50 ML ONE (14:59)
[2021-08-17] MEDS ORDERED: CEFTRIAXONE 1000 MG/VIAL ONE (14:59)
--- NOTE | 2021-08-17 16:23 | P.PN ---
Subjective Date of Service: 08/17/21 Chief Complaint: Generalized weakness 76-year-old gentleman with a history of Parkinson's disease was brought to the emergency department due to a complaint of generalized weakness and reduced oral intake. Family concerned that patient might be dehydrated. Patient also reported generalized bodily pains, especially mid back pain. His troponin mildly elevated in the ED. EKG showed no acute changes. CT abdomen pelvis did demonstrate urinary retention with bladder distention, fecal retention and small bowel dilatation. No fever. UA suggest the presence of UTI. Carr catheter inserted, patient hospitalized for further management. Review of Systems Other: Patient denied any abdominal pain, no diarrhea, no nausea or vomiting. Except as documented, all other systems reviewed and negative. Physical Examination - Physical Exam General: Alert, In no apparent distress HEENT: Atraumatic, Normocephalic, Mucous membr. moist/pink, EOMI, Sclerae nonicteric Neck: Supple, JVD not distended Respiratory: Clear to auscultation bilaterally, Normal air movement Cardiovascular: Regular rate/rhythm, Normal S1 S2, No murmurs, Edema (1+ bilateral lower extremity pitting edema) Capillary refill: <2 Seconds Gastrointestinal: Normal bowel sounds, Soft and benign, No tenderness, Distended (Protuberant) Musculoskeletal: No swelling, No tenderness Integumentary: No rashes, No cyanosis Lymphatics: No axilla or inguinal lymphadenopathy - Studies Laboratory Data (last 24 hrs) 08/17/21 10:44: PT 12.3, INR 1.07 08/17/21 10:44: WBC 5.10, Hgb 13.1 L, Hct 40.1, Plt Count 270 08/17/21 10:44: Sodium 141, Potassium 3.9, BUN 25 H, Creatinine 1.12, Glucose 112 H, Magnesium 2.7 H, Total Bilirubin 0.3, AST 16, ALT 14, Alkaline Phosphatase 71, Lipase 102 Assessment And Plan - Current Problems (Diagnosis) (1) Acute urinary retention Current Visit: Yes Status: Acute (2) Bladder distention Current Visit: Yes Status: Acute (3) Bilateral hydronephrosis Current Visit: Yes Status: Acute (4) Functional constipation Current Visit: Yes Status: Acute (5) Partial small bowel obstruction Current Visit: Yes Status: Acute (6) Parkinsons disease Current Visit: Yes Status: Acute (7) BPH (benign prostatic hyperplasia) Current Visit: No Status: Acute (8) Severe protein-calorie malnutrition Current Visit: No Status: Acute (9) UTI (urinary tract infection) Current Visit: Yes Status: Acute - Plan Admit patient to the medical floor Carr catheter inserted in the ED to decompress the bladder. Start IV Rocephin for UTI. Follow urine culture. Obtain blood cultures. Monitor renal function. We will treat constipation with laxatives and stool softeners. Trial of Dulcolax suppository and if unsuccessful an enema. We will schedule senna and MiraLAX. Continue home medications for Parkinson's disease. Tamsulosin for BPH. Continue Eliquis for A. fib anticoagulation. PT consult. Supportive measures.
--- NOTE | 2021-08-17 18:24 | P.HP ---
Certification for Inpatient Patient admitted to: Inpatient With expected LOS: >2 Midnights Practitioner: I am a practitioner with admitting privileges, knowledge of patient current condition, hospital course, and medical plan of care. Services: Services provided to patient in accordance with Admission requirements found in Title 42 Section 412.3 of the Code of Federal Regulations Patient History Date of Service: 08/17/21 Reason for admission: Generalized weakness History of Present Illness: 76-year-old gentleman with a history of Parkinson's disease was brought to the emergency department due to a complaint of generalized weakness and reduced oral intake. Family concerned that patient might be dehydrated. Patient also reported generalized bodily pains, especially mid back pain. His troponin mildly elevated in the ED. EKG showed no acute changes. CT abdomen pelvis did demonstrate urinary retention with bladder distention, fecal retention and small bowel dilatation. No fever. UA suggest the presence of UTI. Carr catheter inserted, patient hospitalized for further management. Allergies No Known Allergies Allergy (Unverified 04/16/21 14:09) Home Medications: Amantadine HCl [Amantadine] 100 mg PO BID 04/16/21 Carbidopa/Levodopa [Carbidopa-Levodopa 25-100 Tab] 25 - 100 mg PO 04/16/21 Ciprofloxacin HCl 250 mg PO Q12HR 04/16/21 Levothyroxine Sodium [Levothyroxine] 175 mcg PO DAILY 04/16/21 Linaclotide [Linzess] 145 mcg PO DAILY 04/16/21 Rasagiline Mesylate 1 mg PO DAILY 04/16/21 Tamsulosin [Flomax*] 0.4 mg PO DAILY 04/16/21 Apixaban [Eliquis] 5 mg PO BID 30 Days #60 tablet 04/18/21 Metoprolol Tartrate [Lopressor*] 25 mg PO BID 30 Days #60 tab 04/18/21 - Past Medical/Surgical History -: Parkinson's disease -: BPH -: Hypothyroidism -: None - Family History Mother -: Heart disease - Social History Alcohol use: Yes CD- Drugs: No Review of Systems Other: Patient denied any abdominal pain, no diarrhea, no nausea or vomiting. Except as documented, all other systems reviewed and negative. Physical Examination - Physical Exam General: Alert, In no apparent distress, Oriented x3, Other (Slow to respond) HEENT: Atraumatic, PERRLA, Mucous membr. moist/pink, EOMI, Sclerae nonicteric Neck: Supple, JVD not distended Respiratory: Clear to auscultation bilaterally, Normal air movement Cardiovascular: Regular rate/rhythm, Normal S1 S2, No murmurs, Edema (1+ bilateral lower extremity pitting edema) Capillary refill: <2 Seconds Gastrointestinal: Normal bowel sounds, Soft and benign, No tenderness, Distended (Protuberant abdomen) Musculoskeletal: No swelling, No tenderness Integumentary: No rashes, No erythema, No cyanosis Neurological: Normal speech, Normal strength at 5/5 x4 extr, Cranial nerves 3-12 intact, Other (Slow to respond) Lymphatics: No axilla or inguinal lymphadenopathy - Studies Laboratory Data (last 24 hrs) 08/17/21 10:44: PT 12.3, INR 1.07 08/17/21 10:44: WBC 5.10, Hgb 13.1 L, Hct 40.1, Plt Count 270 08/17/21 10:44: Sodium 141, Potassium 3.9, BUN 25 H, Creatinine 1.12, Glucose 1 12 H, Magnesium 2.7 H, Total Bilirubin 0.3, AST 16, ALT 14, Alkaline Phosphatase 71, Lipase 102 Assessment and Plan - Problems (Diagnosis) (1) Acute urinary retention Current Visit: Yes Status: Acute (2) Bladder distention Current Visit: Yes Status: Acute (3) Bilateral hydronephrosis Current Visit: Yes Status: Acute (4) Functional constipation Current Visit: Yes Status: Acute (5) Partial small bowel obstruction Current Visit: Yes Status: Acute (6) Parkinsons disease Current Visit: Yes Status: Acute (7) BPH (benign prostatic hyperplasia) Current Visit: No Status: Acute (8) Severe protein-calorie malnutrition Current Visit: No Status: Acute (9) UTI (urinary tract infection) Current Visit: Yes Status: Acute - Plan Admit patient to the medical floor Carr catheter inserted in the ED to decompress the bladder. Start IV Rocephin for UTI. Follow urine culture. Obtain blood cultures. Monitor renal function. We will treat constipation with laxatives and stool softeners. Trial of Dulcolax suppository and if unsuccessful an enema. We will schedule senna and MiraLAX. Continue home medications for Parkinson's disease. Tamsulosin for BPH. Continue Eliquis for A. fib anticoagulation. PT consult. Supportive measures. - Advance Directives Does patient have a Living Will: No Does patient have a Durable POA for Healthcare: No
[2021-08-17] MEDS ORDERED: ONDANSETRON 4 MG/2 ML VIAL IV PRN (22:12)
[2021-08-17] MEDS ORDERED: BISACODYL 10 MG RECTAL SUPP PR ONE (22:12)
[2021-08-17] MEDS ORDERED: ACETAMINOPHEN 500 MG TAB PO PRN (22:12)
[2021-08-17 22:28] VITALS: BMI 19.2
[2021-08-17] MEDS: SENOSIDES 8.6 MG TAB PO SCH (22:49)
[2021-08-17] MEDS: NA CHLORIDE 0.9% 1,000 ML IV SCH (22:49)
[2021-08-17] MEDS: POLYETHYL GLY 3350 17 GM/DOSE PO SCH (22:49)
[2021-08-17] MEDS ORDERED: ENOXAPARIN 100 MG/ML SYR SQ SCH (23:36)
[2021-08-18 03:12] LABS: Absolute Lymphocytes (CBC) 1.1 K/uL (0.7-4.9); Hematocrit 38.6 % (39.6-49.0); Lymphocytes % 18.4 % (15.3-44.8); MPV 7.8 fL (7.6-11.3)
[2021-08-18 03:36] LABS: Magnesium 2.4 mg/dL (1.8-2.4); Phosphorus 3.3 mg/dL (2.5-4.9); Potassium 3.6 mmol/L (3.5-5.1); Thyroid Stimulating Hormone 3.5 uIU/mL (0.360-3.740)
[2021-08-18] MEDS ORDERED: INFLUENZA VACCINE (for 6+ mo) 0.5 ML DOSE IMVAC ONE (08:00)
[2021-08-18] MEDS: SENOSIDES 8.6 MG TAB PO SCH ×2 (08:46→20:41)
[2021-08-18] MEDS: POLYETHYL GLY 3350 17 GM/DOSE PO SCH ×2 (08:46→20:40)
[2021-08-18] MEDS: CEFTRIAXONE 1,000 MG in NA CHLORIDE 0.9% 50 ML IVPB SCH (08:46)
[2021-08-18] MEDS ORDERED: TAMSULOSIN 0.4 MG SR CAP PO SCH (09:00)
[2021-08-18] MEDS ORDERED: POTASSIUM CL SA 10 MEQ TAB PO ONE (09:00)
[2021-08-18] MEDS ORDERED: RASAGILINE MESYLATE 1 MG PO SCH (09:00)
[2021-08-18] MEDS ORDERED: ENOXAPARIN 40 MG/0.4 ML SQ SCH (09:00)
[2021-08-18] MEDS ORDERED: HOME MED 1 EA UNK (Linaclotide [Linzess] 145 MCG Capsule) PO SCH (09:00)
[2021-08-18] MEDS: CARBIDOPA/LEVODOPA 25/100 TAB PO SCH ×4 (10:05→20:59)
[2021-08-18] MEDS: NA CHLORIDE 0.9% 1,000 ML IV SCH (11:32)
--- NOTE | 2021-08-18 13:57 | P.PN ---
Subjective Date of Service: 08/18/21 Chief Complaint: Generalized weakness No new complaints. Patient remained awake and alert. He is generally weak. Physical Examination - Vital Signs Temperature: 97.9 F Blood Pressure: 93/63 Pulse: 80 Respirations: 18 Pulse Ox (%): 99 - Physical Exam General: Alert, In no apparent distress, Oriented x3 HEENT: Mucous membr. moist/pink Neck: JVD not distended Respiratory: Clear to auscultation bilaterally, Normal air movement Cardiovascular: Edema (Extremities) Gastrointestinal: Normal bowel sounds, Soft and benign, Non-distended Musculoskeletal: No swelling Integumentary: No rashes Neurological: Normal strength at 5/5 x4 extr Assessment And Plan - Current Problems (Diagnosis) (1) Acute urinary retention Current Visit: Yes Status: Acute (2) Bladder distention Current Visit: Yes Status: Acute (3) Bilateral hydronephrosis Current Visit: Yes Status: Acute (4) Functional constipation Current Visit: Yes Status: Acute (5) Partial small bowel obstruction Current Visit: Yes Status: Acute (6) Parkinsons disease Current Visit: Yes Status: Acute (7) BPH (benign prostatic hyperplasia) Current Visit: No Status: Acute (8) Severe protein-calorie malnutrition Current Visit: No Status: Acute (9) UTI (urinary tract infection) Current Visit: Yes Status: Acute - Plan Maintain Carr catheter for urinary retention. Continue IV Rocephin for UTI. Follow urine culture. Blood cultures: No growth to date Renal function is stable. Continue laxatives and stool softeners. Scheduled senna and MiraLAX. Continue home medications for Parkinson's disease. Tamsulosin for BPH. Continue Eliquis for A. fib anticoagulation. Continue PT
[2021-08-18] MEDS: TAMSULOSIN 0.4 MG SR CAP PO SCH (17:00)
[2021-08-19] MEDS: NA CHLORIDE 0.9% 1,000 ML IV SCH ×2 (04:00→17:40)
[2021-08-19 05:56] LABS: Absolute Lymphocytes (CBC) 0.9 K/uL (0.7-4.9); Hematocrit 36.2 % (39.6-49.0); Lymphocytes % 9.7 % (15.3-44.8); MPV 7.7 fL (7.6-11.3); RBC Red Blood Cell Count 4.09 M/uL (4.33-5.43)
[2021-08-19 05:59] LABS: BUN Blood Urea Nitrogen 15 mg/dL (7-18); Bicarbonate 28 mmol/L (21-32); Glucose Level 111 mg/dL (74-106); Potassium 3.6 mmol/L (3.5-5.1); Sodium Level 138 mmol/L (136-145)
[2021-08-19] MEDS: LEVOTHYROXINE SOD 0.1 MG TAB PO SCH (05:59)
[2021-08-19] MEDS: LEVOTHYROXINE SOD 0.075 MG TAB PO SCH (05:59)
[2021-08-19] MEDS: CARBIDOPA/LEVODOPA 25/100 TAB PO SCH ×6 (06:05→21:21)
[2021-08-19] MEDS: CEFTRIAXONE 1,000 MG in NA CHLORIDE 0.9% 50 ML IVPB SCH (08:04)
[2021-08-19] MEDS: SENOSIDES 8.6 MG TAB PO SCH ×2 (08:06→21:18)
[2021-08-19] MEDS: POLYETHYL GLY 3350 17 GM/DOSE PO SCH ×2 (08:06→21:18)
[2021-08-19] MEDS: TAMSULOSIN 0.4 MG SR CAP PO SCH (08:06)
[2021-08-19] MEDS ORDERED: POTASSIUM CL SA 10 MEQ TAB PO ONE (09:00)
--- NOTE | 2021-08-19 11:52 | P.PN ---
Subjective Date of Service: 08/19/21 Chief Complaint: Generalized weakness Patient is drowsy but easily arousable today He had a bowel movement yesterday. No recorded fever. Physical Examination - Vital Signs Temperature: 97.9 F Blood Pressure: 81/55 Pulse: 94 Respirations: 16 Pulse Ox (%): 94 Assessment And Plan - Current Problems (Diagnosis) (1) Acute urinary retention Current Visit: Yes Status: Acute (2) Bladder distention Current Visit: Yes Status: Acute (3) Bilateral hydronephrosis Current Visit: Yes Status: Acute (4) Functional constipation Current Visit: Yes Status: Acute (5) Partial small bowel obstruction Current Visit: Yes Status: Acute (6) Parkinsons disease Current Visit: Yes Status: Acute (7) BPH (benign prostatic hyperplasia) Current Visit: No Status: Acute (8) Severe protein-calorie malnutrition Current Visit: No Status: Acute (9) UTI (urinary tract infection) Current Visit: Yes Status: Acute - Plan Physical examination General: In no apparent distress, Oriented x3 Neck: JVD not distended Respiratory: Clear to auscultation bilaterally, Normal air movement Cardiovascular: Edema (Extremities) Gastrointestinal: Normal bowel sounds, Soft and benign, Non-distended Musculoskeletal: No swelling Integumentary: No rashes Neurological: Normal strength at 5/5 x4 extr Plan: Maintain Carr catheter for urinary retention. Continue IV Rocephin for UTI. Urine culture growing strep B Follow urine culture. Renal function is stable. Continue laxatives and stool softeners. Scheduled senna and MiraLAX. Continue home medications for Parkinson's disease. Tamsulosin for BPH. Continue Eliquis for A. fib anticoagulation. Continue PT. Disposition: Inpatient rehab once insurance approves it.
--- NOTE | 2021-08-19 20:03 | CON ---
Date of Consultation: 08/18/2021 Reason For Consultation: Borderline elevated troponin. History Of Present Illness: This is a 76-year-old male with advanced Parkinson disease with very dep ressed mobility, brought into the emergency department due to generalized weakness and reduced oral i ntake. Patient is found to have UTI. Patient is on anticoagulation for atrial fibrillation and foun d to have borderline elevated troponin on routine blood work. Patient declined having any chest pain at the time of evaluation; however, he admits to chest pain on and off, not particularly related to exertion as the patient is not active due to severe Parkinson. Past Medical History: Parkinson disease, enlarged prostate, hypothyroidism. Medications: Refer reconciliation sheet for detailed list. Allergies: SULFA. Family History: No mature coronary artery disease or cancer. Social History: Does not smoke or drink. Does not use any drugs. Review of Systems: All systems reviewed and they were negative except for mentioned in HPI. Physical Examination: Vital Signs: Reviewed. Head and Neck: Pupils are equal, reactive to light. Intact eye movements. No JVD. No cervical lym phadenopathy. Neck is supple. Thyroid is not enlarged. Lungs: Clear to auscultation bilaterally. No rhonchi, rales, or crackles. No accessory muscle use. Heart: Regular rate and rhythm. No extra sounds. Abdomen: Soft, nontender. Bowel sounds positive. No organomegaly. No masses or hernia. No rigidi ty or rebound. Extremities: No edema, clubbing, cyanosis. Intact pulses. SKIN: No rashes. Neurologic: Alert, awake, oriented x3 with no focal deficits. He has Parkinson features. Lymph Nodes: No cervical or axillary lymphadenopathy. Investigations: Troponin peaked at 321 and his creatinine is 1.02. Assessment And Recommendation: Elevated troponin. No active symptoms. Could be demand due to the c urrent infection. I recommend to obtain Lexiscan nuclear stress test to further evaluate, and based on that, further recommendations will follow. I will discuss with the patient and the patient's fami ly before any invasive testing to be done due to overall poor quality, condition and due to advanced Parkinson's stage. Meanwhile, put him on aspirin 81 mg daily and trend troponin further. I will fol low the patient with you. /MODL Voice ID: [id number] Report ID: [id number]
[2021-08-20] MEDS: CARBIDOPA/LEVODOPA 25/100 TAB PO SCH ×9 (00:01→23:43)
[2021-08-20] MEDS: NA CHLORIDE 0.9% 1,000 ML IV SCH (05:48)
[2021-08-20] MEDS: LEVOTHYROXINE SOD 0.075 MG TAB PO SCH (05:48)
[2021-08-20] MEDS: LEVOTHYROXINE SOD 0.1 MG TAB PO SCH (05:48)
[2021-08-20 06:15] LABS: BUN Blood Urea Nitrogen 17 mg/dL (7-18); Bicarbonate 30 mmol/L (21-32); Glucose Level 133 mg/dL (74-106); Potassium 3.5 mmol/L (3.5-5.1); Sodium Level 139 mmol/L (136-145)
[2021-08-20] MEDS: TAMSULOSIN 0.4 MG SR CAP PO SCH (09:00)
[2021-08-20] MEDS ORDERED: POTASSIUM CL SA 10 MEQ TAB PO ONE (09:00)
[2021-08-20] MEDS: POLYETHYL GLY 3350 17 GM/DOSE PO SCH ×2 (09:34→20:18)
[2021-08-20] MEDS: SENOSIDES 8.6 MG TAB PO SCH ×2 (09:35→20:19)
[2021-08-20] MEDS: CEFTRIAXONE 1,000 MG in NA CHLORIDE 0.9% 50 ML IVPB SCH (09:35)
[2021-08-20 10:29] VITALS: O2SAT 98
--- NOTE | 2021-08-20 11:50 | P.PN ---
Subjective Date of Service: 08/20/21 Chief Complaint: Generalized weakness Patient is awake and alert. He is complaining of constipation. Physical Examination - Vital Signs Temperature: 97.4 F Blood Pressure: 111/73 Pulse: 74 Respirations: 20 Pulse Ox (%): 74 - Physical Exam General: Alert, In no apparent distress, Oriented x3 HEENT: Mucous membr. moist/pink, Sclerae nonicteric Neck: JVD not distended Respiratory: Clear to auscultation bilaterally, Normal air movement Cardiovascular: Regular rate/rhythm, Normal S1 S2, Edema (Lower extremities) Gastrointestinal: Soft and benign, Non-distended, No tenderness Musculoskeletal: No swelling Integumentary: No rashes Neurological: Normal strength at 5/5 x4 extr Assessment And Plan - Current Problems (Diagnosis) (1) Acute urinary retention Current Visit: Yes Status: Acute (2) Bladder distention Current Visit: Yes Status: Acute (3) Bilateral hydronephrosis Current Visit: Yes Status: Acute (4) Functional constipation Current Visit: Yes Status: Acute (5) Partial small bowel obstruction Current Visit: Yes Status: Acute (6) Parkinsons disease Current Visit: Yes Status: Acute (7) BPH (benign prostatic hyperplasia) Current Visit: No Status: Acute (8) Severe protein-calorie malnutrition Current Visit: No Status: Acute (9) UTI (urinary tract infection) Current Visit: Yes Status: Acute - Plan Physical examination General: In no apparent distress, Oriented x3 Neck: JVD not distended Respiratory: Clear to auscultation bilaterally, Normal air movement Cardiovascular: Edema (Extremities) Gastrointestinal: Normal bowel sounds, Soft and benign, Non-distended Musculoskeletal: No swelling Integumentary: No rashes Neurological: Normal strength at 5/5 x4 extr Plan: Maintain Carr catheter for urinary retention. Continue IV Rocephin for UTI. Urine culture growing strep B Renal function is stable. Continue laxatives and stool softeners. Scheduled senna and MiraLAX. Trial of fleets mineral oil enema today. Continue home medications for Parkinson's disease. Tamsulosin for BPH. Continue Eliquis for A. fib anticoagulation. Continue PT. Disposition: Inpatient rehab once insurance approves it.
[2021-08-20] MEDS ORDERED: MINERAL OIL ENEMA 135 ML BTL PR SCH (12:00)
[2021-08-21] MEDS: CARBIDOPA/LEVODOPA 25/100 TAB PO SCH ×8 (02:59→23:33)
[2021-08-21] MEDS: LEVOTHYROXINE SOD 0.1 MG TAB PO SCH (05:30)
[2021-08-21] MEDS: LEVOTHYROXINE SOD 0.075 MG TAB PO SCH (05:30)
[2021-08-21 06:27] LABS: BUN Blood Urea Nitrogen 16 mg/dL (7-18); Bicarbonate 29 mmol/L (21-32); Glucose Level 113 mg/dL (74-106); Potassium 3.7 mmol/L (3.5-5.1); Sodium Level 140 mmol/L (136-145)
[2021-08-21] MEDS: TAMSULOSIN 0.4 MG SR CAP PO SCH (09:00)
[2021-08-21] MEDS ORDERED: POTASSIUM CL SA 10 MEQ TAB PO ONE (09:00)
[2021-08-21] MEDS: SENOSIDES 8.6 MG TAB PO SCH ×2 (09:18→20:37)
[2021-08-21] MEDS: CEFTRIAXONE 1,000 MG in NA CHLORIDE 0.9% 50 ML IVPB SCH (09:19)
[2021-08-21] MEDS: POLYETHYL GLY 3350 17 GM/DOSE PO SCH ×2 (09:19→20:37)
--- NOTE | 2021-08-21 11:04 | P.PN ---
Subjective Date of Service: 08/21/21 Chief Complaint: Generalized weakness Patient report only small bowel movement from the enema given yesterday. He still feels like he needs to move his bowel. He feels his urinary retention is as a result of constipation and would like the Carr catheter out before discharge. He is complaining of dizziness which he attributes to the tamsulosin and therefore did not do much with physical therapy today. He is declining rehab and wants to go home on discharge. Physical Examination - Vital Signs Temperature: 97.9 F Blood Pressure: 101/69 Pulse: 78 Respirations: 18 Pulse Ox (%): 96 - Studies Microbiology Data (last 24 hrs): 08/17/21 14:05 Clean Catch Urine [place] Count - Final BETWEEN 10,000 & 100,000 CFU/ML 08/17/21 14:05 Clean Catch Urine - Final Enterococcus Faecalis Assessment And Plan - Current Problems (Diagnosis) (1) Acute urinary retention Current Visit: Yes Status: Acute (2) Bladder distention Current Visit: Yes Status: Acute (3) Bilateral hydronephrosis Current Visit: Yes Status: Acute (4) Functional constipation Current Visit: Yes Status: Acute (5) Partial small bowel obstruction Current Visit: Yes Status: Acute (6) Parkinsons disease Current Visit: Yes Status: Acute (7) BPH (benign prostatic hyperplasia) Current Visit: No Status: Acute (8) Severe protein-calorie malnutrition Current Visit: No Status: Acute (9) UTI (urinary tract infection) Current Visit: Yes Status: Acute - Plan Physical examination General: In no apparent distress, Oriented x3 Neck: JVD not distended Respiratory: Clear to auscultation bilaterally, Normal air movement Cardiovascular: Edema (Extremities) Gastrointestinal: Normal bowel sounds, Soft and benign, Non-distended Musculoskeletal: No swelling Integumentary: No rashes Neurological: Normal strength at 5/5 x4 extr Plan: Patient wanted a Carr catheter out. Will obtain KUB to assess for stool burden and treat aggressively for constipation before removing the Carr catheter. Continue IV Rocephin for UTI. Urine culture growing strep B. Need 5 days of antibiotics. Renal function is stable. Continue laxatives and stool softeners. Consider mag citrate if patient's still has high stool burden. Scheduled senna and MiraLAX. Continue home medications for Parkinson's disease. Tamsulosin for BPH. Continue Eliquis for A. fib anticoagulation. Continue PT. Disposition: Patient would like to go home on discharge. He is declining rehab.
--- NOTE | 2021-08-21 13:36 | RAD REPORT ---
EXAM DESCRIPTION: RAD - Abdomen 1 View (KUB) - 08/21/2021 1:21 pm CLINICAL HISTORY: Follow up constipation COMPARISON: Abdomen 1 View (KUB) dated 04/03/2021; Abdomen Pelvis W Contrast dated 08/17/2021 FINDINGS: Nonobstructive bowel gas pattern. No acute osseous abnormality.Visualized lungs are unrema rkable.No abnormal calcifications. Mild decrease in rectal stool burden. Other formed stool noted wit hin the colon. IMPRESSION: Nonobstructive bowel gas pattern. Mild decrease in rectal stool burden. Scattered mild t o moderate stool throughout the colon.
[2021-08-21] MEDS: MAGNESIUM CITRATE 300 ML BOT PO SCH ×2 (20:00)
[2021-08-22] MEDS: CARBIDOPA/LEVODOPA 25/100 TAB PO SCH ×7 (03:00→20:59)
[2021-08-22] MEDS: LEVOTHYROXINE SOD 0.075 MG TAB PO SCH (05:20)
[2021-08-22] MEDS: LEVOTHYROXINE SOD 0.1 MG TAB PO SCH (05:21)
[2021-08-22 05:56] LABS: Absolute Lymphocytes (CBC) 1.2 K/uL (0.7-4.9); Hematocrit 40.8 % (39.6-49.0); Lymphocytes % 15.8 % (15.3-44.8); MPV 7.9 fL (7.6-11.3); RBC Red Blood Cell Count 4.59 M/uL (4.33-5.43)
[2021-08-22 06:22] LABS: BUN Blood Urea Nitrogen 17 mg/dL (7-18); Bicarbonate 29 mmol/L (21-32); Glucose Level 100 mg/dL (74-106); Sodium Level 138 mmol/L (136-145)
--- NOTE | 2021-08-22 06:23 | P.PN ---
Date of Service: 08/22/21 Subjective: No acute events overnight, continues to improve Small bowel movements overnight Continues with Carr catheter Wants to go home today, needs voiding trial ROS: 10 point ROS as noted above, otherwise negative Physical exam GEN: Alert, oriented, NAD HEENT: Normal conjunctiva, sclera anicteric CV: Regular rate and rhythm Pulm: Nonlabored respiration on room air ABD: Soft, nontender, nondistended Neuro: Normal speech, normal affect Problem List Acute urinary retention Bladder distention Bilateral hydronephrosis Functional constipation Partial small bowel obstruction, resolved Parkinson's disease BPH Severe protein calorie malnutrition UTIEnterococcus faecalis Patient wanted Carr catheter out - removed this morning ~1130am, has not voided yet Patient to be started pending voiding trial by 6 PM today, if unable to void, check bladder scan, if greater than 250 mL, straight cath x1. If unable to void after that we will need placement of Carr catheter. Small BMs overnight, moderate BM this morning Continue IV Rocephin for UTI. Urine culture growing strep B. Need 5 days of antibiotics. Renal function is stable. Continue laxatives and stool softeners. Consider mag citrate if patient's still has high stool burden. All scheduled senna and MiraLAX. Continue home medications for Parkinson's disease. Tamsulosin for BPH. Continue Eliquis for A. fib anticoagulation. Continue PT. Disposition: Patient would like to go home on discharge. Declined rehab. Anticipate DC tomorrow Time Spent Managing Pts Care (In Minutes): 35
[2021-08-22] MEDS: POLYETHYL GLY 3350 17 GM/DOSE PO SCH ×2 (08:29→20:58)
[2021-08-22] MEDS: CEFTRIAXONE 1,000 MG in NA CHLORIDE 0.9% 50 ML IVPB SCH (08:29)
[2021-08-22] MEDS: SENOSIDES 8.6 MG TAB PO SCH ×2 (08:29→20:58)
[2021-08-22] MEDS: TAMSULOSIN 0.4 MG SR CAP PO SCH (08:30)
--- NOTE | 2021-08-22 13:28 | P.DS ---
Admission Date: 08/17/21 Discharge Date: 08/22/21 Reason for Admission: Generalized weakness Vital Signs/Physical Exam: Temp Pulse Resp BP Pulse Ox 97.8 F 83 16 147/80 H 95 08/22/21 12:00 08/22/21 12:00 08/22/21 12:00 08/22/21 12:00 08/22/21 12:00 Laboratory Data at Discharge: WBC 7.50 K/uL (4.3-10.9) D 08/22/21 05:04 Hgb 13.2 g/dL (13.6-17.9) L 08/22/21 05:04 Hct 40.8 % (39.6-49.0) 08/22/21 05:04 Plt Count 268 K/uL (152-406) 08/22/21 05:04 PT 12.3 SECONDS (9.5-12.5) 08/17/21 10:44 INR 1.07 08/17/21 10:44 Sodium 138 mmol/L (136-145) 08/22/21 05:04 Potassium 4.0 mmol/L (3.5-5.1) 08/22/21 05:04 BUN 17 mg/dL (7-18) 08/22/21 05:04 Creatinine 0.77 mg/dL (0.55-1.3) 08/22/21 05:04 Glucose 100 mg/dL (74-106) 08/22/21 05:04 Phosphorus 3.3 mg/dL (2.5-4.9) 08/18/21 02:59 Magnesium 2.4 mg/dL (1.8-2.4) 08/18/21 02:59 Total Bilirubin 0.3 mg/dL (0.2-1.0) 08/17/21 10:44 AST 16 U/L (15-37) 08/17/21 10:44 ALT 14 U/L (12-78) 08/17/21 10:44 Alkaline Phosphatase 71 U/L (45-117) 08/17/21 10:44 Lipase 102 U/L (73-393) 08/17/21 10:44 Home Medications: Carbidopa/Levodopa [Carbidopa-Levodopa 25-100 Tab] 2 tab PO QID 04/16/21 Levothyroxine Sodium [Levothyroxine] 125 mcg PO DAILY 04/16/21 Followup: NONE,NONE [Primary Care Provider] -
[2021-08-22] MEDS: MAGNESIUM CITRATE 300 ML BOT PO SCH (20:00)
[2021-08-23] MEDS: CARBIDOPA/LEVODOPA 25/100 TAB PO SCH ×4 (00:31→09:05)
[2021-08-23 05:44] LABS: BUN Blood Urea Nitrogen 23 mg/dL (7-18); Bicarbonate 31 mmol/L (21-32); Glucose Level 107 mg/dL (74-106); Potassium 3.7 mmol/L (3.5-5.1); Sodium Level 137 mmol/L (136-145)
[2021-08-23] MEDS: LEVOTHYROXINE SOD 0.075 MG TAB PO SCH (06:33)
[2021-08-23] MEDS: LEVOTHYROXINE SOD 0.1 MG TAB PO SCH (06:33)
[2021-08-23 08:50] VITALS: BP 124/76; TEMP 97.6
--- NOTE | 2021-08-23 15:58 | P.DS ---
Admission Date: 08/17/21 Discharge Date: 08/23/21 Disposition: DC HOME/HOME HEALTH CARE Discharge Condition: GOOD Reason for Admission: Generalized weakness Consultations: Cardiology Procedures: Problem List UTIEnterococcus faecalis Acute urinary retention / Bladder distention Functional constipation Partial small bowel obstruction, resolved Parkinson's disease BPH Severe protein calorie malnutrition Brief History of Present Illness: 76-year-old gentleman with a history of Parkinson's disease was brought to the emergency department due to a complaint of generalized weakness and reduced oral intake. Family concerned that patient might be dehydrated. Patient also reported generalized bodily pains, especially mid back pain. His troponin mildly elevated in the ED. EKG showed no acute changes. CT abdomen pelvis did demonstrate urinary retention with bladder distention, fecal retention and small bowel dilatation. No fever. UA suggest the presence of UTI. Carr catheter inserted, patient hospitalized for further management. Hospital Course: Patient was found to have a urinary tract infection secondary to Enterococcus faecalis. Patient received 5 days of IV Rocephin. He was also noted to have urinary retention on admission and a Carr catheter was placed. Urinary retention was felt secondary to infection and possibly due to moderate amount of stool burden/constipation. Patient given stool softeners and laxatives and had a large bowel movement. Voiding trial was attempted and failed x2 on 08/22 with Carr catheter being reinserted overnight. Patient reported 1 prior episode of urinary retention last year, was evaluated by Dr. Hyman in the office. Patient was otherwise doing well and requested to be discharged home. Discharge home with home health, with Carr catheter. Advised to follow-up with urology in the next 1-2 weeks. Follow-up with PCP within 1 week. Prescribed 5 more days of antibiotics, on Augmentin. Vital Signs/Physical Exam: Physical exam GEN: Alert, oriented, NAD HEENT: Normal conjunctiva, sclera anicteric CV: Regular rate and rhythm Pulm: Nonlabored respirations on room air ABD: Soft, nontender, nondistended Neuro: Normal speech, normal affect, +Parkinsonian features Carr catheter in place Temp Pulse Resp BP Pulse Ox 97.6 F 83 16 124/76 95 08/23/21 08:00 08/23/21 08:00 08/23/21 08:00 08/23/21 08:00 08/23/21 08:00 Laboratory Data at Discharge: WBC 7.50 K/uL (4.3-10.9) D 08/22/21 05:04 Hgb 13.2 g/dL (13.6-17.9) L 08/22/21 05:04 Hct 40.8 % (39.6-49.0) 08/22/21 05:04 Plt Count 268 K/uL (152-406) 08/22/21 05:04 PT 12.3 SECONDS (9.5-12.5) 08/17/21 10:44 INR 1.07 08/17/21 10:44 Sodium 137 mmol/L (136-145) 08/23/21 05:12 Potassium 3.7 mmol/L (3.5-5.1) 08/23/21 05:12 BUN 23 mg/dL (7-18) H 08/23/21 05:12 Creatinine 0.82 mg/dL (0.55-1.3) 08/23/21 05:12 Glucose 107 mg/dL (74-106) H 08/23/21 05:12 Phosphorus 3.3 mg/dL (2.5-4.9) 08/18/21 02:59 Magnesium 2.4 mg/dL (1.8-2.4) 08/18/21 02:59 Total Bilirubin 0.3 mg/dL (0.2-1.0) 08/17/21 10:44 AST 16 U/L (15-37) 08/17/21 10:44 ALT 14 U/L (12-78) 08/17/21 10:44 Alkaline Phosphatase 71 U/L (45-117) 08/17/21 10:44 Lipase 102 U/L (73-393) 08/17/21 10:44 Home Medications: Carbidopa/Levodopa [Carbidopa-Levodopa 25-100 Tab] 2 tab PO QID 04/16/21 Levothyroxine Sodium [Levothyroxine] 125 mcg PO DAILY 04/16/21 Amoxicillin/Potassium Clav [Augmentin 875-125 Tablet] 1 each PO BID 5 Days #10 tablet 08/23/21 Tamsulosin [Flomax*] 0.4 mg PO DAILY 30 Days #30 cap 08/23/21 New Medications: Amoxicillin/Potassium Clav [Augmentin 875-125 Tablet] 1 each PO BID 5 Days #10 tablet Tamsulosin [Flomax*] 0.4 mg PO DAILY 30 Days #30 cap Physician Discharge Instructions: Patient was found to have a urinary tract infection secondary to Enterococcus faecalis. Patient received 5 days of IV Rocephin. He was also noted to have urinary retention on admission and a Carr catheter was placed. Urinary retention was felt secondary to infection and possibly due to moderate amount of stool burden/constipation. Patient given stool softeners and laxatives and had a large bowel movement. Voiding trial was attempted and failed x2 on 08/22 with Carr catheter being reinserted overnight. Patient reported 1 prior episode of urinary retention last year, was evaluated by Dr. Hyman in the office. Patient was otherwise doing well and requested to be discharged home. Discharge home with home health, with Carr catheter. Advised to follow-up with Urology in the next 1-2 weeks Follow-up with PCP within 1 week. Prescribed 5 more days of antibiotics, on Augmentin. Diet: AHA Activity: Fall precautions Followup: NONE,NONE [Primary Care Provider] - Atif Hyman [ACTIVE - CAN ADMIT] - Time spent managing pt's care (in minutes): 45
== END 2021-08-23 10:07 | disposition home health service (06) | DRG 689 ==
LOC: ER 09:50 → ERHOLD 16:02 → 2ND 20:46
PROVIDERS: ADMIT Internal Medicine; ATTEND Hospitalist
DX: N13.6 Pyonephrosis (principal); E43 Unspecified severe protein-calorie malnutrition; K56.600 Partial intestinal obstruction, unspecified as to cause; Z68.1 Body mass index [BMI] 19.9 or less, adult; G20 Parkinson's disease; E03.9 Hypothyroidism, unspecified; N32.89 Other specified disorders of bladder; K59.04 Chronic idiopathic constipation; N40.0 Benign prostatic hyperplasia without lower urinary tract symptoms; I48.91 Unspecified atrial fibrillation; B95.2 Enterococcus as the cause of diseases classified elsewhere; B95.1 Streptococcus, group B, as the cause of diseases classified elsewhere; R33.9 Retention of urine, unspecified; Z79.890 Hormone replacement therapy; Z79.01 Long term (current) use of anticoagulants; Z88.1 Allergy status to other antibiotic agents; Z79.899 Other long term (current) drug therapy; Z20.822 Contact with and (suspected) exposure to COVID-19
CPT/HCPCS: 36415; 51702; 70450; 71045; 74018; 74177; 80048; 80076; 81003; 81015; 83605; 83690; 83735; 83880; 84100; 84145; 84443; 84484; 85025; 85610; 87077; 87086; 87088; 87186; 93005; 96365; 96366; 97110; 97116; 97161; 97530; 99285; J2270; J7030; J7040; Q9967; U0003

== ENCOUNTER 2022-07-19 07:08 | Emergency (ER) | payer OTHER, MEDICARE ==
--- OUTSIDE RECORDS SUMMARY | 2022-07-19 07:12 | XMS REPORT | Continuity of Care Document ---
:1945 Author Organization [facility] Address [address] [place] [address] Care Team Providers Name Role Phone Anthony Urban Primary Care Physician Mikel Sotelo MD Attending Clinician , [facility] Surg Spec Procedure Attending Clinician Unavailable MIKEL SOTELO Attending Clinician Unavailable 2, [facility] Attending Clinician Unavailable Arlette Romo MD Attending Clinician Doctor Unassigned, [place] Attending Clinician Unavailable BINDU RIZZO Attending Clinician Unavailable Payers Payer Name Policy Type Policy Number Effective Date Expiration Date S ource Problems Condition Condition Condition Status Onset Resolution Last Treating Co mments Source Name Details Category Date Date Treatment Clinician Date No known No known Disease Unive rs active active ity of problems problems [facility] Allergies, Adverse Reactions, Alerts Allergy Allergy Status Severity Reaction(s) Onset Inactive Treating Comm ents Source Name Type Date Date Clinician SULFAMET DRUG Active Rash 2002-07 Univers HOXAZOLE INGREDI 07-24 ity of 00:00: [place] 00 [facility] [place] Sulfamet Propensi Active Rash 2002-07 Univer s hoxazole ty to 07-24 ity of adverse 00:00: [place] reaction 00 Medical s [place] Social History Social Habit Start Date Stop Date Quantity Comments Source Exposure to 2021-11-13 2021-11-23 Not sure [facility] SARS-CoV-2 (event) 00:00:00 09:34:00 Medica l Branch Sex Assigned At [birth year] [facility] 00:00:00 00:00:00 [facility] [place] Smoking Status Start Date Stop Date Source Unknown if ever smoked [facility] Medications Ordered Filled Start Stop Current Ordering Indication Dosage Frequency Signature Comments Components Source Medication Medication Date Date Medication? Clinician (SIG) Name Name tadalafiL 5 Yes 5mg Take 5 mg U nivers mg tablet 2-18 by mouth ity of 00:00: every 00 morning. Medical Branch carbidopa-l Yes TAKE 2 Univ ers evodopa 1-28 TABLET BY ity of 25-100 mg 00:00: MOUTH 5 [place] tablet 00 TIMES A Medical DAY Branch Immunizations Ordered Filled Immunization Date Status Comments Sour e Immunization Name Name SARS-COV-2 COVID-19 2020-10-08 Completed Unive rsity of PFIZER VACCINE 00:00:00 [facility] SARS-COV-2 COVID-19 2020-09-17 Completed Unive rsity of PFIZER VACCINE 00:00:00 [facility] Vital Signs Vital Name Observation Time Observation Value Comments Source Systolic blood 2021-11-23 15:18:00 196 mm[Hg] Univer sity of pressure [facility] Diastolic blood 2021-11-23 15:18:00 102 mm[Hg] Unive rsity of pressure [facility] Heart rate 2021-11-23 15:08:00 98 /min [facility] Respiratory rate 2021-11-23 15:08:00 18 /min Univ ersity of [facility] Body height 2021-11-23 15:08:00 177.8 cm [facility] Body weight 2021-11-23 15:08:00 57.153 kg [facility] BMI 2021-11-23 15:08:00 18.08 kg/m2 [facility] Oxygen saturation in 2021-11-23 15:08:00 98 /min [facility] Arterial blood by [facility] Pulse oximetry Branch Procedures This patient has no known procedures. Encounters Start End Encounter Admission Attending Care Care Encounter Source Date/Time Date/Time Type Type Clinicians Facility Department ID 2021-08-16 Outpatient [facility] [id number] Common 13:49:12 [id number] [facility] 2021-11-23 2021-11-23 Office Mikel Sotelo [facility] [id number] [facility] 09:30:00 10:00:00 Visit Rm, Adc Surg Spec Procedure [place] 3 [id number] [id number] [phone] Pr dical NAL 204 [facility] 2021-11-23 2021-11-23 Outpatient R FLORIAN [facility] [id number] Univers 09:30:00 09:30:00 MIKEL ity [facility] 2021-11-22 2021-11-22 Account Planner 2, Adc Lab [facility] [id number] [id number] Univers 10:15:00 10:30:00 Visit Mikel Sotelo GEMIN[place] [id number] [id number] [id number] Pr ishajuan NAL 353 [facility] 2021-11-22 2021-11-22 Outpatient R FLORIAN [facility] [id number] Univers 10:15:00 10:15:00 MIKEL ity [facility] 2021-11-16 2021-11-16 [facility] [id number] Univers 00:00:00 00:00:00 Arlette SING[place]ARY [id number] i ty of [facility] [id number] [id number] [facility] 188 [facility] 2021-11-16 2021-11-16 [facility]phone [facility] [id number] Univers 00:00:00 00:00:00 [facility] SPECIALTY [id number] [id number] C[place] AT [phone] Pr star VICTORY 204 [facility] 2021-11-15 2021-11-15 Telephone Florian [facility] [id number] Univers 00:00:00 00:00:00 [facility] HEALTH [id number] it y [id number] - [phone] Med ical MDA [address] [place] 2021-11-15 2021-11-15 Telephone JEFF Sotelo [id number] Univers 00:00:00 00:00:00 Mikel KAYLI [id number] it y of HOSPITAL [id number] [place] as [phone] [facility] [address]7 [place] 2021-11-13 2021-11-13 Account Planner 2, Adc Lab [facility] [id number] Univers 10:30:00 10:45:00 Visit Mikel Sotelo KENJIALIZE [id number] [id number] [id number] Pr dical NAL 353 [facility] 2021-11-13 2021-11-13 [facility] [id number] Univers 10:30:00 10:30:00 MIKEL ity of [facility] 2021-10-10 2021-10-10 [facility]phone [facility] [id number] Univers 00:00:00 00:00:00 [facility] [id number] i ty [id number] [id number] Pr dical NAL 204 [facility] 2021-09-25 2021-09-25 Outpatient R FLORIAN [facility] [id number] Univers 08:00:00 10:01:33 MIKEL ity of [facility] 2021-09-25 2021-09-25 Office [facility] [id number] Univers 08:00:00 10:01:33 Visit [facility] [id number] i ty [id number] [id number] Pr dical NAL 204 [facility] 2021-09-25 2021-09-25 Orders Doctor JEFF [id number] Univers 00:00:00 00:00:00 Only Unassigned, KAYLI [id number] ity of [place] [facility] [id number] [place] as [phone] [facility] 009 [place] 2020-09-17 2020-09-17 Outpatient Eb RIZZO [facility] [id number] Univers 09:05:00 09:05:00 BINDU sousa of [facility] Results This patient has no known results.
[2022-07-19 07:48] LABS: Absolute Lymphocytes (CBC) 0.4 K/uL (0.7-4.9); Hematocrit 40.7 % (39.6-49.0); Lymphocytes % 3.2 % (15.3-44.8); MCV 90.5 fL (80-100); MPV 7.7 fL (7.6-11.3)
[2022-07-19 08:09] LABS: Albumin 3.9 g/dL (3.4-5.0); Bilirubin Total 0.9 mg/dL (0.2-1.0); Magnesium 2.1 mg/dL (1.6-2.4); Potassium 3.6 mmol/L (3.5-5.1); Troponin High Sensitivity 33.8 pg/mL (<58.9)
--- NOTE | 2022-07-19 08:17 | RAD REPORT ---
EXAM DESCRIPTION: RAD - Hip Right 2 View - 07/19/2022 8:05 am CLINICAL HISTORY: PAIN COMPARISON: No comparisons FINDINGS: No acute fracture. No malalignment. No significant focal degenerative changes. IMPRESSION: No acute osseous abnormality involving the right hip.
--- NOTE | 2022-07-19 08:30 | RAD REPORT ---
EXAM DESCRIPTION: CT - [id number] - 07/19/2022 8:03 am CLINICAL HISTORY: Trauma, head and neck injury. fall, head injury COMPARISON: Head C Spine Mpr Wo Con dated 04/16/2021 TECHNIQUE: Axial 5 mm thick images of the head were obtained. Axial 2 mm thick images of the cervical spine were obtained with sagittal and coronal reconstruction images generated and reviewed. All CT scans are performed using dose optimization technique as appropriate and may include automated exposure control or mA/KV adjustment according to patient size. FINDINGS: CT HEAD WITHOUT CONTRAST: No acute hemorrhage, hydrocephalus or extra-axial collection is identified.No areas of brain edema or midline shift. Mild chronic small vessel ischemic changes. The paranasal sinuses and mastoids are clear.The calvarium is intact. CT CERVICAL SPINE WITHOUT CONTRAST: No fracture or subluxation.No prevertebral soft tissues swelling is identified. Cervical spondylosis present at C5-6 C6-7 with disc height loss and uncovertebral joint hypertrophy. No central spinal mukesh nosis appreciated. IMPRESSION: No acute intracranial or cervical spine findings.
[2022-07-19 08:33] LABS: Blood Morphology Comment NOT SEEN (NOT SEEN); Platelet Estimate ADEQ; White Blood Cell Scan OK (OK)
[2022-07-19] MEDS ORDERED: ACETAMINOPHEN 500 MG TAB ONE (08:56)
[2022-07-19 09:38] LABS: Urine Blood Negative (Negative); Urine Glucose Trace (Negative); Urine Protein 2+ (Negative); Urine Specific Gravity 1.015 (1.005-1.030); Urine pH 8.5 (5.0-7.0)
[2022-07-19 09:51] LABS: Urine Bacteria None Seen /HPF (<20); Urine Crystals Unidentified Few /HPF (None Seen); Urine RBC <5 /HPF (None Seen); Urine Triple Phosphate Crystal Few /HPF (None Seen)
[2022-07-19] MEDS ORDERED: CEFTRIAXONE 1000 MG/VIAL ONE (10:00)
--- NOTE | 2022-07-19 10:14 | EDPHYS ---
Physician Documentation [facility] Name: Gaurav Hector Age: 77 yrs Sex: Male : 1945 Arrival Date: 07/19/2022 Time: 07:10 Bed 2 Private MD: ED Physician Tierra Marley HPI: 07/19 07:29 This 77 yrs old Male presents to ER via EMS with complaints of Abdominal Pain. sd2 07:29 77 yo M presents via EMS with CC of fall and "I think I have a UTI." Reports recurrent sd2 falls due to his Parkinson's with the last fall 2 mornings ago. Pt reports head hitting. Denies LOC, fever, vomiting, diarrhea. Reports suprapubic abdominal pain mostly present with urination only and associated dysuria. . Historical: - Allergies: 07:16 Sulfa (Sulfonamide Antibiotics); ko1 - PMHx: 07:16 Hypothyroidism; Parkinsons; ko1 - PSHx: 07:16 Adenoid excision; Tonsillectomy; ko1 - Immunization history:: Adult Immunizations unknown. - Social history:: Smoking status: Patient denies any tobacco usage or history of. ROS: 07:29 Constitutional: Negative for fever, chills, and weight loss, Eyes: Negative for injury, sd2 pain, redness, and discharge, Cardiovascular: Negative for chest pain, palpitations, and edema, Respiratory: Negative for shortness of breath, cough, wheezing. Abdomen/GI: Positive for abdominal pain, Negative for nausea, vomiting, diarrhea. 07:29 MS/Extremity: Negative for injury and deformity, Skin: Negative for injury, rash, and discoloration. 07:29 : Positive for urinary symptoms, burning with urination, Negative for injury or acute deformity, testicular pain 07:29 Neuro: Positive for headache, Negative for numbness, tingling. Exam: 07:31 Constitutional: This is a well developed, well nourished patient who is awake, alert, sd2 and in no acute distress. Head/Face: Normocephalic, atraumatic. Eyes: EOMI, normal conjunctiva bilaterally Chest/axilla: Normal chest wall appearance and motion. Nontender with no deformity. Cardiovascular: Regular rate and rhythm with a normal S1 and S2. No gallops, murmurs, or rubs. 2+ distal pulses. Respiratory: Lungs have equal breath sounds bilaterally, clear to auscultation and percussion. No rales, rhonchi or wheezes noted. No increased work of breathing, no retractions or nasal flaring. Abdomen/GI: Soft, non-tender, with normal bowel sounds. No guarding or rebound. No evidence of tenderness throughout. Mild abdominal distention noted. Skin: Warm, dry with normal turgor. Normal color with no rashes, no lesions, and no evidence of cellulitis. MS/ Extremity: Pulses equal, no cyanosis. Neurovascular intact. Full, normal range of motion. No midline spinal tenderness, stepoffs or deformities. Psych: Awake, alert, with orientation to person, place and time. Behavior, mood, and affect are within normal limits. 07:45 ECG was reviewed by the Attending Physician. Sinus tachycardia, rate 107, no STEMI sd2 criteria Vital Signs: 07:11 BP 123 / 89; Pulse 88; Resp 16; Temp 97.9(O); Pulse Ox 95% on R/A; ko1 07:22 BP 127 / 88; Pulse 95; Resp 18; Pulse Ox 97% on R/A; ko1 MDM: 07:10 Patient medically screened. sd2 07:31 Differential diagnosis: UTI, ICH, contusion, fracture, appendicitis, SBO among others. sd2 Data reviewed: vital signs, nurses notes, EMS record. 10:10 Data reviewed: lab test result(s), EKG, radiologic studies. Counseling: I had a sd2 detailed discussion with the patient and/or guardian regarding: the historical points, exam findings, and any diagnostic results supporting the discharge/admit diagnosis, lab results, radiology results, the need for outpatient follow up, to return to the emergency department if symptoms worsen or persist or if there are any questions or concerns that arise at home. Medical screen evaluation completed. EMTALA emergency medical condition absent. ED course: Labs and imaging reviewed. Labs grossly WNCL aside from UA consistent with UTI. CT negative for acute process. R hip XR negative. Pt with FROM intact of hip and no significant TTP at this time. Discussed with pt and at that if pain persists, CT pelvis may be indicated. Will send urine culture and discharge with outpatient abx. Pt and comfortable with plan for discharge and outpatient follow up. Verbalizes understanding of strict return precautions. . 07/19 07:29 Order name: CBC with Diff; Complete Time: 08:34 sd2 07/19 07:29 Order name: CMP; Complete Time: 08:34 sd2 07/19 07:29 Order name: Magnesium; Complete Time: 08:34 sd2 07/19 07:29 Order name: Troponin High Sensitivity; Complete Time: 08:34 sd2 07/19 07:29 Order name: Lipase; Complete Time: 08:34 sd2 07/19 07:29 Order name: Urine Microscopic Only; Complete Time: 09:53 sd2 07/19 07:29 Order name: XRAY Hip RIGHT 2 view; Complete Time: 08:34 sd2 07/19 07:29 Order name: CT Head C Spine; Complete Time: 08:34 sd2 07/19 07:51 Order name: CBC Smear Scan; Complete Time: 08:34 EDMS 07/19 08:54 Order name: EKG Electrocardiogram; Complete Time: 08:58 EDMS 07/19 09:39 Order name: Urine Dipstick-Ancillary; Complete Time: 09:53 EDMS 07/19 09:53 Order name: Urine Culture sd2 07/19 07:29 Order name: EKG - Nurse/Tech; Complete Time: 07:43 sd2 07/19 07:29 Order name: Urine Dipstick-Ancillary (obtain specimen); Complete Time: 09:40 sd2 Administered Medications: 08:55 Drug: Tylenol 1000 mg Route: PO; hb 10:02 Drug: Rocephin (cefTRIAXone) 1 grams Route: IV; Rate: bolus; Site: right forearm; ko1 Disposition Summary: 07/19/22 10:13 Discharge Ordered Location: Home sd2 Problem: new sd2 Symptoms: have improved sd2 Condition: Stable sd2 Diagnosis - UTI/ Urinary tract infection, site not specified sd2 - Fall on same level, unspecified sd2 - Unspecified injury of head, initial encounter sd2 - Pain in right hip sd2 Followup: sd2 - With: Private Physician - When: 2 - 3 days - Reason: Recheck today's complaints, Continuance of care, Re-evaluation by your physician Discharge Instructions: - Discharge Summary Sheet sd2 - Head Injury, Adult sd2 - Urinary Tract Infection, Adult sd2 - Hip Pain sd2 Forms: - Medication Reconciliation Form sd2 - Thank You Letter sd2 - Antibiotic Education sd2 - Prescription Opioid Use sd2 Prescriptions: - cefdinir 300 mg Oral capsule - take 1 capsule by ORAL route every 12 hours for 7 days; 14 capsule; Refills: 0, sd2 Product Selection Permitted Signatures: Dispatcher [employer] Ophelia Ma RN RN hb Dunlop, Stephanie, MD MD sd2 Chen White RN RN ko1
--- NOTE | 2022-07-19 10:14 | ER ---
Nurse's Notes [facility] Name: Gaurav Hector Age: 77 yrs Sex: Male : 1945 Arrival Date: 07/19/2022 Time: 07:10 Bed 2 Private MD: Diagnosis: UTI/ Urinary tract infection, site not specified;Fall on same level, unspecified;Unspecified injury of head, initial encounter;Pain in right hip Presentation: 07/19 07:11 Chief complaint: EMS states: We were called because the patients said he had a ko1 UTI. He does have pain when he urinates and RLQ pain. Coronavirus screen: At this time, the client does not indicate any symptoms associated with coronavirus-19. Ebola Screen: No symptoms or risks identified at this time. Initial Sepsis Screen: Does the patient meet any 2 criteria? No. Patient's initial sepsis screen is negative. Does the patient have a suspected source of infection? No. Patient's initial sepsis screen is negative. Risk Assessment: Do you want to hurt yourself or someone else? Patient reports no desire to harm self or others. Onset of symptoms was July 18, 2022. 07:11 Method Of Arrival: EMS: [facility] ko1 07:11 Acuity: GO 3 ko1 Triage Assessment: 07:16 General: Appears in no apparent distress. comfortable, slender, unkempt, Behavior is ko1 calm, cooperative, appropriate for age. Pain: Complains of pain in suprapubic area. Historical: - Allergies: 07:16 Sulfa (Sulfonamide Antibiotics); ko1 - PMHx: 07:16 Hypothyroidism; Parkinsons; ko1 - PSHx: 07:16 Adenoid excision; Tonsillectomy; ko1 - Immunization history:: Adult Immunizations unknown. - Social history:: Smoking status: Patient denies any tobacco usage or history of. Screenin:22 [facility] ED Fall Risk Assessment (Adult) History of falling in the last 3 months, ko1 including since admission No falls in past 3 months (0 pts) Confusion or Disorientation No (0 pts) Intoxicated or Sedated No (0 pts) Impaired Gait Yes (1 pt) Mobility Assist Device Used Yes (1 pt) Altered Elimination Yes (1 pt) Score/Fall Risk Level 3 or more points = High Risk Oriented to surroundings, Maintained a safe environment, Educated pt \T\ family on fall prevention, incl call for assistance when getting out of bed, Assessed \T\ reinforced patient's understanding of fall precautions, Provided non-skid footwear, Hourly rounding (assess needs \T\ fall precautionary measures) done, Used ambulatory aids as needed (educated on \T\ assisted with), Used gait belt as appropriate Implemented a Fall Risk Plan of Care, Apply high fall risk patient identification: yellow non skid footwear/ fall signage, Offered frequent toileting (1:1 observation), Remained with patient while ambulating, Utilized family, sitter, or virtual retail operations manager as indicated. Abuse screen: Denies threats or abuse. Denies injuries from another. Nutritional screening: No deficits noted. Tuberculosis screening: No symptoms or risk factors identified. Assessment: 07:22 Neuro: No deficits noted. Cardiovascular: No deficits noted. Respiratory: No deficits ko1 noted. GI: No deficits noted. : Reports incontinence, pain in suprapubic area. EENT: No deficits noted. Derm: No deficits noted. Musculoskeletal: No deficits noted. Vital Signs: 07:11 BP 123 / 89; Pulse 88; Resp 16; Temp 97.9(O); Pulse Ox 95% on R/A; ko1 07:22 BP 127 / 88; Pulse 95; Resp 18; Pulse Ox 97% on R/A; ko1 ED Course: 07:10 Patient arrived in ED. ko1 07:10 Tierra Marley MD is Attending Physician. sd2 07:16 Triage completed. ko1 07:16 Arm band placed on right wrist. ko1 07:22 No provider procedures requiring assistance completed. ko1 07:32 Chen White, RN is Primary Nurse. ko1 07:43 Patient has correct armband on for positive identification. Bed in low position. Call ko1 light in reach. Side rails up X2. Adult w/ patient. Pulse ox on. NIBP on. 07:43 Lipase Sent. ko1 07:43 Troponin High Sensitivity Sent. ko1 07:43 Magnesium Sent. ko1 07:43 CMP Sent. ko1 07:43 CBC with Diff Sent. ko1 07:43 Inserted saline lock: 20 gauge in right forearm, using aseptic technique. Blood ko1 collected. 08:05 CT Head C Spine In Process Unspecified. EDMS 08:07 XRAY Hip RIGHT 2 view In Process Unspecified. EDMS 09:44 Urine Microscopic Only Sent. bc6 09:45 Urine collected: straight cath specimen. bc6 Administered Medications: 08:55 Drug: Tylenol 1000 mg Route: PO; hb 10:02 Drug: Rocephin (cefTRIAXone) 1 grams Route: IV; Rate: bolus; Site: right forearm; ko1 Outcome: 10:13 Discharge ordered by . tristin 11:20 Patient left the ED. Signatures: Dispatcher [employer] EDKY Ophelia Pollard, RN RN Tierra Marley MD MD sd2 Chen White RN RN ko1 Hanan Oh[facility]
[2022-07-19 11:45] VITALS: TEMP 97.9
[2022-07-19 11:51] VITALS: BP 127/88; O2SAT 97
--- NOTE | 2022-07-19 17:42 | EKG ---
Test Date: 2022-07-19 Test Time: 07:40:20 Metal Mixer: HB MEASUREMENT RESULTS: Intervals: Rate: 107 AK: 168 QRSD: 94 QT: 322 QTc: 429 Martell: P: 48 AK: 168 QRS: -14 T: 17 INTERPRETIVE STATEMENTS: Sinus tachycardia Cannot rule out Inferior infarct, age undetermined Abnormal ECG Compared to ECG 08/18/2021 00:34:01 Myocardial infarct finding now present Sinus rhythm no longer present Electronically Signed On 07-19-22 17:41:37 TAPE TRANSFERRER by Chris Matta
== END 2022-07-19 11:20 | disposition home or self-care (01) ==
LOC: ER 07:08
DX: S09.90XA Unspecified injury of head, initial encounter (principal); M25.551 Pain in right hip; N39.0 Urinary tract infection, site not specified; W18.30XA Fall on same level, unspecified, initial encounter; G20 Parkinson's disease; Z88.2 Allergy status to sulfonamides
CPT/HCPCS: 36415; 70450; 72125; 80053; 81003; 81015; 83690; 83735; 84484; 85025; 87077; 87086; 87088; 87186; 93005; 96374; 99284

== ENCOUNTER 2022-09-10 16:38 | Emergency (ER) | payer OTHER ==
[2022-09-10 18:36] LABS: Absolute Lymphocytes (CBC) 0.6 K/uL (0.7-4.9); Hematocrit 35.4 % (39.6-49.0); Lymphocytes % 8.5 % (15.3-44.8); MCV 89.3 fL (80-100); MPV 7.9 fL (7.6-11.3); RBC Red Blood Cell Count 3.97 M/uL (4.33-5.43)
--- NOTE | 2022-09-10 19:18 | ER ---
Nurse's Notes [facility] Name: Gaurav Hector Age: 77 yrs Sex: Male : 1945 Arrival Date: 09/10/2022 Time: 16:41 Bed 7 Private MD: Anthony Urban Diagnosis: Other mechanical complication of urinary (indwelling) catheter;Retention of urine, unspecified Presentation: 09/10 17:56 Chief complaint: Spouse and/or significant other states: No drainage from catheter x 24 jl7 hours, abdomen noted to be distended. Coronavirus screen: At this time, the client does not indicate any symptoms associated with coronavirus-19. Ebola Screen: No symptoms or risks identified at this time. Initial Sepsis Screen: Does the patient meet any 2 criteria? No. Patient's initial sepsis screen is negative. Does the patient have a suspected source of infection? No. Patient's initial sepsis screen is negative. Risk Assessment: Do you want to hurt yourself or someone else? Patient reports no desire to harm self or others. Onset of symptoms was September 09, 2022. 17:56 Method Of Arrival: Wheelchair 7 17:56 Acuity: GO 3 jl7 Triage Assessment: 18:00 General: Appears distressed, uncomfortable, Behavior is cooperative, appropriate for bp age, anxious. Pain: Complains of pain in pelvis. EENT: No deficits noted. Neuro: PARKINSON'S. Cardiovascular: Rhythm is sinus rhythm. Respiratory: No deficits noted. GI: Abdomen is distended. : OCCLUDED. Derm: No deficits noted. Musculoskeletal: PARKINSON'S. Historical: - Allergies: 17:57 Sulfa (Sulfonamide Antibiotics); jl7 - PMHx: 17:57 Hypothyroidism; Parkinsons; jl7 - PSHx: 17:57 Adenoid excision; Tonsillectomy; jl7 - Immunization history:: Adult Immunizations unknown. - Social history:: Smoking status: unknown. Screenin:00 [facility] ED Fall Risk Assessment (Adult) History of falling in the last 3 months, bp including since admission No falls in past 3 months (0 pts). Abuse screen: Denies threats or abuse. Denies injuries from another. Nutritional screening: No deficits noted. Tuberculosis screening: No symptoms or risk factors identified. Assessment: 18:00 General: SEE TRIAGE NOTE. bp 19:41 Reassessment: Patient appears in no apparent distress at this time. Patient and/or bp family updated on plan of care and expected duration. Pain level reassessed. Patient is alert, oriented x 3, equal unlabored respirations, skin warm/dry/pink. Pt assisted to vehicle via wheel chair. Vital Signs: 17:56 BP 154 / 104; Pulse 91; Resp 17; Temp 97.8; Pulse Ox 99% ; jl7 18:29 BP 154 / 104; Pulse 84; Resp 18; Pulse Ox 100% on R/A; ld1 19:15 BP 138 / 95; Pulse 86; Resp 16; Pulse Ox 98% on R/A; bp ED Course: 16:41 Patient arrived in ED. mr 16:41 Anthony Urban MD is Private Physician. mr 17:48 Kavin Burch, LENA is Primary Nurse. bp 17:57 Triage completed. jl7 17:57 Arm band placed on right wrist. jl7 17:58 Allan Cuevas MD is Attending Physician. windy 17:58 Latoya Goldberg FNP-C is [facility]. snw 17:59 Bladder scan completed. 945 mL. jl7 18:00 Patient has correct armband on for positive identification. Bed in low position. Call bp light in reach. Side rails up X2. Adult w/ patient. 18:00 Coud inserted, using sterile technique, 18 Fr. Returned cloudy urine. To gravity bp drainage. 18:18 Inserted saline lock: 22 gauge in right forearm, using aseptic technique. Blood bp collected. 19:15 No provider procedures requiring assistance completed. IV discontinued, intact, bp bleeding controlled, No redness/swelling at site. Pressure dressing applied. Administered Medications: No medications were administered Medication: 19:15 VIS not applicable for this client. bp Outcome: 19:17 Discharge ordered by . snw 19:30 Discharged to home via wheelchair, with family. bp 19:30 Condition: stable 19:30 Discharge instructions given to patient, family, Instructed on discharge instructions, follow up and referral plans. Demonstrated understanding of instructions, follow-up care. 19:40 Patient left the ED. kl Signatures: Jane Le RN RN kl Anderson, Corey, MD MD cha Waters, Shelly, FNP-C CUSTOMER SUPPORT ANALYST-Shelia KingaSasha Eric Baker, RN RN jl7 Kavin Burch, RN RN bp Josephine Stern, RN RN ld1
--- NOTE | 2022-09-10 19:18 | EDPHYS ---
Physician Documentation [facility] Name: Gaurav Hector Age: 77 yrs Sex: Male : 1945 Arrival Date: 09/10/2022 Time: 16:41 Bed 7 Private MD: Anthony Urban ED Physician Allan Cuevas HPI: 09/10 18:03 This 77 yrs old Male presents to ER via Wheelchair with complaints of Problem With snw Urinary Catheter. 18:03 The patient presents with a Curry catheter problem, is not draining. Onset: The snw symptoms/episode began/occurred suddenly, > 24h ago. Associated signs and symptoms: Pertinent positives: abdominal pain. Severity of symptoms: At their worst the symptoms were mild, moderate. The patient has not experienced similar symptoms in the past. Sees Dr. Domingo. Saw Dr. Hyman for cath placement 2nd to hematuria, culture reported as negative. Pt does have appt with Dr. Hyman on 09/12/22. Historical: - Allergies: 17:57 Sulfa (Sulfonamide Antibiotics); jl7 - PMHx: 17:57 Hypothyroidism; Parkinsons; jl7 - PSHx: 17:57 Adenoid excision; Tonsillectomy; jl7 - Immunization history:: Adult Immunizations unknown. - Social history:: Smoking status: unknown. ROS: 18:02 Constitutional: Negative for fever, chills, and weight loss, Eyes: Negative for injury, snw pain, redness, and discharge, ENT: Negative for injury, pain, and discharge, Neck: Negative for injury, pain, and swelling, Cardiovascular: Negative for chest pain, palpitations, and edema, Respiratory: Negative for shortness of breath, cough, wheezing, and pleuritic chest pain, Back: Negative for injury and pain, : Negative for injury, bleeding, discharge, and swelling, MS/Extremity: Negative for injury and deformity, Skin: Negative for injury, rash, and discoloration, Neuro: Negative for headache, weakness, numbness, tingling, and seizure. 18:02 Abdomen/GI: Positive for abdominal distension, pt has had no output from curry in >24h. Exam: 18:01 Constitutional: This is a well developed, well nourished patient who is awake, alert, snw and in no acute distress. Head/Face: Normocephalic, atraumatic. Eyes: Pupils equal round and reactive to light, extra-ocular motions intact. Lids and lashes normal. Conjunctiva and sclera are non-icteric and not injected. Cornea within normal limits. Periorbital areas with no swelling, redness, or edema. ENT: Nares patent. No nasal discharge, no septal abnormalities noted. Tympanic membranes are normal and external auditory canals are clear. Oropharynx with no redness, swelling, or masses, exudates, or evidence of obstruction, uvula midline. Mucous membranes moist. Neck: Trachea midline, no thyromegaly or masses palpated, and no cervical lymphadenopathy. Supple, full range of motion without nuchal rigidity, or vertebral point tenderness. No Meningismus. Chest/axilla: Normal chest wall appearance and motion. Nontender with no deformity. No lesions are appreciated. 18:01 Back: No spinal tenderness. No costovertebral tenderness. Full range of motion. Skin: Warm, dry with normal turgor. Normal color with no rashes, no lesions, and no evidence of cellulitis. MS/ Extremity: Pulses equal, no cyanosis. Neurovascular intact. Full, normal range of motion. Neuro: Awake and alert, GCS 15, oriented to person, place, time, and situation. Cranial nerves II-XII grossly intact. hx of Parkinson's Psych: Awake, alert, with orientation to person, place and time. Behavior, mood, and affect are within normal limits. 18:01 Cardiovascular: Rate: tachycardic, Rhythm: regular, Pulses: no pulse deficits are appreciated, Heart sounds: murmur, systolic, grade 3 over 6. 18:01 Respiratory: the patient does not display signs of respiratory distress, Respirations: shallow respirations, that is moderate, Breath sounds: are clear throughout. 18:01 Abdomen/GI: Inspection: distension, in the suprapubic area. Vital Signs: 17:56 BP 154 / 104; Pulse 91; Resp 17; Temp 97.8; Pulse Ox 99% ; jl7 18:29 BP 154 / 104; Pulse 84; Resp 18; Pulse Ox 100% on R/A; ld1 19:15 BP 138 / 95; Pulse 86; Resp 16; Pulse Ox 98% on R/A; bp MDM: 17:58 Patient medically screened. windy 17:59 Differential diagnosis: bacterial infection, UTI, catheter malfunction. Data reviewed: snw vital signs, nurses notes. Historians other than the Patient: Spouse/Significant Other: . Care significantly affected by the following chronic conditions: Parkinson's. Counseling: I had a detailed discussion with the patient and/or guardian regarding: the historical points, exam findings, and any diagnostic results supporting the discharge/admit diagnosis, the presence of at least one elevated blood pressure reading (>120/80) during this emergency department visit, the need for outpatient follow up, for definitive care, pt has an appt with Dr. Hyman on 09/12/22. . Response to treatment: the patient's symptoms have markedly improved after treatment. Special discussion: Based on the patient's Hx, exam, and Dx evaluation, there is no indication for emergent surgery or inpatient Tx. It is understood by the patient/guardian that if the Sx's persist or worsen they need to return immediately for re-evaluation. Based on the history and exam findings, there is no indication for further emergent testing or inpatient evaluation. I discussed with the patient/guardian the need to see the primary care provider for further evaluation of the symptoms. I discussed with the patient/guardian the need to see the urologist for further evaluation of the symptoms. 19:15 Differential diagnosis: nonspecific abdominal pain, UTI, urinary retention, Curry snw catheter problem. Response to treatment: smiling, no complaints. 09/10 17:59 Order name: Curry-Coude; Complete Time: 18:03 snw 09/10 17:59 Order name: Bladder Scanner; Complete Time: 18:03 snw 09/10 18:37 Order name: CBC with Automated Diff; Complete Time: 18:37 EDMS 09/10 18:47 Order name: Basic Metabolic Panel; Complete Time: 18:53 EDMS 09/10 19:14 Order name: Recheck VS; Complete Time: 19:41 snw 09/10 19:14 Order name: Misc. Order: Please document output; Complete Time: 19:41 snw Administered Medications: No medications were administered Disposition Summary: 09/10/22 19:17 Discharge Ordered Location: Home snw Condition: Stable snw Diagnosis - Other mechanical complication of urinary (indwelling) catheter snw - Retention of urine, unspecified snw Followup: snw - With: Emergency Department - When: As needed - Reason: Worsening of condition Followup: snw - With: Private Physician - When: 1 week - Reason: Recheck today's complaints, Continuance of care, Re-evaluation by your physician Discharge Instructions: - Discharge Summary Sheet snw - Indwelling Urinary Catheter Care, Adult snw - Acute Urinary Retention, Male snw Forms: - Medication Reconciliation Form snw - Thank You Letter snw - Antibiotic Education snw - Prescription Opioid Use snw Signatures: Dispatcher [employer] EDMS Allan Cuevas MD MD cha Waters, Shelly, CHIEF EXECUTIVE-C CHIEF EXECUTIVE-Csnw Eric Baker, RN RN jl7
[2022-09-10 20:15] VITALS: BP 154/104; TEMP 97.8
[2022-09-10 20:28] VITALS: O2SAT 100
== END 2022-09-10 19:40 | disposition home or self-care (01) ==
LOC: ER 16:38
DX: T83.098A Other mechanical complication of other urinary catheter, initial encounter (principal); R33.9 Retention of urine, unspecified; E03.9 Hypothyroidism, unspecified; G20 Parkinson's disease; Z88.2 Allergy status to sulfonamides
CPT/HCPCS: 36415; 80048; 85025; 99284

== ENCOUNTER 2022-09-18 11:27 | Emergency (ER) | payer OTHER ==
[2022-09-18 14:14] LABS: Urine Blood 2+ (Negative); Urine Glucose Negative (Negative); Urine Protein 1+ (Negative); Urine pH 6.5 (5.0-7.0)
--- NOTE | 2022-09-18 14:36 | ER ---
Nurse's Notes [facility] Name: Gaurav Hector Age: 77 yrs Sex: Male : 1945 Arrival Date: 09/18/2022 Time: 11:29 Bed 18 Private MD: Anthony Urban Diagnosis: UTI/ Urinary tract infection, site not specified;Encounter for fitting and adjustment of urinary device Presentation: 09/18 11:34 Chief complaint: Spouse and/or significant other states: patient has a possibly clogged ap3 urinary catheter. patient had the same issue last week, and was evaluated here. she also reports that the patients lower abdomen is distended. Coronavirus screen: At this time, the client does not indicate any symptoms associated with coronavirus-19. Ebola Screen: No symptoms or risks identified at this time. Initial Sepsis Screen: Does the patient meet any 2 criteria? No. Patient's initial sepsis screen is negative. Does the patient have a suspected source of infection? No. Patient's initial sepsis screen is negative. Risk Assessment: Do you want to hurt yourself or someone else? Patient reports no desire to harm self or others. Onset of symptoms was September 18, 2022. 11:34 Method Of Arrival: Wheelchair ap3 11:34 Acuity: GO 3 ap3 Triage Assessment: 11:36 General: Appears in no apparent distress. Behavior is calm. Pain: Unable to use pain ap3 scale. Cardiovascular: Patient's skin is warm and dry. Respiratory: Airway is patent Respiratory effort is even, unlabored, Respiratory pattern is regular, symmetrical. : Carr in place to gravity drainage 200 ml urine in catheter bag. Historical: - Allergies: 11:36 Sulfa (Sulfonamide Antibiotics); ap3 - PMHx: 11:36 Hypothyroidism; Parkinsons; ap3 - PSHx: 11:36 Adenoid excision; Tonsillectomy; ap3 - Immunization history:: Client reports receiving the 2nd dose of the Covid vaccine, Flu vaccine is not up to date. - Social history:: Smoking status: Patient denies any tobacco usage or history of. Screenin:00 [facility] ED Fall Risk Assessment (Adult) History of falling in the last 3 months, ko1 including since admission No falls in past 3 months (0 pts) Confusion or Disorientation No (0 pts) Intoxicated or Sedated No (0 pts) Impaired Gait Yes (1 pt) Mobility Assist Device Used Yes (1 pt) Altered Elimination Yes (1 pt) Score/Fall Risk Level 3 or more points = High Risk Oriented to surroundings, Maintained a safe environment, Educated pt \T\ family on fall prevention, incl call for assistance when getting out of bed, Assessed \T\ reinforced patient's understanding of fall precautions, Provided non-skid footwear, Hourly rounding (assess needs \T\ fall precautionary measures) done, Used ambulatory aids as needed (educated on \T\ assisted with), Used gait belt as appropriate Implemented a Fall Risk Plan of Care, Apply high fall risk patient identification: yellow non skid footwear/ fall signage, Remained w/in arm's length of patient and in sight while toileting, Offered frequent toileting (1:1 observation), Remained with patient while ambulating, Utilized family, sitter, or virtual wrapper opener as indicated. Abuse screen: Denies threats or abuse. Denies injuries from another. Nutritional screening: No deficits noted. Tuberculosis screening: No symptoms or risk factors identified. Assessment: 14:00 General: Appears in no apparent distress. comfortable, Behavior is calm, cooperative, ko1 appropriate for age. Pain: Denies pain. Neuro: No deficits noted. Cardiovascular: No deficits noted. Respiratory: No deficits noted. GI: No deficits noted. : is draining without difficulty Parent/caregiver report the patient having catheter is clogged and not draining. EENT: No deficits noted. Derm: No deficits noted. Musculoskeletal: No deficits noted. Vital Signs: 11:34 BP 144 / 84; Pulse 71; Resp 19; Temp 99.0; Pulse Ox 99% ; Weight 56.7 kg; ap3 14:00 BP 138 / 80; Pulse 68; Resp 18; Pulse Ox 100% ; ko1 ED Course: 11:29 Patient arrived in ED. am2 11:29 Anthony Urban MD is Private Physician. am2 11:36 Triage completed. ap3 11:36 Rob Gonzalez PA is PHCP. [facility] 11:37 Rikki Rivas DO is Attending Physician. jmm 11:38 Arm band placed on left wrist. ap3 11:38 Patient has correct armband on for positive identification. Adult w/ patient. ap3 13:12 Chen White, RN is Primary Nurse. ko1 14:00 Patient tolerated well. Coud removed intact, balloon deflated. ko1 14:00 No provider procedures requiring assistance completed. Patient did not have IV access ko1 during this emergency room visit. 14:15 Coud inserted, using sterile technique, 18 Fr. Returned clear yellow urine. To gravity ko1 drainage. Urine specimen collected. Administered Medications: No medications were administered Medication: 14:00 VIS not applicable for this client. ko1 Outcome: 14:35 Discharge ordered by . batool 14:43 Discharged to home via wheelchair, with friend. ko1 14:43 Condition: stable 14:43 Discharge instructions given to patient, friend, Instructed on discharge instructions, follow up and referral plans. medication usage, Demonstrated understanding of instructions, follow-up care, medications, Prescriptions given X 1. 14:54 Patient left the ED. ko1 Signatures: Rob Gonzalez PA PA jmm Moreno, Amanda am2 Prokisch, Amanda, RN RN ap3 Chen White, RN RN ko1 Corrections: (The following items were deleted from the chart) 11:38 11:34 Chief complaint: Spouse and/or significant other states: patient has a possibly ap3 clogged urinary catheter. patient had the same issue last week, and was evaluated here. ap3 14:15 14:13 Urine collected: Carr catheter specimen, clear, sediment noted, Amount Returned: ko1 50mL ko1 14:15 14:13 Patient tolerated well. Carr cath removed intact, balloon deflated, ko1 ko1
--- NOTE | 2022-09-18 14:36 | EDPHYS ---
Physician Documentation [facility] Name: Gaurav Hector Age: 77 yrs Sex: Male : 1945 Arrival Date: 09/18/2022 Time: 11:29 Bed 18 Private MD: Anthony Urban ED Physician Rikki Rivas HPI: 09/18 11:38 This 77 yrs old Male presents to ER via Wheelchair with complaints of Problem With jmm Urinary Catheter. 11:38 Is a 77-year-old male with history of Parkinson's the presents emerged department with jmm decreased urinary output out of his catheter. Is concerned that there may be clogged. Denies abdominal pain, vomiting.. Historical: - Allergies: 11:36 Sulfa (Sulfonamide Antibiotics); ap3 - PMHx: 11:36 Hypothyroidism; Parkinsons; ap3 - PSHx: 11:36 Adenoid excision; Tonsillectomy; ap3 - Immunization history:: Client reports receiving the 2nd dose of the Covid vaccine, Flu vaccine is not up to date. - Social history:: Smoking status: Patient denies any tobacco usage or history of. ROS: 11:38 Constitutional: Negative for fever, chills, and weight loss, Cardiovascular: Negative jmm for chest pain, palpitations, and edema, Respiratory: Negative for shortness of breath, cough, wheezing, and pleuritic chest pain. 11:38 : Positive for 11:38 All other systems are negative. Exam: 11:38 Constitutional: This is a well developed, well nourished patient who is awake, alert, jmm and in no acute distress. Head/Face: atraumatic. Eyes: EOMI, no conjunctival erythema appreciated ENT: Moist Mucus Membranes Neck: Trachea midline, Supple Chest/axilla: Normal chest wall appearance and motion. Cardiovascular: Regular rate and rhythm. No edema appreciated Respiratory: Normal respirations, no respiratory distress appreciated Abdomen/GI: Non distended Back: Normal ROM Skin: General appearance color normal MS/ Extremity: Moves all extremities, no obvious deformities appreciated, no edema noted to the lower extremities Neuro: Awake and alert Psych: Behavior is normal, Mood is normal, Patient is cooperative and pleasant Vital Signs: 11:34 BP 144 / 84; Pulse 71; Resp 19; Temp 99.0; Pulse Ox 99% ; Weight 56.7 kg; ap3 14:00 BP 138 / 80; Pulse 68; Resp 18; Pulse Ox 100% ; ko1 MDM: 11:38 Patient medically screened. [facility] 14:34 Data reviewed: vital signs, nurses notes. [facility] 14:34 Differential diagnosis: urinary retention. Counseling: I had a detailed discussion with batool the patient and/or guardian regarding: the historical points, exam findings, and any diagnostic results supporting the discharge/admit diagnosis, the need for outpatient follow up, to return to the emergency department if symptoms worsen or persist or if there are any questions or concerns that arise at home. 09/18 11:43 Order name: Carr; Complete Time: 14:09 [facility] 09/18 13:35 Order name: Urine Dipstick-Ancillary (obtain specimen); Complete Time: 14:09 [facility] 09/18 14:14 Order name: Urine Dipstick-Ancillary; Complete Time: 14:15 EDMS Administered Medications: No medications were administered Disposition: 16:50 Co-signature as Attending Physician, Rikki Rivas DO I was immediately available on-site ms3 in the Emergency Department for consultation in the care of the patient. Disposition Summary: 09/18/22 14:35 Discharge Ordered Location: Home [facility] Condition: Stable [facility] Diagnosis - UTI/ Urinary tract infection, site not specified [facility] - Encounter for fitting and adjustment of urinary device [facility] Followup: [facility] - With: Private Physician - When: 2 - 3 days - Reason: Recheck today's complaints, Continuance of care, Re-evaluation by your physician Discharge Instructions: - Discharge Summary Sheet [facility] - Urinary Tract Infection, Adult jm - Indwelling Urinary Catheter Care, Adult, [id number] [facility] Forms: - Medication Reconciliation Form [facility] - Thank You Letter [facility] - Antibiotic Education [facility] - Prescription Opioid Use [facility] Prescriptions: - Cephalexin 500 mg Oral Capsule - take 1 capsule by ORAL route every 8 hours for 10 days; 30 capsule; Refills: 0, [facility] Product Selection Permitted Signatures: Rob Gonzalez PA PA jmm Prokisch, Amanda, RN RN ap3 Rikki Rivas DO DO ms3
[2022-09-18 14:59] VITALS: TEMP 99
[2022-09-18 15:01] VITALS: BP 138/80; O2SAT 100
== END 2022-09-18 14:54 | disposition home or self-care (01) ==
LOC: ER 11:27
DX: N39.0 Urinary tract infection, site not specified (principal); Z46.6 Encounter for fitting and adjustment of urinary device; G20 Parkinson's disease; Z88.2 Allergy status to sulfonamides
CPT/HCPCS: 81003; 99284

== ENCOUNTER 2022-10-08 23:08 | Emergency (ER) | payer OTHER ==
[2022-10-09 00:17] LABS: Absolute Lymphocytes (CBC) 0.9 K/uL (0.7-4.9); Hematocrit 34.8 % (39.6-49.0); Lymphocytes % 8.7 % (15.3-44.8); MCV 89.6 fL (80-100); MPV 7.9 fL (7.6-11.3); RBC Red Blood Cell Count 3.88 M/uL (4.33-5.43)
[2022-10-09 00:35] LABS: ALT/SGPT < 10 U/L (16-61); AST/SGOT 16 U/L (15-37); Albumin 3.6 g/dL (3.4-5.0); Alkaline Phosphatase 72 U/L (45-117); BUN Blood Urea Nitrogen 42 mg/dL (7-18); Bicarbonate 26 mEq/L (21-32); Bilirubin Total 0.4 mg/dL (0.2-1.0); Glomerular Filtration Rate 74 ml/min (=/>90); Glucose Level 134 mg/dL (74-106); Lipase 21 U/L (13-75); Potassium 3.7 mEq/L (3.5-5.1); Protein, Total 7.4 g/dL (6.4-8.2); Sodium Level 141 mEq/L (136-145)
[2022-10-09 01:02] LABS: Specific Gravity ND (1.005-1.030); Urine Ascorbic Acid ND (Negative); Urine Bilirubin ND (Negative); Urine Blood ND (Negative); Urine Clarity Extremely Turbid (Clear); Urine Color Brown (Yellow); Urine Glucose ND (Negative); Urine Protein ND (Negative); Urine Urobilinogen ND mg/dL (0.2-1.0); Urine pH ND (5.0-7.0)
[2022-10-09 01:03] LABS: Urine RBC >50 /HPF (None Seen)
[2022-10-09 01:04] LABS: Urine Bacteria <20 /HPF (<20)
--- NOTE | 2022-10-09 01:28 | EDPHYS ---
Physician Documentation [facility] Name: Gaurav Hector Age: 77 yrs Sex: Male : 1945 Arrival Date: 10/08/2022 Time: 23:09 Bed 8 Private MD: ED Physician Toyin Lopez HPI: 10/09 00:21 This 77 yrs old Male presents to ER via EMS with complaints of bloody urine. sp3 00:21 77-year-old male with history of Parkinson's disease and prior hematuria currently sp3 being worked up as an outpatient by urology with prior UTI and self cathing at home presents to the ED with chief complaint frankly bloody urine and urinary frequency in conjunction with pelvic pain. Limited history and physical from patient secondary to Parkinson's. All history from family and EMS at this time. Family denies fever or rash, upper body symptoms, or any other symptoms on ROS at this time as obtained in a limited fashion.. Historical: - Allergies: 10/08 23:11 Sulfa (Sulfonamide Antibiotics); as6 - PMHx: 23:11 Hypothyroidism; Parkinsons; as6 - PSHx: 23:11 Adenoid excision; Tonsillectomy; as6 - Immunization history:: Adult Immunizations up to date. - Social history:: Smoking status: Patient denies any tobacco usage or history of. ROS: 10/09 00:22 Unable to obtain ROS due to baseline dementia. sp3 Exam: 00:22 Constitutional: This is a well developed, well nourished patient who is awake, alert, sp3 and in no acute distress. Head/Face: Normocephalic, atraumatic. Neck: Trachea midline, no thyromegaly or masses palpated, and no cervical lymphadenopathy. Supple, full range of motion without nuchal rigidity, or vertebral point tenderness. No Meningismus. Chest/axilla: Normal chest wall appearance and motion. Nontender with no deformity. No lesions are appreciated. Cardiovascular: Regular rate and rhythm with a normal S1 and S2. No gallops, murmurs, or rubs. Normal PMI, no JVD. No pulse deficits. Respiratory: Lungs have equal breath sounds bilaterally, clear to auscultation and percussion. No rales, rhonchi or wheezes noted. No increased work of breathing, no retractions or nasal flaring. Abdomen/GI: Soft, non-tender, with normal bowel sounds. No distension or tympany. No guarding or rebound. No evidence of tenderness throughout. MS/ Extremity: Pulses equal, no cyanosis. Neurovascular intact. Full, normal range of motion. Neuro: Awake and alert, GCS 15, oriented to person, place, time, and situation. Cranial nerves II-XII grossly intact. Motor strength 5/5 in all extremities. Sensory grossly intact. Cerebellar exam normal. Normal gait. 00:22 : Urine is grossly bloody. No other abnormalities on exam noted in the region. Carr catheter will be placed.. Vital Signs: 10/08 23:09 BP 164 / 95; Pulse 94; Resp 18 S; Temp 98(O); Pulse Ox 99% on R/A; Weight 72.57 kg; as6 Height 6 ft. 1 in. ; 10/09 01:15 BP 131 / 90; Pulse 80; Resp 18; Pulse Ox 100% on R/A; ll3 10/08 23:09 Body Mass Index 21.11 (72.57 kg, 185.42 cm) as6 MDM: 00:12 Patient medically screened. sp3 00:23 Data reviewed: vital signs, nurses notes, EMS record, lab test result(s), radiologic sp3 studies. ED course: 77-year-old male with bereket hematuria. Differential diagnosis includes UTI, bladder issue/bleeding/mass, kidney stone, pyelonephritis, among others. Patient's vital signs are stable and I do not believe he is in shock or has sepsis. Work-up will include urinalysis, laboratory values, CT scan of the abdomen pelvis without contrast. Disposition based on patient course and work-up.. 01:24 ED course: Patient is much more comfortable with Carr catheter in place. CT scan sp3 reviewed and demonstrates no kidney stone and no other actionable items. Laboratory values also reviewed and demonstrate no significant abnormality including WBC count and creatinine. Patient is on a maintenance dose of cephalexin and we will now change to Cipro twice daily secondary to sulfa allergy with follow-up with urology on neck schedule appointment in a few days. I discussed this with the and she is in agreement with the plan and is thankful for her care.. 10/08 23:47 Order name: CBC with Diff; Complete Time: :03 sp3 10/08 23:47 Order name: CMP; Complete Time: 01:03 sp3 10/08 23:47 Order name: Lipase; Complete Time: 01:03 sp3 10/08 23:47 Order name: Urinalysis W/Microscopic; Complete Time: 01:18 sp3 10/08 23:47 Order name: CT Abd/Pelvis - Without Contrast sp3 10/08 23:47 Order name: IV Saline Lock; Complete Time: 00:16 sp3 10/08 23:47 Order name: Labs collected and sent; Complete Time: 00:16 sp3 10/08 23:47 Order name: Carr; Complete Time: 00:15 sp3 Administered Medications: No medications were administered Disposition Summary: 10/09/22 01:27 Discharge Ordered Location: Home sp3 Condition: Stable sp3 Diagnosis - Acute cystitis with hematuria sp3 Followup: sp3 - With: Private Physician - When: Upon discharge from the Emergency Department - Reason: Continuance of care Discharge Instructions: - Discharge Summary Sheet sp3 - Urinary Tract Infection, Adult sp3 Forms: - Medication Reconciliation Form sp3 - Thank You Letter sp3 - Antibiotic Education sp3 - Prescription Opioid Use sp3 Prescriptions: - Cipro 250 mg Oral Tablet - take 1 tablet by ORAL route every 12 hours for 10 days; 20 tablet; Refills: 0, sp3 Product Selection Permitted Signatures: Dispatcher [employer] Toyin Gomez MD MD sp3 Trey Garcia, RN RN as6
--- NOTE | 2022-10-09 01:28 | ER ---
Nurse's Notes [facility] Name: Gaurav Hector Age: 77 yrs Sex: Male : 1945 Arrival Date: 10/08/2022 Time: 23:09 Bed 8 Private MD: Diagnosis: Acute cystitis with hematuria Presentation: 10/08 23:09 Chief complaint:. Chief complaint: EMS states: called out for possible UTI. pt saw as6 urologist on Saturday and has urinary bleeding and pain ever since. Coronavirus screen: At this time, the client does not indicate any symptoms associated with coronavirus-19. Ebola Screen: No symptoms or risks identified at this time. Initial Sepsis Screen: Does the patient meet any 2 criteria? No. Patient's initial sepsis screen is negative. Does the patient have a suspected source of infection? No. Patient's initial sepsis screen is negative. Risk Assessment: Do you want to hurt yourself or someone else? Patient reports no desire to harm self or others. Onset of symptoms was October 05, 2022. 23:09 Acuity: GO 3 as6 23:09 Method Of Arrival: EMS: [facility] as6 Historical: - Allergies: 23:11 Sulfa (Sulfonamide Antibiotics); as6 - PMHx: 23:11 Hypothyroidism; Parkinsons; as6 - PSHx: 23:11 Adenoid excision; Tonsillectomy; as6 - Immunization history:: Adult Immunizations up to date. - Social history:: Smoking status: Patient denies any tobacco usage or history of. Screenin/21 01:13 [facility] ED Fall Risk Assessment (Adult) History of falling in the last 3 months, ll3 including since admission No falls in past 3 months (0 pts) Confusion or Disorientation No (0 pts) Intoxicated or Sedated No (0 pts) Impaired Gait Yes (1 pt) Mobility Assist Device Used No (0 pt) Altered Elimination Yes (1 pt) Score/Fall Risk Level 0 - 2 = Low Risk Oriented to surroundings, Maintained a safe environment, Educated pt \T\ family on fall prevention, incl call for assistance when getting out of bed. Abuse screen: Denies threats or abuse. Denies injuries from another. Nutritional screening: No deficits noted. Tuberculosis screening: No symptoms or risk factors identified. Assessment: 00:16 General: Appears uncomfortable, Behavior is calm, cooperative. Pain: Denies pain. ll3 Neuro: Level of Consciousness is awake, alert, obeys commands, Oriented to person, place, time, situation. : Urine is blood tinged, Reports blood with urination. Derm: Skin is pink, warm \T\ dry. Vital Signs: 10/08 23:09 BP 164 / 95; Pulse 94; Resp 18 S; Temp 98(O); Pulse Ox 99% on R/A; Weight 72.57 kg; as6 Height 6 ft. 1 in. ; 03 01:15 BP 131 / 90; Pulse 80; Resp 18; Pulse Ox 100% on R/A; ll3 10/08 23:09 Body Mass Index 21.11 (72.57 kg, 185.42 cm) as6 ED Course: 10/08 23:09 Patient arrived in ED. as6 23:11 Triage completed. as6 23:38 Toyin Lopez MD is Attending Physician. sp3 23:50 Initial lab(s) drawn, by me, sent to lab. Inserted saline lock: 20 gauge in left ll3 forearm, using aseptic technique. Blood collected. 10/09 00:16 Carr cath inserted, using sterile technique, 16 Fr., by me, balloon inflated, to ll3 gravity drainage, urine specimen collected. returned bloody urine. Patient tolerated well. 00:38 CT Abd/Pelvis - Without Contrast In Process Unspecified. EDMS 01:13 Patient has correct armband on for positive identification. Placed in gown. Bed in low ll3 position. Call light in reach. Side rails up X 1. 01:13 Arm band placed on Patient placed in an exam room, on a stretcher, on pulse oximetry. ll3 01:14 No provider procedures requiring assistance completed. ll3 01:38 IV discontinued, intact, bleeding controlled, No redness/swelling at site. Pressure ll3 dressing applied. Administered Medications: No medications were administered Medication: 01:37 VIS not applicable for this client. ll3 Outcome: 01:27 Discharge ordered by . sp3 01:38 Discharged to home via wheelchair, with significant other. ll3 01:38 Condition: stable 01:38 Discharge instructions given to patient, significant other, Instructed on discharge instructions, follow up and referral plans. medication usage, Demonstrated understanding of instructions, follow-up care, medications, Prescriptions given X 1. 02:15 Patient left the ED. ll3 Signatures: Dispatcher [employer] EDMS Toyin Lopez MD MD sp3 Trey Garcia RN RN as6 Chichi Tabor RN RN ll3
[2022-10-09 12:41] VITALS: TEMP 98
[2022-10-09 12:43] VITALS: BP 131/90; O2SAT 100
--- NOTE | 2022-10-09 14:30 | RAD REPORT ---
EXAM DESCRIPTION: CT - Abdomen Pelvis Wo Contrast - 10/09/2022 6:47 am CLINICAL HISTORY: The patient is 77 years old and is Male; HEMATURIA TECHNIQUE: Axial computed tomography images of the abdomen and pelvis without intravenous contrast. Sagittal and coronal reformatted images were created and reviewed. This CT exam was performed usi ng one or more of the following dose reduction techniques: automated exposure control, adjustment o f the mA and/or kV according to patient size, and/or use of iterative reconstruction technique. COMPARISON: CT of the abdomen and pelvis September 21, 2021 FINDINGS: LUNG BASES: Emphysematous changes of the lung bases is noted with mild superimposed area s of likely atelectasis. HEART: A trace pericardial effusion is present. ABDOMEN: LIVER: Homogeneous without focal mass. GALLBLADDER AND BILE DUCTS: No calcified stones. No ductal dilation. PANCREAS: Unremarkable. No ductal dilation. SPLEEN: Unremarkable. ADRENALS: Unremarkable. No mass. KIDNEYS AND URETERS: No obstructing stones. No hydronephrosis. No perinephric fluid. STOMACH AND BOWEL: The stomach is minimally filled with fluid and air. The small bowel is relati vely normal in caliber. A moderate to large rectal stool ball is present. Mild to moderate stool is n oted throughout the remainder the colon. There is no evidence of obstruction. PELVIS: APPENDIX: The appendix is normal in caliber without surrounding inflammation. BLADDER: The bladder is distended. Diffuse bladder wall thickening is noted. High density materi al is present within the bladder. A Carr catheter is also present within the bladder. Calcificatio ns within the base of the bladder present. No stones. REPRODUCTIVE: Unremarkable as visualized. ABDOMEN and PELVIS: INTRAPERITONEAL SPACE: Unremarkable. No free air. No significant fluid collection. BONES/JOINTS: The bones are osteopenic with mild curvature of the spine. There is no acute fract ure. SOFT TISSUES: The soft tissues are normal. VASCULATURE: Atherosclerosis of the vasculature is present. The vessels are normal in caliber. No abdominal aortic aneurysm. LYMPH NODES: Unremarkable. No enlarged lymph nodes. IMPRESSION: 1. Extensive bladder wall thickening which may be secondary to cystitis. 2. High density material within the bladder suggesting blood products. A discrete mass is not seen. Electronically signed by: Susu Joya MD 10/09/2022 1:14 AM CDT Due to temporary technical issues with the PACS/Fluency reporting system, reports are being signed by the in house radiologists without review as a courtesy to insure prompt reporting. The interpreting radiologist is fully responsible for the content of the report.
== END 2022-10-09 02:15 | disposition home or self-care (01) ==
LOC: ER 23:08
DX: N30.01 Acute cystitis with hematuria (principal); G20 Parkinson's disease; F02.80 Dementia in other diseases classified elsewhere, unspecified severity, without behavioral disturbance, psychotic disturbance, mood disturbance, and anxiety; Z88.2 Allergy status to sulfonamides
CPT/HCPCS: 36415; 51702; 74176; 80053; 81001; 83690; 85025; 99284

== ENCOUNTER 2024-01-20 11:08 | Emergency (ER) | payer OTHER ==
--- OUTSIDE RECORDS SUMMARY | 2024-01-20 11:12 | XMS REPORT | Continuity of Care Document ---
Author Name Unknown Address [address] [place] [address] [facility] [address] [place] [address] Care Team Providers Care Ornament Stitcher Name Role Phone Anthony Urban Primary Care Physician +- MIKEL DU Attending Clinician Unavailable Mikel Du MD Attending Clinician [phone] Doctor Unassigned, [place] Attending Clinician U SPRING Medina Attending Clinician UnavailSpring Bradley MD Attending Clinician [phone] Nurse, [facility] Surgery Gu Attending Clinician UnaDENISE Burciaga Attending Clinician Unavaila Denise Avendano Attending Clinician [phone] DANISHA CAT Attending Clinician Unavail Danisha Pearce MD Attending Clinician +- [phone] , [facility] Lab Attending Clinician Unavailable LITZY BUCIO Attending Clinician UnavailLitzy Navarro Attending Clinician + [phone] UNKNOWN, ATTENDING Attending Clinician Unavailab heidi , [facility] Surg Spec Procedure Attending Clinician Unavailable Arlette Romo MD Attending Clinician [phone] BINDU RIZZO Attending Clinician Unavailable BEHZADI, SPRING A Admitting Clinician Unavailabl e Payers Payer Name Policy Type Policy Number Effective Date Expirati on Date Source [employer] MC[employer] ADV CHOICE PPO [id number] 2023 00:00:00 Problems Condition Name Condition Details Condition Category Status Onset Date Resolution Date Last Treatment Date Treating Clinician Comments Source [id number] Acute urinary retention Problem [facility] [id number] Foreign body in bladder, initial encounter Problem [facility] [id number] Bladder mass Problem [facility] [id number] Gross hematuria Problem [facility] No known active problems No known active problems Disease [facility] [id number] Foreign body in urethra, initial encounter Problem [facility] [id number] Parkinsons disease Problem [facility] [id number] Voiding dysfunctio n Problem [facility] [id number] Bladder calculi Problem [facility] Allergies, Adverse Reactions, Alerts Allergy Name Allergy Type Status Severity Reaction(s) Onset Date Inactive Date Treating Clinician Comments Source SULFAMET HOXAZOLE DRUG INGREDI Active Rash 2002-07 00:00: 00 [facility] Sulfamet hoxazole Propensi ty to adverse reaction s Active Rash 2002-07 00:00: 00 [facility] Substanc e with sulfonam terri structur e and antibact erial mechanis m of action (substan ce) Substanc e with sulfonam terri structur e and antibact erial mechanis m of action (substan ce) Active Unknown [facility] Social History Social Habit Start Date Stop Date Quantity Comments Source Gender identity [facility] Sexual orientation [facility] Sex Assigned At [facility] History of Tobacco Use [facility] History of Social function 2023-12-11 00:00:00 2023-12-11 00:00:00 [facility] Exposure to SARS-CoV-2 (event) 2022-09-29 00:00:00 2022-10-09 21:11:00 Not sure [facility] Smoking Status Start Date Stop Date Source Tobacco smoking consumption unknown [facility] Ex-smoker 2022-09-26 00:00:00 2022-09-26 00:00:00 [facility] Never Smoker [facility] Medications Ordered Medication Name Filled Medication Name Start Date Stop Date Current Medication? Ordering Clinician Indication Dosage Frequency Signature (SIG) Comments Components Source acetaminoph en (TYLENOL) tablet 650 mg 01-27 18:45: 00 01-27 18:41 :00 No 650mg 650 mg, Oral, ONCE, 1 dose, On Sat01/27/23 at 1345, ADRIANE [facility] lidocaine 5 % (700 mg/patch) patch 01-27 00:00: 00 01-28 04:59 :00 No [id number] 1{patch } Apply 1 Patch to area(s) once now for 1 dose. [facility] clindamycin in 5 % dextrose (CLEOCIN) 600 mg/50 mL IV piggyback RTU 600 mg 12-21 21:45: 00 12-21 23:48 :00 No 600mg 600 mg, IV Piggyback, ONCE, 1 dose, On Sat12/21/22 at 1645, Administer over 30 Minutes, 50 mL
Reas on for Anti-Infec tive: Documented Infection< br>Documen bennie Infection Site: Skin / Soft Tissue
Duration of Therapy: Other (see Comments)< br>Restric bennie use approved by: ED PROVIDER [facility] cefTRIAXone (ROCEPHIN) 1,000 mg in NaCl 0.9% (NS) 100 mL MINI-BAG 12-21 20:15: 00 12-21 22:57 :00 No 1000mg 1,000 mg, IV Piggyback, ONCE, 1 dose, On Sat12/21/22 at 1515, Administer over 30 Minutes, 100 mL
Reas on for Anti-Infec tive: Empiric Therapy for Suspected Infection< br>Empiric Therapy Site: Urine
D uration of therapy: 72 hours [facility] L.acidop-L. bebe-B.bifi d-B.long (PROBIOTIC COLON SUPPORT) 70 mg (5 billion cell) [facility] 12-21 00:00: 00 01-19 04:59 :00 No [id number] 1{tbl} Take 1 tablet by mouth in the morning for 28 days. [facility] clindamycin 300 mg capsule 12-21 00:00: 00 01-01 04:59 :00 No [id number] 300mg Take 1 capsule by mouth 4 (four) times daily for 10 days. [facility] cephALEXin (KEFLEX) 500 mg capsule 12-21 00:00: 00 01-01 04:59 :00 No [id number] 500mg Take 1 capsule by mouth 4 (four) times daily for 10 days. [facility] NaCl 0.9% (NS) bolus infusion 500 mL 10-10 06:00: 00 10-10 05:59 :00 No 500mL at 999 mL/hr, 500 mL, IV Infusion, ONCE, 1 dose, On Sat10/10/22 at 0100, ADRIANE [facility] cefTRIAXone (ROCEPHIN) 1,000 mg in NaCl 0.9% (NS) 100 mL MINI-BAG 10-10 05:15: 00 10-10 05:48 :00 No 1000mg 1,000 mg, IV Piggyback, ONCE, 1 dose, On Sat10/10/22 at 0015, Administer over 30 Minutes, 100 mL
Reas on for Anti-Infec tive: Documented Infection< br>Documen bennie Infection Site: Urine
D uration of Therapy: Other (see Comments) [facility] acetaminoph en (TYLENOL) tablet 650 mg 10-10 05:15: 00 10-10 04:27 :00 No 650mg 650 mg, Oral, ONCE, 1 dose, On Sat10/10/22 at 0015, ADRIANE [facility] tadalafiL 5 mg tablet -18 00:00: 00 Yes 5mg Take 5 mg by mouth every morning. [facility] Linzess 145 mcg Linzess 145 mcg No Linzess 145 mcg Testosteron e Cypionate 100 MG/ML Testosteron e Cypionate 100 MG/ML No 1{ml} Testostero ne Cypionate 100 MG/ML Metoprolol Succinate 25 MG Metoprolol Succinate 25 MG No 1{capsu le} QD Metoprolol Succinate 25 MG Azilect 1 MG Azilect 1 MG No 1{table t} QD Azilect 1 MG Levothyroxi ne Sodium 125 MCG Levothyroxi ne Sodium 125 MCG No QD Levothyrox ine Sodium 125 MCG Amantadine HCl 100 MG Amantadine HCl 100 MG No 1{capsu le} QD Amantadine HCl 100 MG Rasagiline Mesylate 1 MG Rasagiline Mesylate 1 MG No 1{table t} QD Rasagiline Mesylate 1 MG Aspirin 81 81 MG Aspirin 81 81 MG No 1{table t} QD Aspirin 81 81 MG Tamsulosin HCl 0.4 MG Tamsulosin HCl 0.4 MG No 1{capsu le} QD Tamsulosin HCl 0.4 MG Carbidopa-L evodopa 25-100 MG Carbidopa-L evodopa 25-100 MG No 1{table t} TID Carbidopa- Levodopa 25-100 MG Immunizations Ordered Immunization Name Filled Immunization Name Date Status Comments Source SARS-COV-2 COVID-19 PFIZER VACCINE 2020-10-08 00:00:00 Completed [facility] SARS-COV-2 COVID-19 PFIZER VACCINE 2020-10-08 00:00:00 Completed [facility] SARS-COV-2 COVID-19 PFIZER VACCINE 2020-10-08 00:00:00 Completed [facility] SARS-COV-2 COVID-19 PFIZER VACCINE 2020-10-08 00:00:00 Completed [facility] SARS-COV-2 COVID-19 PFIZER VACCINE 2020-10-08 00:00:00 Completed [facility] SARS-COV-2 COVID-19 PFIZER VACCINE 2020-10-08 00:00:00 Completed [facility] SARS-COV-2 COVID-19 PFIZER VACCINE 2020-10-08 00:00:00 Completed [facility] SARS-COV-2 COVID-19 PFIZER VACCINE 2020-10-08 00:00:00 Completed [facility] SARS-COV-2 COVID-19 PFIZER VACCINE 2020-10-08 00:00:00 Completed [facility] SARS-COV-2 COVID-19 PFIZER VACCINE 2020-10-08 00:00:00 Completed [facility] SARS-COV-2 COVID-19 PFIZER VACCINE 2020-10-08 00:00:00 Completed [facility] SARS-COV-2 COVID-19 PFIZER VACCINE 2020-10-08 00:00:00 Completed [facility] SARS-COV-2 COVID-19 PFIZER VACCINE 2020-10-08 00:00:00 Completed [facility] SARS-COV-2 COVID-19 PFIZER VACCINE 2020-10-08 00:00:00 Completed [facility] SARS-COV-2 COVID-19 PFIZER VACCINE 2020-10-08 00:00:00 Completed [facility] SARS-COV-2 COVID-19 PFIZER VACCINE 2020-10-08 00:00:00 Completed [facility] SARS-COV-2 COVID-19 PFIZER VACCINE 2020-10-08 00:00:00 Completed [facility] SARS-COV-2 COVID-19 PFIZER VACCINE 2020-10-08 00:00:00 Completed [facility] SARS-COV-2 COVID-19 PFIZER VACCINE 2020-10-08 00:00:00 Completed [facility] SARS-COV-2 COVID-19 PFIZER VACCINE 2020-10-08 00:00:00 Completed [facility] SARS-COV-2 COVID-19 PFIZER VACCINE 2020-10-08 00:00:00 Completed [facility] SARS-COV-2 COVID-19 PFIZER VACCINE 2020-10-08 00:00:00 Completed [facility] SARS-COV-2 COVID-19 PFIZER VACCINE 2020-10-08 00:00:00 Completed [facility] SARS-COV-2 COVID-19 PFIZER VACCINE 2020-10-08 00:00:00 Completed [facility] SARS-COV-2 COVID-19 PFIZER VACCINE 2020-10-08 00:00:00 Completed [facility] SARS-COV-2 COVID-19 PFIZER VACCINE 2020-10-08 00:00:00 Completed [facility] SARS-COV-2 COVID-19 PFIZER VACCINE 2020-10-08 00:00:00 Completed [facility] SARS-COV-2 COVID-19 PFIZER VACCINE 2020-10-08 00:00:00 Completed [facility] SARS-COV-2 COVID-19 PFIZER VACCINE 2020-10-08 00:00:00 Completed [facility] SARS-COV-2 COVID-19 PFIZER VACCINE 2020-10-08 00:00:00 Completed [facility] SARS-COV-2 COVID-19 PFIZER VACCINE 2020-09-17 00:00:00 Completed [facility] SARS-COV-2 COVID-19 PFIZER VACCINE 2020-09-17 00:00:00 Completed [facility] SARS-COV-2 COVID-19 PFIZER VACCINE 2020-09-17 00:00:00 Completed [facility] SARS-COV-2 COVID-19 PFIZER VACCINE 2020-09-17 00:00:00 Completed [facility] SARS-COV-2 COVID-19 PFIZER VACCINE 2020-09-17 00:00:00 Completed [facility] SARS-COV-2 COVID-19 PFIZER VACCINE 2020-09-17 00:00:00 Completed [facility] SARS-COV-2 COVID-19 PFIZER VACCINE 2020-09-17 00:00:00 Completed [facility] SARS-COV-2 COVID-19 PFIZER VACCINE 2020-09-17 00:00:00 Completed [facility] SARS-COV-2 COVID-19 PFIZER VACCINE 2020-09-17 00:00:00 Completed [facility] SARS-COV-2 COVID-19 PFIZER VACCINE 2020-09-17 00:00:00 Completed [facility] SARS-COV-2 COVID-19 PFIZER VACCINE 2020-09-17 00:00:00 Completed [facility] SARS-COV-2 COVID-19 PFIZER VACCINE 2020-09-17 00:00:00 Completed [facility] SARS-COV-2 COVID-19 PFIZER VACCINE 2020-09-17 00:00:00 Completed [facility] SARS-COV-2 COVID-19 PFIZER VACCINE 2020-09-17 00:00:00 Completed [facility] SARS-COV-2 COVID-19 PFIZER VACCINE 2020-09-17 00:00:00 Completed [facility] SARS-COV-2 COVID-19 PFIZER VACCINE 2020-09-17 00:00:00 Completed [facility] SARS-COV-2 COVID-19 PFIZER VACCINE 2020-09-17 00:00:00 Completed [facility] SARS-COV-2 COVID-19 PFIZER VACCINE 2020-09-17 00:00:00 Completed [facility] SARS-COV-2 COVID-19 PFIZER VACCINE 2020-09-17 00:00:00 Completed [facility] SARS-COV-2 COVID-19 PFIZER VACCINE 2020-09-17 00:00:00 Completed [facility] SARS-COV-2 COVID-19 PFIZER VACCINE 2020-09-17 00:00:00 Completed [facility] SARS-COV-2 COVID-19 PFIZER VACCINE 2020-09-17 00:00:00 Completed [facility] SARS-COV-2 COVID-19 PFIZER VACCINE 2020-09-17 00:00:00 Completed [facility] SARS-COV-2 COVID-19 PFIZER VACCINE 2020-09-17 00:00:00 Completed [facility] SARS-COV-2 COVID-19 PFIZER VACCINE 2020-09-17 00:00:00 Completed [facility] SARS-COV-2 COVID-19 PFIZER VACCINE 2020-09-17 00:00:00 Completed [facility] SARS-COV-2 COVID-19 PFIZER VACCINE 2020-09-17 00:00:00 Completed [facility] SARS-COV-2 COVID-19 PFIZER VACCINE 2020-09-17 00:00:00 Completed [facility] SARS-COV-2 COVID-19 PFIZER VACCINE 2020-09-17 00:00:00 Completed [facility] SARS-COV-2 COVID-19 PFIZER VACCINE 2020-09-17 00:00:00 Completed [facility] SARS-COV-2 COVID-19 PFIZER VACCINE Unknown Completed [facility] SARS-COV-2 COVID-19 PFIZER VACCINE Unknown Completed [facility] SARS-COV-2 COVID-19 PFIZER VACCINE Unknown Completed [facility] SARS-COV-2 COVID-19 PFIZER VACCINE Unknown Completed [facility] SARS-COV-2 COVID-19 PFIZER VACCINE Unknown Completed [facility] SARS-COV-2 COVID-19 PFIZER VACCINE Unknown Completed [facility] SARS-COV-2 COVID-19 PFIZER VACCINE Unknown Completed [facility] SARS-COV-2 COVID-19 PFIZER VACCINE Unknown Completed [facility] SARS-COV-2 COVID-19 PFIZER VACCINE Unknown Completed [facility] SARS-COV-2 COVID-19 PFIZER VACCINE Unknown Completed [facility] SARS-COV-2 COVID-19 PFIZER VACCINE Unknown Completed [facility] SARS-COV-2 COVID-19 PFIZER VACCINE Unknown Completed [facility] SARS-COV-2 COVID-19 PFIZER VACCINE Unknown Completed [facility] SARS-COV-2 COVID-19 PFIZER VACCINE Unknown Completed [facility] SARS-COV-2 COVID-19 PFIZER VACCINE Unknown Completed [facility] SARS-COV-2 COVID-19 PFIZER VACCINE Unknown Completed [facility] SARS-COV-2 COVID-19 PFIZER VACCINE Unknown Completed [facility] SARS-COV-2 COVID-19 PFIZER VACCINE Unknown Completed [facility] SARS-COV-2 COVID-19 PFIZER VACCINE Unknown Completed [facility] SARS-COV-2 COVID-19 PFIZER VACCINE Unknown Completed [facility] SARS-COV-2 COVID-19 PFIZER VACCINE Unknown Completed [facility] SARS-COV-2 COVID-19 PFIZER VACCINE Unknown Completed [facility] SARS-COV-2 COVID-19 PFIZER VACCINE Unknown Completed [facility] SARS-COV-2 COVID-19 PFIZER VACCINE Unknown Completed [facility] SARS-COV-2 COVID-19 PFIZER VACCINE Unknown Completed [facility] SARS-COV-2 COVID-19 PFIZER VACCINE Unknown Completed [facility] SARS-COV-2 COVID-19 PFIZER VACCINE Unknown Completed [facility] SARS-COV-2 COVID-19 PFIZER VACCINE Unknown Completed [facility] SARS-COV-2 COVID-19 PFIZER VACCINE Unknown Completed [facility] SARS-COV-2 COVID-19 PFIZER VACCINE Unknown Completed [facility] SARS-COV-2 COVID-19 PFIZER VACCINE Unknown Completed [facility] SARS-COV-2 COVID-19 PFIZER VACCINE Unknown Completed [facility] SARS-COV-2 COVID-19 PFIZER VACCINE Unknown Completed [facility] SARS-COV-2 COVID-19 PFIZER VACCINE Unknown Completed [facility] SARS-COV-2 COVID-19 PFIZER VACCINE Unknown Completed [facility] SARS-COV-2 COVID-19 PFIZER VACCINE Unknown Completed [facility] SARS-COV-2 COVID-19 PFIZER VACCINE Unknown Completed [facility] SARS-COV-2 COVID-19 PFIZER VACCINE Unknown Completed [facility] Vital Signs Vital Name Observation Time Observation Value Comments S ource Systolic blood pressure 2023-01-27 18:24:00 104 mm[Hg] [facility] Diastolic blood pressure 2023-01-27 18:24:00 70 mm[Hg] [facility] Heart rate 2023-01-27 18:24:00 79 /min Unive [facility] Body temperature 2023-01-27 18:24:00 36.67 Lizett [facility] Respiratory rate 2023-01-27 18:24:00 18 /min [facility] Body weight 2023-01-27 18:24:00 57.607 kg [facility] BMI 2023-01-27 18:24:00 18.75 kg/m2 [facility] Oxygen saturation in Arterial blood by Pulse oximetry 2023-01-27 18:24:00 99 /min [facility] Body weight 2022-12-26 15:34:00 57.607 kg [facility] BMI 2022-12-26 15:34:00 18.75 kg/m2 [facility] Systolic blood pressure 2022-12-24 16:20:00 110 mm[Hg] [facility] Diastolic blood pressure 2022-12-24 16:20:00 73 mm[Hg] [facility] Heart rate 2022-12-24 16:20:00 73 /min Unive [facility] Body temperature 2022-12-24 16:20:00 36.83 Lizett [facility] Respiratory rate 2022-12-24 16:20:00 18 /min [facility] Body weight 2022-12-24 16:20:00 57.607 kg [facility] BMI 2022-12-24 16:20:00 18.75 kg/m2 [facility] Oxygen saturation in Arterial blood by Pulse oximetry 2022-12-24 16:20:00 98 /min [facility] Systolic blood pressure 2022-12-22 01:00:00 124 mm[Hg] [facility] Diastolic blood pressure 2022-12-22 01:00:00 88 mm[Hg] [facility] Heart rate 2022-12-22 01:00:00 79 /min Unive [facility] Respiratory rate 2022-12-22 01:00:00 16 /min [facility] Oxygen saturation in Arterial blood by Pulse oximetry 2022-12-22 01:00:00 99 /min [facility] Body temperature 2022-12-21 19:44:00 36.22 Lizett [facility] Body height 2022-12-21 19:44:00 175.3 cm [facility] Body weight 2022-12-21 19:44:00 54.432 kg [facility] BMI 2022-12-21 19:44:00 17.72 kg/m2 [facility] Systolic blood pressure 2022-10-10 06:00:00 132 mm[Hg] [facility] Diastolic blood pressure 2022-10-10 06:00:00 85 mm[Hg] [facility] Heart rate 2022-10-10 06:00:00 73 /min Unive [facility] Body temperature 2022-10-10 06:00:00 36.06 Lizett [facility] Respiratory rate 2022-10-10 06:00:00 18 /min [facility] Oxygen saturation in Arterial blood by Pulse oximetry 2022-10-10 06:00:00 98 /min [facility] Body height 2022-10-10 02:15:00 175.3 cm [facility] Body weight 2022-10-10 02:15:00 54.432 kg [facility] BMI 2022-10-10 02:15:00 17.72 kg/m2 [facility] Systolic blood pressure 2022-09-26 17:38:00 128 mm[Hg] [facility] Diastolic blood pressure 2022-09-26 17:38:00 91 mm[Hg] [facility] Heart rate 2022-09-26 17:38:00 73 /[facility] 2022-09-26 17:38:00 36.44 Lizett [facility] Respiratory rate 2022-09-26 17:38:00 16 /min [facility] Body height 2022-09-26 17:38:00 177.8 cm [facility] Body weight 2022-09-26 17:38:00 55.883 kg [facility] BMI 2022-09-26 17:38:00 17.68 kg/m2 [facility] height 2022-09-05 08:45:00 70 [in_i] Commo n [facility] weight 2022-09-05 08:45:00 125 [lb_av] Comm on [facility] temperature 2022-09-05 08:45:00 97.3 [degF] Com mon [facility] bmi 2022-09-05 08:45:00 17.93 kg/m2 Comm on [facility] oximetry 2022-09-05 08:45:00 96 % Commo n [facility] respiratory rate 2022-09-05 08:45:00 18 /min [facility] blood pressure systolic 2022-09-05 08:45:00 96 mm[Hg] [facility] blood pressure diastolic 2022-09-05 08:45:00 70 mm[Hg] [facility] Systolic blood pressure 2021-11-23 15:18:00 196 mm[Hg] [facility] Diastolic blood pressure 2021-11-23 15:18:00 102 mm[Hg] [facility] Heart rate 2021-11-23 15:08:00 98 /min [facility] Respiratory rate 2021-11-23 15:08:00 18 /min [facility] Body height 2021-11-23 15:08:00 177.8 cm [facility] Body weight 2021-11-23 15:08:00 57.153 kg [facility] BMI 2021-11-23 15:08:00 18.08 kg/m2 [facility] Oxygen saturation in Arterial blood by Pulse oximetry 2021-11-23 15:08:00 98 /min [facility] Procedures Procedure Date / Time Performed Performing Clinician Source DME/SUPPLY JUSTIFICATION 2023-08-20 06:01:00 Doc liam Unassigned, [place] [facility] DME/SUPPLY JUSTIFICATION 2023-08-06 06:01:00 Doc liam Unassigned, [place] [facility] HOME HEALTH - OTHER 2023-06-26 06:01:00 Doctor Brad irving, [place] [facility] PHYSICIAN ORDERS 2023-06-03 06:01:00 Doctor Stephane signed, [place] [facility] XR LUMBAR SPINE 3 VW 2023-01-27 19:22:44 Meghan Parker am A [facility] XR SACRUM AND COCCYX 2023-01-27 19:22:44 Meghan Parker am A [facility] XR HIPS 2 VW LEFT 2023-01-27 19:22:44 Spring Parker [facility] XR PELVIS <3 VW 2023-01-27 19:22:44 Spring Parker [facility] CONSENT/REFUSAL FOR DIAGNOSIS AND TREATMENT 2023-01-27 18:21:07 Doctor Unassigned, [place] [facility] EKG-12 LEAD 2022-12-21 23:52:04 Danisha Cat [facility] URINALYSIS 2022-12-21 21:21:00 Danisha Cat [facility] LACTIC ACID WHOLE BLOOD 2022-12-21 21:04:00 Sanket Cat [facility] BLOOD CULTURE SCREEN 2022-12-21 21:01:00 Danisha Cat [facility] LIPASE 2022-12-21 21:01:00 Danisha Cat [facility] TROPONIN I 2022-12-21 21:01:00 Danisha Cat [facility] COMP. METABOLIC PANEL ([id number]) 2022-12-21 21:01:00 Danisha Cat [facility] CBC WITH DIFF 2022-12-21 21:01:00 Danisha Cat [facility] N-TERMINAL PRO-BNP 2022-12-21 21:01:00 Danisha Cat [facility] CONSENT/REFUSAL FOR DIAGNOSIS AND TREATMENT 2022-12-21 19:40:32 Doctor Unassigned, [place] [facility] URINALYSIS 2022-10-10 03:47:00 Litzy Bucio [facility] BASIC METABOLIC PANEL (NA, K, CL, CO2, GLUCOSE, BUN, CREATININE, CA) 2022-10-10 03:31:00 Litzy Bucio [facility] CBC WITH DIFF 2022-10-10 03:31:00 Fortunato [facility] CONSENT/REFUSAL FOR DIAGNOSIS AND TREATMENT 2022-10-10 02:06:10 Doctor Unassigned, [place] [facility] PATIENT FINANCIAL POLICY 2022-09-26 17:24:09 Doctor Unassigned, [place] [facility] ASSIGNMENT OF BENEFITS 2022-09-26 17:23:45 Docto r Unassigned, [place] [facility] CONSENT/REFUSAL FOR DIAGNOSIS AND TREATMENT 2022-09-26 17:23:32 Doctor Unassigned, [place] [facility] PHYSICIAN ORDERS 2022-08-03 06:01:00 Doctor Unas signed, [place] [facility] Encounters Start Date/Time End Date/Time Encounter Type Admission Type Attending Clinicians Care Facility Care Department Encounter ID Source 2023-12-06 07:39:00 Outpatient [facility] [id number] [facility] 2022-09-05 08:37:01 Outpatient [facility] [id number] [facility] 2022-09-03 14:13:01 Outpatient [facility] [id number] [facility] 2022-08-21 11:00:03 Outpatient [facility] [id number] [facility] 2021-08-16 13:49:12 Outpatient [facility] [id number] [facility] 2024-02-05 10:00:00 2024-02-05 10:00:00 Outpatient R FLORIAN [facility] [id number] [facility] 2024-01-16 00:00:00 2024-01-16 11:00:14 Telephone Florian [facility] 1.2.840.114 350.1.13.10 4.2.7.2.686 [id number] 204 [id number] [facility] 2024-01-02 00:00:00 2024-01-02 10:46:45 Telephone Florian [facility] PRIMARY AND SPECIALTY CARE 1.2.840.114 350.1.13.10 4.2.7.2.686 [id number] 204 [id number] [facility] 2023-12-18 00:00:00 2023-12-23 09:43:13 Telephone Florian [facility] BUILDING 1.2.840.114 350.1.13.10 4.2.7.2.686 [id number] 204 [id number] [facility] 2023-12-11 16:00:00 2023-12-11 16:15:00 Office Visit Teresalawsonstephen [facility] BUILDING 1.2.840.114 350.1.13.10 4.2.7.2.686 [id number] 204 [id number] [facility] 2023-12-11 16:00:00 2023-12-11 16:00:00 Outpatient R MIKEL [facility] [id number] [facility] 2023-12-10 11:30:00 2023-12-10 11:30:00 Outpatient R FLORIAN [facility] [id number] [facility] 2023-12-03 00:00:00 2023-12-04 10:21:18 [facility] 1.2.840.114 350.1.13.10 4.2.7.2.686 [id number] 204 [id number] [facility] 2023-12-02 00:00:00 2023-12-03 09:22:51 [facility] 1.2.840.114 350.1.13.10 4.2.7.2.686 [id number] 204 [id number] [facility] 2023-10-22 16:30:00 2023-10-22 16:30:00 Outpatient R FLORIAN [facility] [id number] [facility] 2023-09-17 16:30:00 2023-09-17 16:30:00 Outpatient R FLORIAN [facility] [id number] [facility] 2023-08-27 08:15:00 2023-08-27 08:15:00 Outpatient R FLORIAN [facility] [id number] [facility] 2023-08-20 00:00:00 2023-08-20 00:00:00 Orders Only Doctor Unassigned, [place] [facility] 1.2840.114 350.1.13.10 4.2.7.2.686 [id number] 009 [id number] [facility] 2023-08-06 00:00:00 2023-08-06 00:00:00 Orders Only Doctor Unassigned, [place] [facility] 1.2840.114 350.1.13.10 4.2.7.2.686 [id number] 009 [id number] [facility] 2023-08-06 00:00:00 2023-08-06 00:00:[address] [facility] 1.2.840.114 350.1.13.10 4.2.7.2.686 [id number] 204 [id number] [facility] 2023-07-12 00:00:00 2023-07-12 00:00:00 Telephone Florian [facility] BUILDING 1.2.840.114 350.1.13.10 4.2.7.2.686 [id number] 204 [id number] [facility] 2023-06-26 00:00:00 2023-06-26 00:00:00 Orders Only Doctor Unassigned, [place] [facility] 1.2.840.114 350.1.13.10 4.2.7.2.686 [id number] 009 [id number] [facility] 2023-06-21 00:00:00 2023-06-21 00:00:00 [facility] 1.2.840.114 350.1.13.10 4.2.7.2.686 [id number] 204 [id number] [facility] 2023-06-03 00:00:00 2023-06-03 00:00:00 Orders Only Doctor Unassigned, [place] [facility] 1.2.840.114 350.1.13.10 4.2.7.2.686 [id number] 009 [id number] [facility] 2023-05-31 00:00:00 2023-05-31 00:00:00 Telephone [facility] BUILDING 1.2.840.114 350.1.13.10 4.2.7.2.686 [id number] 204 [id number] [facility] 2023-01-27 13:26:00 2023-01-27 15:03:00 Emergency X SPRING PARKER [facility] ERT [id number] [facility] 2023-01-27 13:26:00 2023-01-27 15:03:00 Emergency Spring Parker [facility] 1.2.840.114 350.1.13.10 4.2.7.2.686 [id number] [id number] [facility] 2022-12-26 10:00:00 2022-12-26 14:29:34 Nurse Visit Nurse, [facility] Surgery Ulises Florian [facility] 1.2.840.114 350.1.13.10 4.2.7.2.686 [id number] 204 [id number] [facility] 2022-12-26 10:00:00 2022-12-26 10:00:00 [facility] [id number] [facility] 2022-12-24 11:00:00 2022-12-24 12:28:50 Outpatient R ELAINE BARROSTNEY [facility] [id number] [facility] 2022-12-24 11:00:00 2022-12-24 12:28:50 [facility] 1.2.840.114 350.1.13.10 4.2.7.2.686 [id number] 204 [id number] [facility] 2022-12-21 14:57:00 2022-12-21 21:27:00 Emergency X DANISHA CAT [facility] ERT [id number] [facility] 2022-12-21 14:57:00 2022-12-21 21:27:00 Emergency Danisha Cat [facility] 1.2.840.114 350.1.13.10 4.2.7.2.686 [id number] 084 [id number] [facility] 2022-10-24 14:30:00 2022-10-24 14:30:00 Outpatient R [facility] [id number] [facility] 2022-10-16 13:30:00 2022-10-16 14:34:09 Outpatient R FLORIAN [facility] [id number] [facility] 2022-10-15 00:00:00 2022-10-15 00:00:[address] 1.2.840.114 350.1.13.10 4.2.7.2.686 [id number] 204 [id number] [facility] 2022-10-12 10:00:00 2022-10-12 10:15:00 Production Wood Craftsman Visit 2, [facility] 1.2.840.114 350.1.13.10 4.2.7.2.686 [id number] [facility] 2022-10-12 10:00:00 2022-10-12 10:00:00 Outpatient R FLORIAN [facility] [id number] [facility] 2022-10-09 21:17:00 2022-10-10 01:13:00 [facility] [id number] [facility] 2022-10-09 21:17:00 2022-10-10 01:13:00 Emergency Ragley, [facility] 1.2.840.114 350.1.13.10 4.2.7.2.686 [id number] [id number] [facility] 2022-10-09 00:00:00 2022-10-09 00:00:00 Telephone Florian [facility] BUILDING 1.2.840.114 350.1.13.10 4.2.7.2.686 [id number] 204 [id number] [facility] 2022-10-05 14:20:00 2022-10-05 14:20:00 Outpatient R JULIO C, DAYO [facility] [id number] [facility] 2022-10-05 11:00:00 2022-10-05 12:00:00 Nurse Visit Nurse, [facility] Surgery Gu Teresabreezy [facility] 1.2.840.114 350.1.13.10 4.2.7.2.686 [id number] [facility] 2022-10-05 11:00:00 2022-10-05 11:00:00 Outpatient R FLORIAN [facility] [id number] [facility] 2022-10-05 00:00:00 2022-10-05 00:00:00 Telephone Florian [facility] 1.2.840.114 350.1.13.10 4.2.7.2.686 [id number] [facility] 2022-10-05 00:00:00 2022-10-05 00:00:00 Telephone Florian [facility] 1.2.840.114 350.1.13.10 4.2.7.2.686 [id number] [facility] 2022-10-04 00:00:00 2022-10-04 00:00:00 Telephone Florian [facility] BUILDING 1.2.840.114 350.1.13.10 4.2.7.2.686 [id number] 204 [id number] [facility] 2022-10-04 00:00:00 2022-10-04 00:00:00 Telephone Florian [facility] 1.2.840.114 350.1.13.10 4.2.7.2.686 [id number] 204 [id number] [facility] 2022-10-02 00:00:00 2022-10-02 00:00:00 [facility] 1.2.840.114 350.1.13.10 4.2.7.2.686 [id number] 204 [id number] [facility] 2022-09-26 11:30:00 2022-09-26 12:52:26 Outpatient R FLORIAN [facility] [id number] [facility] 2022-09-26 11:30:00 2022-09-26 12:52:26 Office Visit Florian [facility] 1.2.840.114 350.1.13.10 4.2.7.2.686 [id number] 204 [id number] [facility] 2022-09-26 00:00:00 2022-09-26 00:00:00 Orders Only Doctor Unassigned, [place] [facility] 1.2.840.114 350.1.13.10 4.2.7.2.686 [id number] 009 [id number] [facility] 2022-09-05 00:00:00 2022-09-05 00:00:00 OFFICE VISIT ESTAB PT LEVEL 3 STLMLC STLMLC [id number] [facility] 2022-08-03 00:00:00 2022-08-03 00:00:00 [facility] 1.2.840.114 350.1.13.10 4.2.7.2.686 [id number] 204 [id number] [facility] 2022-08-03 00:00:00 2022-08-03 00:00:00 Orders Only Doctor Unassigned, [place] [facility] 1.2.840.114 350.1.13.10 4.2.7.2.686 [id number] 009 [id number] [facility] 2021-11-23 09:30:00 2021-11-23 10:00:00 Office Visit Mikel Du Rm, [facility] BU[facility] 1.2.840.114 350.1.13.10 4.2.7.2.686 [id number] 204 [id number] [facility] 2021-11-23 09:30:00 2021-11-23 09:30:00 [facility] [id number] [facility] 2021-11-22 10:15:00 2021-11-22 10:30:00 Production Wood Craftsman Visit 2, Adc Lab Florian [facility] BUILDING 1.2.840.114 350.1.13.10 4.2.7.2.686 [id number] [facility] 2021-11-22 10:15:00 2021-11-22 10:15:00 Outpatient R MIKEL DU [facility] [id number] [facility] 2021-11-16 00:00:00 2021-11-16 00:00:00 Telephone Arlette Romo [facility] BUILDING 1.2.840.114 350.1.13.10 4.2.7.2.686 [id number] [facility] 2021-11-16 00:00:00 2021-11-16 00:00:00 Telephone Mikel Du [facility] 1.2.840.114 350.1.13.10 4.2.7.2.686 [id number] [facility] 2021-11-15 00:00:00 2021-11-15 00:00:00 Telephone Mikel Du [facility] 1.2.840.114 350.1.13.10 4.2.7.2.686 [id number] [facility] 2021-11-15 00:00:00 2021-11-15 00:00:00 Telephone Florian [facility] 1.2.840.114 350.1.13.10 4.2.7.2.686 [id number] 204 [id number] [facility] 2021-11-13 10:30:00 2021-11-13 10:45:00 Production Wood Craftsman Visit 2, [facility]c [facility] 1.2840.114 350.1.13.10 4.2.7.2.686 [id number] [facility] 2021-11-13 10:30:00 2021-11-13 10:30:00 [facility] [id number] [facility] 2021-10-10 00:00:00 2021-10-10 00:00:00 Telephone Florian [facility] BUILDING 1.2840.114 350.1.13.10 4.2.7.2.686 [id number] [facility] 2021-09-25 08:00:00 2021-09-25 10:01:33 Outpatient R FLORIAN [facility] [id number] [facility] 2021-09-25 08:00:00 2021-09-25 10:01:33 Office Visit Florian [facility] BUILDING 1.2840.114 350.1.13.10 4.2.7.2.686 [id number] [facility] 2021-09-25 00:00:00 2021-09-25 00:00:00 Orders Only Doctor Unassigned, [place] [facility] 1.2840.114 350.1.13.10 4.2.7.2.686 [id number] [id number] [facility] 2020-09-17 09:05:00 2020-09-17 09:05:00 Outpatient BINDU WALKER [facility] [id number] [facility] Results Test Description Test Time Test Comments Results Result Co mments Source [facility] (NA, K, CL, CO2, GLUCOSE, BUN, CREATININE, CA)2022-10-10 04:05:31* Test Item Value Reference Range Interpretation Comme nts NA (test code = 2767574645) 142 mmol/L 135-145 K (test code = 7929969805) 3.8 mmol/L 3.5-5.0 CL (test code = 6912621929) 104 mmol/L 98-108 CO2 TOTAL (test code = 4580831837) 29 mmol/L 23-31 AGAP (test code = 6808268790) 9 2-16 BUN (test code = 7284508563) 41 mg/dL 7-23 H GLUCOSE (test code = 9734602207) 81 mg/dL 70-110 CREATININE (test code = 7246183086) 0.83 mg/dL 0.60-1.25 CALCIUM (test code = 5735117670) 9.3 mg/dL 8.6-10.6 eGFR (test code = 6331432188) 89.4 mL/min/1.73m2 JO (test code = JO) Association of Glomerular Filtration Rate (GFR) and Staging of Kidney Disease* + --+ --+ ------+| GFR (mL/min/1.73 m2) ?| With Kidney Damage ?| ?Without Kidney Damage+ --------+ --------+ +| ?>90 ?| ?Stage one ?| ? Normal ?+ ---+ ---+ -------+| ?60-89 ?| ?Stage two ?| ? Decreased GFR ? + --+ --+ ------+| ?30-59 ?| ?Stage three ?| ? Stage three ? + --+ --+ ------+| ?15-29 ?| ?Stage four ? | ? Stage four ?+ ---+ ---+ -------+| ?<15 (or dialysis) ? ?| ?Stage five ? | ? Stage five ?+ ---+ ---+ -------+ *Each stage assumes the associated GFR level has been in effect for at least three months. ?Stages 1 to 5, with or without kidney disease, indicate chronic kidney disease. Notes: Determination of stages one and two (with eGFR >59mL/min/1.73 m2) requires estimation of kidney damage for at least three months as defined by structural or functional abnormalities of the kidney, manifested by either:Pathological abnormalities or Markers of kidney damage (including abnormalities in the composition of the blood or urine or abnormalities in imaging tests). Lab Interpretation (test code = 42053-9) Abnormal [facility] WITH GMFJ6750-94-73 03:40:05* Test Item Value Reference Range Interpretation Comme nts WBC (test code = 6690-2) 5.86 See_Comment [Automated [employer]] The system which generated this result transmitted reference range: 4.20 - 10.70 10*3/?L. The reference range was not used to interpret this result as normal/abnormal. RBC (test code = 789-8) 3.20 See_Comment L [Automated [employer]] The system which generated this result transmitted reference range: 4.26 - 5.52 10*6/?L. The reference range was not used to interpret this result as normal/abnormal. HGB (test code = 718-7) 9.7 g/dL 12.2-16.4 L HCT (test code = 4544-3) 30.0 % 38.4-49.3 L MCV (test code = 787-2) 93.8 fL 81.7-95.6 MCH (test code = 785-6) 30.3 pg 26.1-32.7 MCHC (test code = 786-4) 32.3 g/dL 31.2-35.0 RDW-SD (test code = 15406-0) 48.5 fL 38.5-51.6 RDW-CV (test code = 788-0) 14.4 % 12.1-15.4 PLT (test code = 777-3) 269 See_Comment [Automated [employer]] The system which generated this result transmitted reference range: 150 - 328 10*3/?L. The reference range was not used to interpret this result as normal/abnormal. MPV (test code = 45804-9) 10.0 fL 9.8-13.0 NRBC/100 WBC (test code = 6371246514) 0.0 See_Comment [Automated me ssage] The system which generated this result transmitted reference range: 0.0 - 10.0 /100 WBCs. The reference range was not used to interpret this result as normal/abnormal. NRBC x10^3 (test code = 4768301740) See_Comment [Automated messa ge] The system which generated this result transmitted reference range: 10*3/?L. The reference range was not used to interpret this result as normal/abnormal. GRAN MAT (NEUT) % (test code = 770-8) 67.4 % IMM GRAN % (test code = 3582332522) 0.30 % LYMPH % (test code = 736-9) 17.7 % MONO % (test code = 5905-5) 9.0 % EOS % (test code = 713-8) 5.1 % BASO % (test code = 706-2) 0.5 % GRAN MAT x10^3(ANC) (test code = 5767600584) 3.94 10*3/uL 1.99-6.95 IMM GRAN x10^3 (test code = 8614283248) 0.00-0.06 LYMPH x10^3 (test code = 731-0) 1.04 10*3/uL 1.09-3.23 L MONO x10^3 (test code = 742-7) 0.53 10*3/uL 0.36-1.02 EOS x10^3 (test code = 711-2) 0.30 10*3/uL 0.06-0.53 BASO x10^3 (test code = 704-7) 0.03 10*3/uL 0.01-0.09 Lab Interpretation (test code = 12230-3) Abnormal [facility] Notes Date/Time Note Provider Source 2024-01-16 10:59:23 3007-76-40B97:59:23F ormatting of this note is different from the original.[employer] faxed in physicians order to be filled out and signed. Form placed in nurses basket. 90973-4Vbkxhctgj encounter QpkmXF9543-31-16O21:00:14Telephone encounter NoteTXT1.2.840.348478.1.13.104.2.7. 2.128325|[id number] for patient ipnd22946-4HrstQTCHTFPAVZFUklkupkar C-CDA narrative wwlu303801969Kabdc [id number] 7TAZYERWKBSTCLSJTHXJNMV4716-77-17R1 1:00:141.2.840.942387.1.72.3.15|1.2 .840.527886.1.13.104.2.7.2.727879_2 [id number] Chelo Dorantes [facility] 2024-01-02 10:41:00 1771-53-57P29:41:00F ormatting of this note might be different from the original.[employer] faxed in physicians order to be filled out and signed. Form placed in nurses basket. 52401-6Mgziqteow encounter CcaoAU7995-96-79A53:41:47Telephone encounter NoteTXT1.2.840.498707.1.13.104.2.7. 2.970368|5809386369HHQcazrwmoc for patient sfiv64884-1AtudIYGODJUJRLJDvtzxupdu C-CDA narrative yehk190686280Ahvumyb E [id number] 1OIWUSEBMMWMNKDZKWHRSGY4269-17-58M9 0:41:471.2.840.667186.1.72.3.15|1.2 .840.084205.1.13.104.2.7.2.727879_2 [id number] Citlaly Orourke [facility] 2023-12-23 09:42:29 7573-00-63O09:42:29F ormatting of this note might be different from the original.Spoke with [employer] and all questions answered. 39281-1Psocqjaep encounter XfwiEO6008-66-54Q69:43:13Telephone encounter NoteTXT1.2.840.661085.1.13.104.2.7. 2.834596|3281837919JAHnliheecv for patient pqly64271-8PgqdHHUCOEPVJBMFlhysglch C-CDA narrative llpw265825447Pwrzps A Hall RN[address] Nec[id number] 9HGSNZXEUWVEJBHZYFYFXBZ3345-35-83U5 9:43:131.2.840.401812.1.72.3.15|1.2 .840.410562.1.13.104.2.7.2.727879_2 [id number] Rhona Blanchard RN [facility] 2023-12-19 09:21:33 6372-45-50R40:21:33F ormatting of this note might be different from the original.Copied from [facility] #[id number]. Topic: Clinical - DME Request>> December 19, 2023 9:18 AM Patient Director [employer] wrote:Verito Lopez is a 78 year old maleShanna [facility] following up on verbal for orders for cath supplies. Advised of turn around time for encounters (2 days)Please expedte f/[facility]: [phone] opt 2 for the Urology Team. 49791-7Dwshytmfh encounter RjcmGE3965-76-96N56:22:24Telephone encounter NoteTXT1.2.840.912432.1.13.104.2.7. 2.746453|1556417032USEhdwcshub for patient gxqf44228-3JeclHTTVLIFXLTXOvjfixdiw C-CDA narrative pumh189129825Yeejh M [address] TewnHpogjmyrtYzcgdkjgoEERP751611967 3LNPUZPBKKTYAKKLHMWAUVV2543-73-61X8 9:22:241.2.840.024915.1.72.3.15|1.2 .840.848297.1.13.104.2.7.2.727879_2 [id number] Ines Vaca [facility] 2023-12-18 13:04:54 9496-21-25Q30:04:54F ormatting of this note might be different from the original.Copied from [facility] #[id number]. Topic: Clinical - Order>> December 18, 2023 1:04 PM Patient Director [employer] wrote:Verito Lopez is a 78 year old maleJudy w/[facility] is calling to request a verbal order for pt's cath supplies.Please expedte /[facility]: [phone] opt 2 for the Urology Team. 72520-3Mkyhgawwo encounter EwooHU1223-54-61I18:06:25Telephone encounter NoteTXT1.2.840.408120.1.13.104.2.7. 2.114381|0326779903BRUtgtfljvf for patient mtya90024-2HfxjZUWUJCPLIZVBvwsplrhz C-CDA narrative mhlg783576768Qjhup [address]Gal[address]onGalvestonTXTX[address] 1AFBPMXQERAGZFPIWWTCVQQ3500-27-76L1 3:06:251.2.840.224827.1.72.3.15|1.2 .840.667603.1.13.104.2.7.2.727879_2 [id number] Jaelyn Guallpa [facility] 2023-12-04 11:02:33 3056-56-96P53:02:33F ormatting of this note might [place] [address]-3Jlabpujba encounter SrphFW4626-16-05F67:02:41Telephone encounter NoteTXT1.2.840.820795.1.13.104.2.7. 2.786626|1735415613HWCtrehrovd for patient mnkf23652-5XuipSBHWVFJOOURRjdgcqfuq C-CDA narrative textURO-UROLOGY STAFFURO-UROLOGY STAFF[address]TXTX775557755 0HDZJKZAHEDSYQRRYFBPIVA0894-49-28J5 1:02:411.2.840.380421.1.72.3.15|1.2 .840.481031.1.13.104.2.7.2.727879_2 [id number] URO-UROLOGY STAFF [facility] 2023-12-04 10:20:58 3946-71-28N19:20:58F ormatting of this note might be different from the original.Pt scheduled for next Saturday 12/09 for TE appt. 60684-9Wfggpjwog encounter ZexpLT3800-51-54B52:21:18Telephone encounter NoteTXT1.2.840.249507.1.13.104.2.7. 2.258885|6009682355BQJgxwjtcxj for patient fxws32633-1RwfcENNXXPNIQVIXcizpaide C-CDA narrative hxnv479330897Qpydjth E [address] PhweLijrxwwabEreldddeqDEWS692218203 2DSXLHJCZIHPBTBDUILWNGT0568-75-09W7 0:21:181.2.840.337863.1.72.3.15|1.2 .840.688252.1.13.104.2.7.2.727879_2 [id number] Citlaly Orourke [facility] 2023-12-03 16:11:40 6287-57-47A75:11:40F ormatting of this note might be different from the original.Ok , schedule pleaseThanks 86669-0Mztytagfy encounter AemsKC6598-30-68T88:11:55Telephone encounter NoteTXT1.2.840.160546.1.13.104.2.7. 2.549185|7930962803MQRbmwewegz for patient tllz41521-3YfqkLSEJZHDURMVRapciompr C-CDA narrative textURO-UROLOGY STAFFURO-UROLOGY STAFF[address]TXTX775557755 0PLYWNCWVFNAXYLPUQPKBTS2969-80-07W4 6:11:551.2.840.742602.1.72.3.15|1.2 .840.733112.1.13.104.2.7.2.727879_2 [id number] URO-UROLOGY STAFF [facility] 2023-12-03 15:01:56 6704-54-23M31:01:56F ormatting of this note might be different from the original.See telephone encounter 12/03/23 59318-3Quwdfnaxl encounter FzeoWL8975-74-09R32:02:04Telephone encounter NoteTXT1.2.840.816470.1.13.104.2.7. 2.507006|[id number] for patient usrk72355-9BkhvUKDFOHMVCUWSykinpzev C-CDA narrative text[id number] 1LLHDYKMUJMUVSRBISPLFOI5670-79-12F3 5:02:041.2.840.812658.1.72.3.15|1.2 .840.440991.1.13.104.2.7.2.727879_2 [id number] [facility] 2023-12-03 11:20:55 6512-88-10C18:20:55F ormatting of this note might be different from the original.Images from the original note were not included.Previous encounter not allowing for editing. Please see message thread below, pt is wanting to know if this can be a telehealth visit as it is very hard for him to get out of the house. Please advise. 42143-9Lejmkrikl encounter SsbpXW2468-42-42K01:25:41Telephone encounter NoteTXT1.2.840.495584.1.13.104.2.7. 2.599537|[id number] for patient qrwx09743-1MvetYYAXFCEOIOBQfrmvpsnb C-CDA narrative [address] An[id number] 1RPFPGQDFBDSFTBBYAWHPMF5782-41-91V4 1:25:411.2.840.359260.1.72.3.15|1.2 .840.058640.1.13.104.2.7.2.727879_2 [id number] [facility] 2023-12-03 10:23:13 8247-92-90V85:23:13F ormatting of this note might be different from the original.Offer RTC to discuss surgery for the prostate to address recurrent UTI and chronic urine retention 86513-9Ejcwkrxrh encounter QizfJX8812-06-15X72:24:02Telephone encounter NoteTXT1.2.840.975845.1.13.104.2.7. 2.835696|[id number] for patient bmxv18345-1WxkzBHMDFATHKVEDxwnqguhz C-CDA narrative textURO-UROLOGY STAFFURO-[facility]FF[facility] Jsfdtz[address] [employer] Dy[id number] 8HXBPUNCTWYSURFKJXXVJQE7974-63-96B9 0:24:021.2.840.486283.1.72.3.15|1.2 .840.565569.1.13.104.2.7.2.727879_2 [id number] URO-UROLOGY STAFF [facility] 2023-12-03 09:21:29 6595-04-19Z15:21:29F ormatting of this note might be different from the original.Spoke with spouse, states patient contacted PCP and he was prescribed an antibiotic. Instructed to take ABT as ordered and to contact clinic / report to lab for urine culture if no improvement in symptoms with antibiotic. Spouse verbalized understanding. Routing to provider for notification. 09560-5Yrkzguigr encounter SdzzDI8290-70-92D43:22:51Telephone encounter NoteTXT1.2.840.217555.1.13.104.2.7. 2.387475|[id number] for patient xqhf35851-1FpzdNXXIKIVLXUUZmgouvckr C-CDA narrative text[address]Fg[id number] 3CXUYUXORRMQGKJKJJHZJJO8979-83-42N2 9:22:511.2.840.487091.1.72.3.15|1.2 .840.120915.1.13.104.2.7.2.727879_2 [id number] [facility] [facility] 2023-12-02 11:08:13 3526-95-44L06:08:13F ormatting of this note might be different from the original.Verito Lopez is a 78 year old male spouse is calling stating patient has UTI, urine bloody, mucus (in urine ) no odor x 1 day . Patient is requesting appointment .[id number] - [place], [place] - [address], [facility] [address] Fél[address] [facility] [address]Fgpts: [phone] Ptybeujgzjylue signed by Juhi Robles at 12/02/2023 11:10 AM [id number] encounter YapjXG8150-19-24H22:10:13Telephone encounter NoteTXT1.2.840.552206.1.13.104.2.7. 2.187353|[id number] for patient qmsv26810-8UhsfTHQEIQAPGKEUpahaitiw C-CDA narrative [id number] Frias[id number] 0ZQEZARHQISNERCZWHAFUCP7080-25-34K8 1:10:131.2.840.727198.1.72.3.15|1.2 .840.649389.1.13.104.2.7.2.727879_2 [id number] Juhi Robles [facility] 2023-08-20 15:29:25 6427-16-41Y58:29:25F ormatting of this note might be different from the original.Order faxed to [facility] at this time. 08793-4Ycyyymdaa encounter NrctSV4324-59-66G82:29:35Telephone encounter NoteTXT1.2.840.775882.1.13.104.2.7. 2.191890|[id number] for patient ttjn97126-9NdnhWZIORAONLNOPpeatctau C-CDA narrative [id number] A Hall RN[id number] 6RRBAWPTHVLPWAMSGAHPATI8383-94-36O6 5:29:351.2.840.249087.1.72.3.15|1.2 .840.066418.1.13.104.2.7.2.727879_2 [id number] Rhona Blanchard RN [facility] 2023-08-08 10:29:30 9229-27-68G01:29:30F ormatting of this note might be different from the original.Order printed and placed in provider folder for signature. 78619-6Satpggcjw encounter QpqmCF5501-41-70Q89:29:45Telephone encounter NoteTXT1.2.840.784797.1.13.104.2.7. 2.643599|[id number] for patient lrsf90183-5PjepSFZRRUPMSXJVfpphjons C-CDA narrative [id number] A Hall RN[id number] 3VQKDBPJPLXJPAAFZFBFSKA6373-13-27T6 0:29:451.2.840.167644.1.72.3.15|1.2 .840.356221.1.13.104.2.7.2.727879_2 [id number] Rhona Blanchard RN [facility] 2023-08-06 15:36:01 3430-86-65E59:36:01F ormatting of this note might be different from the original.Received order form from [facility] via emailForms scanned as DME into chart. 61288-0Jcvijbtde encounter YxceGX9854-64-44U27:38:04Telephone encounter NoteTXT1.2.840.963135.1.13.104.2.7. 2.799890|[id number] for patient ylmo95922-8MtjdJVFGIRRBXRXWwwboesru C-CDA narrative [id number] J Puente[id number] 6GDGXJWFDGYDMWWXQTQJGUL0393-82-68P5 5:38:041.2.840.206013.1.72.3.15|1.2 .840.938885.1.13.104.2.7.2.727879_2 [id number] Barbjana Morton [facility] 2023-07-12 15:46:35 2984-89-29R97:46:35F ormatting of this note might be different from the original.Received home health orders from [facility]. Placed in providers box for signature. 70520-7Suymhozkz encounter QqwhJH0048-90-44V10:47:16Telephone encounter NoteTXT1.2.840.928989.1.13.104.2.7. 2.671164|[id number] for patient dfau88005-1PjkdKYNZIBVCJQRSgdgweiwc C-CDA narrative [id number] M Reed[address] Jf[id number] 0DVQROKUTHUTKDYLVZWNSGC3712-98-74G1 5:47:161.2.840.509243.1.72.3.15|1.2 .840.378391.1.13.104.2.7.2.727879_1 [id number] Pam Kline [facility]"
[2024-01-20 11:52] LABS: Absolute Eosinophils 0.1 K/uL (0-0.5); Absolute Lymphocytes (CBC) 1.4 K/uL (0.7-4.9); Absolute Monocytes 0.8 K/uL (0.1-1.3); Absolute Neutrophil 7.1 K/uL (1.8-8.0); Basophils % 0.1 % (0-1.3); Eosinophils % 0.5 % (0-4.4); Hematocrit 34.4 % (39.6-49.0); Hemoglobin 11.1 g/dL (13.6-17.9); Lymphocytes % 15.2 % (15.3-44.8); MCH 27.1 pg (27.0-35.0); MCHC 32.2 g/dL (32.0-36.0); MCV 84.3 fL (80-100); MPV 7.6 fL (7.6-11.3); Monocytes % 8.6 % (3.3-12.3); Neutrophils % 75.6 % (41.7-73.7); Nucleated Red Blood Cells % 0.1 % (0-0); Platelets 275 thou/uL (152-406); RBC Red Blood Cell Count 4.08 M/uL (4.33-5.43); Red Cell Distribution Width 15.3 % (12.1-15.2)
[2024-01-20 12:07] LABS: AST/SGOT 22 U/L (15-37); Albumin 3.5 g/dL (3.4-5.0); Albumin/Globulin Ratio 0.9 (1.1-1.8); Alkaline Phosphatase 60 U/L (45-117); Anion Gap 6.7 mEq/L (5.0-15.0); BUN Blood Urea Nitrogen 25 mg/dL (7-18); Bicarbonate 32 mEq/L (21-32); Bilirubin Total 0.7 mg/dL (0.2-1.0); Globulin 3.8 g/dL (2.3-3.5); Glomerular Filtration Rate 77 ml/min (=/>90); Glucose Level 102 mg/dL (74-106); Potassium 3.7 mEq/L (3.5-5.1); Protein, Total 7.3 g/dL (6.4-8.2); Sodium Level 139 mEq/L (136-145)
[2024-01-20 12:09] LABS: ALT/SGPT < 14 U/L (16-61)
[2024-01-20 13:24] LABS: Specific Gravity 1.023 (1.005-1.030); Sqamous Epithelial <5 /HPF (None Seen); Urine Bacteria <20 /HPF (<20); Urine Bilirubin 1+ (Negative); Urine Blood 2+ (Negative); Urine Clarity Extremely Turbid (Clear); Urine Color Dark-Yellow (Yellow); Urine Crystals Unidentified Few /HPF (None Seen); Urine Culture Reflex Order REFLEXED; Urine Glucose NEGATIVE (Negative); Urine Ketones 1+ (Negative); Urine Micro Reflex YN NO BILL MICROSCOPIC; Urine Mucus 1+ /HPF (None Seen); Urine Nitrite 1+ (Negative); Urine Protein 2+ (Negative); Urine RBC >50 /HPF (None Seen); Urine Urobilinogen 1+ (Normal); Urine WBC >50 /HPF (<5); Urine WBC Clump Moderate /HPF (None Seen); Urine pH 6.5 (5.0-7.0)
--- NOTE | 2024-01-20 16:05 | ER ---
Nurse's Notes [facility] Name: Gaurav Hector Age: 78 yrs Sex: Male : 1945 Arrival Date: 01/20/2024 Time: 11:08 Bed 5 Private MD: Diagnosis: UTI/ Urinary tract infection, site not specified Presentation: 01/19 11:20 Chief complaint: Patient states: Frequent UTI's. Noticed pus in urine today, no fever. ll1 Coronavirus screen: Client denies travel out of the [place] in the last 14 days. At this time, the client does not indicate any symptoms associated with coronavirus-19. Ebola Screen: Patient denies travel to an Ebola-affected area in the 21 days before illness onset. Initial Sepsis Screen: Does the patient meet any 2 criteria? No. Patient's initial sepsis screen is negative. Does the patient have a suspected source of infection? No. Patient's initial sepsis screen is negative. Risk Assessment: Do you want to hurt yourself or someone else? Patient reports no desire to harm self or others. Onset of symptoms was January 20, 2024. 11:20 Method Of Arrival: Wheelchair ll1 11:20 Acuity: GO 3 ll1 Triage Assessment: 11:21 General: Appears uncomfortable, ill, Behavior is calm, cooperative, appropriate for 1 age. Pain: Denies pain. : Reports pus in urine with straight cath. Historical: - Allergies: 11:20 Sulfa (Sulfonamide Antibiotics); ll1 - PMHx: 11:20 Hypothyroidism; Parkinsons; ll1 - PSHx: 11:20 Adenoid excision; Tonsillectomy; ll1 - Immunization history:: Adult Immunizations up to date. - Infectious Disease History:: Denies. - Social history:: Smoking status: Patient denies any tobacco usage or history of. Screenin:39 [facility] ED Fall Risk Assessment (Adult) History of falling in the last 3 months, ph including since admission No falls in past 3 months (0 pts) Confusion or Disorientation No (0 pts) Intoxicated or Sedated No (0 pts) Impaired Gait Yes (1 pt) Mobility Assist Device Used Yes (1 pt) Altered Elimination Yes (1 pt) Score/Fall Risk Level 3 or more points = High Risk Oriented to surroundings, Maintained a safe environment, Hourly rounding (assess needs \T\ fall precautionary measures) done, Used ambulatory aids as needed (educated on \T\ assisted with), Utilized family, sitter, or virtual human resources project manager as indicated. Abuse screen: Denies threats or abuse. Denies injuries from another. Nutritional screening: No deficits noted. Tuberculosis screening: No symptoms or risk factors identified. Assessment: 11:30 General: Appears in no apparent distress. Behavior is calm, cooperative. Pain: Denies ph pain. Neuro: Level of Consciousness is awake, alert, obeys commands, Oriented to person, place. Cardiovascular: Capillary refill < 3 seconds in bilateral fingers Patient's skin is warm and dry. Edema is 2+ to left ankle and right ankle. Respiratory: Airway is patent Respiratory effort is even, unlabored, Respiratory pattern is regular, symmetrical. GI: No signs and/or symptoms were reported involving the gastrointestinal system. : Parent/caregiver report the patient having Puss in straight cath urine. Derm: Skin is pink, warm \T\ dry. 12:30 Reassessment: Patient appears in no apparent distress at this time. No changes from kc6 previously documented assessment. Patient and/or family updated on plan of care and expected duration. Pain level reassessed. 13:30 Reassessment: Patient appears in no apparent distress at this time. No changes from kc6 previously documented assessment. Patient and/or family updated on plan of care and expected duration. Pain level reassessed. 14:24 Reassessment: Patient appears in no apparent distress at this time. No changes from kc6 previously documented assessment. Patient and/or family updated on plan of care and expected duration. Pain level reassessed. 15:13 Reassessment: Patient appears in no apparent distress at this time. No changes from kc6 previously documented assessment. Patient and/or family updated on plan of care and expected duration. Pain level reassessed. Vital Signs: 11:20 BP 102 / 63; Pulse 80; Resp 17; Temp 97.8; Pulse Ox 96% on R/A; Weight 60.33 kg; Height ll1 5 ft. 9 in. ; Pain 0/10; 14:24 Pulse 74; Resp 16 S; Pulse Ox 99% on R/A; kc6 11:20 Body Mass Index 19.64 (60.33 kg, 175.26 cm) ll1 11:20 Pain Scale: Adult ll1 ED Course: 11:18 Patient arrived in ED. ll1 11:20 Rikki Rivas DO is Attending Physician. ms3 11:21 Triage completed. ll1 11:21 Arm band placed on Patient placed in an exam room, on a stretcher. ll1 11:27 Shayla Blanchard, RN is Primary Nurse. ph 11:39 CMP Sent. ph 11:39 CBC with Diff Sent. ph 11:39 Initial lab(s) drawn, by me, sent to lab. Inserted saline lock: 20 gauge in right ph forearm, using aseptic technique. Blood collected. 11:40 Patient has correct armband on for positive identification. Bed in low position. Call ph light in reach. Side rails up X2. Pulse ox on. NIBP on. 13:05 Urine collected: straight cath specimen, cloudy, ilene colored. Straight cath inserted, ph using sterile technique, 14 Fr. Specimen obtained. Returned cloudy urine. Patient tolerated well. 16:38 No provider procedures requiring assistance completed. IV discontinued, intact, kc6 bleeding controlled, No redness/swelling at site. Pressure dressing applied. Administered Medications: 16:38 Drug: LevOfloxacin PO 750 mg PO once Route: PO; kc6 Medication: 11:40 VIS not applicable for this client. ph Outcome: 16:04 Discharge ordered by . ms3 16:38 Discharged to home via wheelchair, with significant other, kc6 16:38 Condition: good 16:38 Discharge instructions given to patient, significant other, Instructed on discharge instructions, follow up and referral plans. medication usage, Demonstrated understanding of instructions, follow-up care, medications, Prescriptions given X 1, 16:38 Patient left the ED. kc6 Signatures: Shayla Blanchard, RN LENA Alicia Le RN RN ll1 Rikki Rivas DO DO ms3 Carolyn Mccloud RN RN kc6
--- NOTE | 2024-01-20 16:05 | EDPHYS ---
Physician Documentation [facility] Name: Gaurav Hector Age: 78 yrs Sex: Male : 1945 Arrival Date: 01/20/2024 Time: 11:08 Bed 5 Private MD: ED Physician Rikki Rivas HPI: 01/19 11:26 This 78 yrs old Male presents to ER via Wheelchair with complaints of UTI. ms3 11:26 78-year-old male with past medical history of hypothyroidism, Parkinson's [place] [facility] [place] department for suspected UTI. Patient's states patient self caths and today pus came out. Patient's notes patient has recently been on amoxicillin, nitrofurantoin, AZO, Keflex for chronic urinary tract infections. Patient denies fevers, chills, pain.. Historical: - Allergies: 11:20 Sulfa (Sulfonamide Antibiotics); ll1 - PMHx: 11:20 Hypothyroidism; Parkinsons; ll1 - PSHx: 11:20 Adenoid excision; Tonsillectomy; ll1 - Immunization history:: Adult Immunizations up to date. - Infectious Disease History:: Denies. - Social history:: Smoking status: Patient denies any tobacco usage or history of. ROS: 11:26 Constitutional: Negative for fever, and chills. Neck: Negative for injury, pain, and ms3 swelling, Cardiovascular: Negative for chest pain, and palpitations. Respiratory: Negative for shortness of breath, cough, wheezing, and pleuritic chest pain, Abdomen/GI: Negative for abdominal pain, nausea, vomiting, diarrhea, and constipation, 11:26 : Positive for Discolored urine that appears to be pus, Exam: 11:26 Constitutional: This is a well developed, well nourished patient who is awake, alert, ms3 and in no acute distress. Head/Face: Normocephalic, atraumatic. Cardiovascular: Regular rate and rhythm with a normal S1 and S2. No gallops, murmurs, or rubs. Normal PMI, no JVD. No pulse deficits. Respiratory: Lungs have equal breath sounds bilaterally, clear to auscultation and percussion. No rales, rhonchi or wheezes noted. No increased work of breathing, no retractions or nasal flaring. Abdomen/GI: Soft, non-tender, with normal bowel sounds. No distension or tympany. No guarding or rebound. No evidence of tenderness throughout. Skin: Warm, dry with normal turgor. Normal color with no rashes, no lesions, and no evidence of cellulitis. Vital Signs: 11:20 BP 102 / 63; Pulse 80; Resp 17; Temp 97.8; Pulse Ox 96% on R/A; Weight 60.33 kg; Height ll1 5 ft. 9 in. ; Pain 0/10; 14:24 Pulse 74; Resp 16 S; Pulse Ox 99% on R/A; kc6 11:20 Body Mass Index 19.64 (60.33 kg, 175.26 cm) ll1 11:20 Pain Scale: Adult ll1 MDM: 11:26 Patient medically screened. ms3 11:26 Differential diagnosis: UTI, urethritis. ms3 16:04 Data reviewed: vital signs, nurses notes, lab test result(s), and as a result, I will ms3 discharge patient. Consideration of Admission/Observation Escalation of care including admission/observation considered. Discussed observation with patient and his and patient would like to be discharged home.. I considered the following discharge prescriptions or medication management in the emergency department Medications were administered in the Emergency Department. See MAR. Counseling: I had a detailed discussion with the patient and/or guardian regarding the historical points, exam findings, and any diagnostic results supporting the discharge/admit diagnosis, lab results, the need for outpatient follow up, to return to the emergency department if symptoms worsen or persist or if there are any questions or concerns that arise at home. Special discussion:. ED course: Discussed use of Levaquin in elderly patients with patient and his to include aortic rupture, tendon rupture. Patient is except risk. Patient offered observation and declines. Patient to follow-up with primary care physician in 2 to 3 days. Patient understands and agrees with plan. All questions were answered. Return precautions discussed include worsening symptoms, or any other concerns. 01/19 11:25 Order name: CBC with Diff; Complete Time: 11:57 ms3 01/19 11:25 Order name: CMP; Complete Time: 12:19 ms3 01/19 11:25 Order name: Urinalysis W/Microscopic; Complete Time: 14:13 ms3 07/01 13:28 Order name: Urine Culture EDMS 01/19 11:26 Order name: IV Saline Lock; Complete Time: 11:39 ms3 01/19 11:26 Order name: Labs collected and sent; Complete Time: 11:39 ms3 Administered Medications: 16:38 Drug: LevOfloxacin PO 750 mg PO once Route: PO; kc6 Disposition Summary: 01/20/24 16:04 Discharge Ordered Notes: Location: Home ms3 Condition: Stable ms3 Diagnosis - UTI/ Urinary tract infection, site not specified ms3 Followup: ms3 - With: Private Physician - When: 2 - 3 days - Reason: Recheck today's complaints Discharge Instructions: - Discharge Summary Sheet ms3 - Urinary Tract Infection, Adult ms3 Forms: - Medication Reconciliation Form ms3 - Antibiotic Education ms3 - Prescription Opioid Use ms3 - Patient Portal Instructions ms3 - Leadership Thank You Letter ms3 Prescriptions: - levofloxacin 750 mg Oral tablet - take 1 tablet ORAL route once daily; 6 tablet; Refills: 0, Product Selection ms3 Permitted Signatures: Dispatcher [employer] EDMS Alicia Le, RN RN ll1 Rikki Rivas, DO DO ms3 Carolyn Mccloud RN RN kc6
[2024-01-20] MEDS ORDERED: levoFLOXacin 750 MG TAB ONE (16:23)
[2024-01-20 17:29] VITALS: BP 102/63; TEMP 97.8; O2SAT 99
== END 2024-01-20 16:38 | disposition home or self-care (01) ==
LOC: ER 11:08
DX: N39.0 Urinary tract infection, site not specified (principal); G20.A1 Parkinson's disease without dyskinesia, without mention of fluctuations; Z88.2 Allergy status to sulfonamides
CPT/HCPCS: 36415; 51702; 80053; 81001; 85025; 87086; 87088; 99284

== ENCOUNTER 2024-04-18 18:00 | Inpatient (IN) | payer OTHER ==
[2024-04-18] MEDS ORDERED: POLYETHYL GLY 3350 17 GM/DOSE PO PRN (18:33)
[2024-04-18] MEDS: SCOPOLAMINE HYDROBROMIDE PATCH TD SCH (21:20)
[2024-04-18] MEDS: LORazepam 2 MG/ML VIAL IV PRN (21:20)
--- NOTE | 2024-04-18 22:02 | P.HP ---
Certification for Inpatient Patient admitted to: Inpatient Practitioner: I am a practitioner with admitting privileges, knowledge of patient current condition, hospital course, and medical plan of care. Services: Services provided to patient in accordance with Admission requirements found in Title 42 Section 412.3 of the Code of Federal Regulations Patient History Date of Service: 04/18/24 Reason for admission: RESPIRATORY FAILURE History of Present Illness: VERITO IS A PARKINSON'S DISEASE PATIENT WHO RECENTLY WAS IN THE HOSPITAL A WEEK AGO FOR SEVERE RESPIRATORY INFECTION. HE FAILED TO RECOVER. FAMILY BROUGHT HIM BACK TO ER. IDEALLY SHE SHOULD HAVE BEEN ON HOSPICE AT HOME AFTER LAST ADMISSION. 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 [facility] WAS CALLED FOR IN FOR URGENT ADMISSION BY ER DOCTORS PER WISH OF THE FAMILY. THEY WANT HIM COMFORTABLE. HE IS IN SEVERE DISTRESS AND ELIGIBLE FOR HOSPICE. Allergies Sulfa (Sulfonamide Antibiotics) Allergy (Verified 08/17/21 22:53) Itching/Hives/Rash Home medications list reviewed: Yes Home Medications: Carbidopa/Levodopa [Carbidopa-Levodopa 25-100 Tab] 2 tab PO SEECOM 03/28/24 Famotidine [Pepcid] 20 mg PO BID 03/28/24 Furosemide 20 mg PO DAILY 03/28/24 Levothyroxine [Synthroid*] 125 mcg PO DAILY 03/28/24 Linaclotide [Linzess] 145 mg PO DAILY 03/28/24 Sennosides [Senokot] 1 tab PO Q48H 03/28/24 - Past Medical/Surgical History Diabetic: No -: Parkinson's disease -: BPH -: Hypothyroidism -: Paroxsymal Atrial Fibrillation -: tonsilectomy Psychosocial/ Personal History: Patient is . - Family History Mother -: Heart disease - Social History Smoking Status: Unknown if ever smoked Alcohol use: Yes CD- Drugs: No Caffeine use: No Review of Systems is unable to be obtained Physical Examination - Physical Exam General: Acute distress, Severe distress, Unresponsive Neck: Supple Respiratory: Other (RAPID BREATHING. AUSCUALTION BY RN VISIT. I AM OUT OF TOWN AND DID A TELEHEALLTH VISIT WITH HELP OF [facility].) Neurological: Abnormal speech (NOT ABLE TO COMMUNICATE.) Assessment and Plan - Problems (Diagnosis) (1) Respiratory failure Current Visit: Yes Status: Acute Plan: HE IS A FRAIL MAN WITH SEVERE PARKINSON'S. FAMILY WANTS HIM ON HOSPICE TO GET HIM PAIN AND DISTRESS FREE. HE HAS SEVERE ASPIRATION PNEUMONIA LEADING TO RESPIRATORY FAILURE. I WENT OVER ORDERS WITH DR. ALMENDAREZ AND THEN THE NURSE IN CHARGE. (2) Aspiration pneumonia Current Visit: Yes Status: Acute (3) Parkinson disease Current Visit: Yes Status: Acute - Advance Directives Does patient have a Living Will: Yes Does patient have a Durable POA for Healthcare: Yes
[2024-04-18 23:14] VITALS: BMI 17.4
[2024-04-18] MEDS: HYDROMORPHONE HCL 1 MG/ML INJ IV PRN (23:55)
[2024-04-19] MEDS: HOME MED 1 EA UNK (Linaclotide [Linzess] 145 MCG Capsule) PO SCH (09:00)
[2024-04-19] MEDS: FUROSEMIDE 20 MG TABLET PO SCH (09:00)
[2024-04-19] MEDS: FAMOTIDINE 20 MG TAB PO SCH (10:01)
[2024-04-19] MEDS: CARBIDOPA/LEVODOPA 25/100 TAB PO SCH (11:00)
[2024-04-19] MEDS: SENOSIDES 8.6 MG TAB PO SCH (11:00)
[2024-04-20] MEDS: LEVOTHYROXINE SOD 0.125 MG TAB PO SCH (08:29)
--- NOTE | 2024-04-20 17:51 | P.PN ---
Subjective Date of Service: 04/20/24 Chief Complaint: RESPIRATORY FAILURE Subjective: Worsening HE IS UNCONSCIOUS. RAPID BREATHING. NO ONE AT BEDSIDE. Review of Systems is unable to be obtained Physical Examination - Vital Signs Temperature: 98.6 F Blood Pressure: 119/73 Pulse: 84 Respirations: 24 Pulse Ox (%): 92 - Physical Exam General: Cachectic, Moderate distress HEENT: Atraumatic, PERRLA, EOMI Neck: Supple, JVD not distended Respiratory: Diminished Cardiovascular: Irregular heart rate/rhythm Gastrointestinal: Normal bowel sounds, No tenderness Musculoskeletal: No tenderness Integumentary: No rashes Neurological: Other (COMATOSE) Lymphatics: No axilla or inguinal lymphadenopathy - Studies Medications List Reviewed: Yes Assessment And Plan - Current Problems (Diagnosis) (1) Respiratory failure Current Visit: Yes Status: Acute Plan: HE IS A FRAIL MAN WITH SEVERE PARKINSON'S. FAMILY WANTS HIM ON HOSPICE TO GET HIM PAIN AND DISTRESS FREE. HE HAS SEVERE ASPIRATION PNEUMONIA LEADING TO RESPIRATORY FAILURE. I WENT OVER ORDERS WITH DR. ALMENDAREZ AND THEN THE NURSE IN CHARGE. Qualifiers: Chronicity: acute on chronic (2) Aspiration pneumonia Current Visit: Yes Status: Acute Plan: HIS OXYGEN SAT IS ABOUT 90% ON 6 LT NC WITH RAPID BREATHING. IF OKAY WITH FAMILY WE CAN STOP OXYGEN. HE WILL NOT BE UNCOMFORTABLE. (3) Parkinson disease Current Visit: Yes Status: Acute
[2024-04-21] MEDS: LEVOTHYROXINE SOD 0.125 MG TAB PO SCH (06:30)
--- NOTE | 2024-04-21 13:08 | P.PN ---
Subjective Date of Service: 04/21/24 Chief Complaint: RESPIRATORY FAILURE Subjective: Worsening HE IS UNCONSCIOUS. RAPID BREATHING. NO ONE AT BEDSIDE. VERITO IS COMATOSE HIS BP IS DROPPING I TALKED TO HOSPICE NURSES TO STOP OXYGEN IF OKAY WITH FAMILY IT IS NOT GOING TO HELP HIM ANY LONGER. Physical Examination - Vital Signs Temperature: 97.5 F Blood Pressure: 83/51 Pulse: 101 Respirations: 15 Pulse Ox (%): 94 - Studies Medications List Reviewed: Yes Assessment And Plan - Current Problems (Diagnosis) (1) Respiratory failure Current Visit: Yes Status: Acute Plan: HE IS A FRAIL MAN WITH SEVERE PARKINSON'S. FAMILY WANTS HIM ON HOSPICE TO GET HIM PAIN AND DISTRESS FREE. HE HAS SEVERE ASPIRATION PNEUMONIA LEADING TO RESPIRATORY FAILURE. I WENT OVER ORDERS WITH DR. ALMENDAREZ AND THEN THE NURSE IN CHARGE. Qualifiers: Chronicity: acute on chronic (2) Aspiration pneumonia Current Visit: Yes Status: Acute Plan: HIS OXYGEN SAT IS ABOUT 90% ON 6 LT NC WITH RAPID BREATHING. IF OKAY WITH FAMILY WE CAN STOP OXYGEN. HE WILL NOT BE UNCOMFORTABLE. (3) Parkinson disease Current Visit: Yes Status: Acute
[2024-04-22] MEDS: LORazepam 2 MG/ML VIAL IV SCH (14:30)
[2024-04-22] MEDS: HYDROMORPHONE HCL 1 MG/ML INJ IV SCH (16:52)
--- NOTE | 2024-04-22 18:06 | P.PN ---
Subjective Date of Service: 04/22/24 Chief Complaint: RESPIRATORY FAILURE Subjective: Worsening HE IS UNCONSCIOUS. RAPID BREATHING. NO ONE AT BEDSIDE. VERITO IS COMATOSE HIS BP IS DROPPING I TALKED TO HOSPICE NURSES TO STOP OXYGEN IF OKAY WITH FAMILY IT IS NOT GOING TO HELP HIM ANY LONGER. AGITATED, UNRESPONSIVE I ASKED NURSE TO TALK TO FAMILY ABOUT STOPPING OXYGEN. THEY ARE NOT READY YET. Review of Systems is unable to be obtained Physical Examination - Vital Signs Temperature: 99.9 F Blood Pressure: 80/48 Pulse: 99 Respirations: 14 Pulse Ox (%): 95 - Physical Exam General: Cachectic, Mild distress, Unresponsive Neck: Supple Respiratory: Diminished (RAPID) Cardiovascular: Regular rate/rhythm (TACHYC.) - Studies Medications List Reviewed: Yes Assessment And Plan - Current Problems (Diagnosis) (1) Respiratory failure Current Visit: Yes Status: Acute Plan: HE IS A FRAIL MAN WITH SEVERE PARKINSON'S. FAMILY WANTS HIM ON HOSPICE TO GET HIM PAIN AND DISTRESS FREE. HE HAS SEVERE ASPIRATION PNEUMONIA LEADING TO RESPIRATORY FAILURE. I WENT OVER ORDERS WITH DR. ALMENDAREZ AND THEN THE NURSE IN CHARGE. IDEALLY HE SHOULD BE OFF OXYGEN NOW SO HE CAN PASS PEACEFULLY FAMILY IS NOT READY YET MAKE MEDS SCHEDULED HE IS UNCOMFORTABLE. Qualifiers: Chronicity: acute on chronic (2) Aspiration pneumonia Current Visit: Yes Status: Acute Plan: HIS OXYGEN SAT IS ABOUT 90% ON 6 LT NC WITH RAPID BREATHING. IF OKAY WITH FAMILY WE CAN STOP OXYGEN. HE WILL NOT BE UNCOMFORTABLE. (3) Parkinson disease Current Visit: Yes Status: Acute
[2024-04-22 21:32] VITALS: BP 82/57; TEMP 97.7
[2024-04-23 00:52] VITALS: O2SAT 83
--- NOTE | 2024-04-24 13:18 | P.DS ---
Admission Date: 04/18/24 Discharge Date: 04/24/24 Disposition: Discharge Condition: Reason for Admission: RESPIRATORY FAILURE - Problems (1) Respiratory failure Status: Acute Qualifiers: Chronicity: acute on chronic (2) Aspiration pneumonia Status: Acute (3) Parkinson disease Status: Acute Brief History of Present Illness: VERITO IS A PARKINSON'S DISEASE PATIENT WHO RECENTLY WAS IN THE HOSPITAL A WEEK AGO FOR SEVERE RESPIRATORY INFECTION. HE FAILED TO RECOVER. FAMILY BROUGHT HIM BACK TO ER. IDEALLY SHE SHOULD HAVE BEEN ON HOSPICE AT HOME AFTER LAST ADMISSION. 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 [facility] WAS CALLED FOR IN FOR URGENT ADMISSION BY ER DOCTORS PER WISH OF THE FAMILY. THEY WANT HIM COMFORTABLE. HE IS IN SEVERE DISTRESS AND ELIGIBLE FOR HOSPICE. Hospital Course: MR LLANES CAME WITH RESPIRATORY FAILURE FROM PNEUMONIA. FAMILY ASKED FOR HOSPICE HE FAILED TOR RECOVER. HE EXPECTED IN A FEW DAYS. HE WAS KEPT COMFORTABLE. Vital Signs/Physical Exam: Temp Pulse Resp BP Pulse Ox 97.7 F 112 H 14 82/57 L 80 L 04/22/24 20:00 04/22/24 20:00 04/23/24 00:19 04/22/24 20:00 04/23/24 00:19 Home Medications: Carbidopa/Levodopa [Carbidopa-Levodopa 25-100 Tab] 2 tab PO SEECOM 03/28/24 Famotidine [Pepcid] 20 mg PO BID 03/28/24 Furosemide 20 mg PO DAILY 03/28/24 Levothyroxine [Synthroid*] 125 mcg PO DAILY 03/28/24 Linaclotide [Linzess] 145 mg PO DAILY 03/28/24 Sennosides [Senokot] 1 tab PO Q48H 03/28/24 Followup: Kev Swan MD [Primary Care Provider] -
== END 2024-04-23 03:55 | disposition expired | DRG 951 ==
LOC: 4TH 18:00
PROVIDERS: ADMIT Internal Medicine; ATTEND Internal Medicine
DX: Z51.5 Encounter for palliative care (principal)
CPT/HCPCS: J1170